=== PATIENT | male | born 1960 | race Caucasian/White ===

== ENCOUNTER → 2020-05-30 12:27 | Outpatient (BNVA) | payer BC, SELFPAY | PROVIDERS: PCP Physician Assistant; Referring Provider Physician Assistant; Visit Provider Physician Assistant | DX: Z76.89 Persons encountering health services in other specified circumstances (principal) ==

== ENCOUNTER 2020-07-06 09:08 | Outpatient (REF) | payer BC, SELFPAY ==
--- NOTE | 2020-07-06 09:11 | XR_ITS ---
EXAMINATION: XR HIP, LEFT CLINICAL INFORMATION: Left hip pain. COMPARISON: 05/24/2020 TECHNIQUE: Pelvis 2 views. Left hip 2 views. FINDINGS: LEFT HIP: Left hip arthroplasty in position. Stable positioning of the arthroplasty components. No evidence of acute fracture. PELVIS: Status post right total hip arthroplasty. Stable positioning. No evidence of fracture or hardware loosening. Gas and stool projected over the pelvic bones limiting evaluation. No acute pelvic fractures. Stable sclerotic focus about the superior aspect of the right pubis. XR/XR hip LT w PEL1V IMPRESSION: Stable left total hip arthroplasty. No acute findings. Stable right total hip arthroplasty. No evidence of hardware failure. Stable sclerotic focus above the superior aspect of the right pubis, of uncertain significance.
== END 2020-07-06 09:09 | disposition home or self-care (01) ==
LOC: HO.HOSX 09:08
PROVIDERS: PCP Physician Assistant; Referring Provider Physician Assistant; Visit Provider Orthopaedic Surgery
DX: M25.552 Pain in left hip (principal); Z96.642 Presence of left artificial hip joint
CPT/HCPCS: 73502

== ENCOUNTER 2020-08-17 09:02 | Outpatient (REF) | payer BC, SELFPAY ==
--- NOTE | 2020-08-17 09:07 | XR_ITS ---
EXAMINATION: XR HIP, LEFT CLINICAL INFORMATION: Left hip pain COMPARISON: Previous x-ray 07/06/2020 TECHNIQUE: Two views of the left hip and 2 views of the pelvis. FINDINGS: There are bilateral hip replacements in satisfactory position. No fracture, dislocation or x-ray evidence of loosening is seen. Bones of the pelvis are unremarkable. Soft tissues are unremarkable. XR/XR hip LT w PEL1V IMPRESSION: Satisfactory appearance of bilateral hip replacements.
== END 2020-08-17 09:03 | disposition home or self-care (01) ==
LOC: HO.HOSX 09:02
PROVIDERS: PCP Physician Assistant; Visit Provider Orthopaedic Surgery
DX: M16.12 Unilateral primary osteoarthritis, left hip (principal); M25.552 Pain in left hip
CPT/HCPCS: 73502

== ENCOUNTER → 2020-12-20 08:52 | Outpatient (BNVA) | payer BC, SELFPAY | PROVIDERS: PCP Physician Assistant; Visit Provider Orthopaedic Surgery ==

== ENCOUNTER 2021-05-11 08:11 | Outpatient (REF) | payer BC, SELFPAY ==
--- NOTE | ~2021-05-11 | XR_ITS ---
EXAMINATION: XR PELVIS XR HIP, RIGHT XR HIP, LEFT CLINICAL INFORMATION: Pain COMPARISON: Hip radiograph from 08/17/2020, right hip radiograph from 04/06/2020 TECHNIQUE: 2 views of the pelvis and 2 views of each hip FINDINGS: No acute visible fracture or dislocation. Status post bilateral hip arthroplasties. Orthopedic hardware is grossly intact. Degenerative changes of the lumbosacral junction. Pelvic phleboliths are noted. Soft tissues are unremarkable. XR/XR pelvis 1-2V IMPRESSION: 1. Status post bilateral hip arthroplasty with intact orthopedic hardware. 2. No acute visible fracture or dislocation.
--- NOTE | ~2021-05-11 | XR_ITS ---
EXAMINATION: XR PELVIS XR HIP, RIGHT XR HIP, LEFT CLINICAL INFORMATION: Pain COMPARISON: Hip radiograph from 08/17/2020, right hip radiograph from 04/06/2020 TECHNIQUE: 2 views of the pelvis and 2 views of each hip FINDINGS: No acute visible fracture or dislocation. Status post bilateral hip arthroplasties. Orthopedic hardware is grossly intact. Degenerative changes of the lumbosacral junction. Pelvic phleboliths are noted. Soft tissues are unremarkable. XR/XR hip RT min 2V IMPRESSION: 1. Status post bilateral hip arthroplasty with intact orthopedic hardware. 2. No acute visible fracture or dislocation.
--- NOTE | ~2021-05-11 | XR_ITS ---
EXAMINATION: XR PELVIS XR HIP, RIGHT XR HIP, LEFT CLINICAL INFORMATION: Pain COMPARISON: Hip radiograph from 08/17/2020, right hip radiograph from 04/06/2020 TECHNIQUE: 2 views of the pelvis and 2 views of each hip FINDINGS: No acute visible fracture or dislocation. Status post bilateral hip arthroplasties. Orthopedic hardware is grossly intact. Degenerative changes of the lumbosacral junction. Pelvic phleboliths are noted. Soft tissues are unremarkable. XR/XR hip LT min 2V IMPRESSION: 1. Status post bilateral hip arthroplasty with intact orthopedic hardware. 2. No acute visible fracture or dislocation.
== END 2021-05-11 08:12 | disposition home or self-care (01) ==
LOC: HO.HOSX 08:11
PROVIDERS: Visit Provider Physician Assistant
DX: Z96.642 Presence of left artificial hip joint (principal)
CPT/HCPCS: 72170; 73502

== ENCOUNTER 2021-06-10 09:40 | Emergency (ER) | payer BC, SELFPAY ==
--- NOTE | ~2021-06-10 | US_ITS ---
EXAMINATION: US VENOUS ULTRASOUND WITH DOPPLER LOWER EXTREMITY, RIGHT CLINICAL INFORMATION: Right lower extremity swelling. COMPARISON: None TECHNIQUE: Ultrasound of the deep veins is performed from the hip to the calf with compression sonography and color and pulse Doppler assessment. Spectral analysis with color-flow imaging is performed. FINDINGS: There is normal venous compression and respiratory variation and augmented flow of the common femoral and the profunda femoral veins. Nonocclusive thrombus is identified starting from the proximal thigh involving the femoral vein extending into the popliteal vein and the catheter. The peroneal veins are not visualized. Evaluation is slightly technically limited due to patient's body habitus. There is no significant popliteal fossa cyst. US/US venous duplex LE RT IMPRESSION: Nonocclusive thrombus extending from the level of the proximal thigh to the calf involving the right femoral and popliteal veins. Slightly technically limited study due to patient's body habitus.
--- NOTE | ~2021-06-10 | XR_ITS ---
EXAMINATION: XR TIBIA AND FIBULA, RIGHT CLINICAL INFORMATION: Cellulitis. Rule out osteomyelitis. COMPARISON: None TECHNIQUE: AP and lateral views of the right tibia and fibula were obtained. FINDINGS: No fracture of the right tibia or fibula. There is mild diffuse soft tissue swelling of the right calf. No radiopaque foreign body identified. No gross cortical irregularity to suggest osteomyelitis. Visualized portion of the knee and ankle are grossly unremarkable. Mild vascular calcifications noted. XR/XR tibia fibula RT 2V IMPRESSION: No radiographic evidence to suggest osteomyelitis within the right tibia or fibula. If high clinical suspicion persists, further evaluation can be obtained with MRI imaging.
[2021-06-10 09:58] VITALS: BP 165/101; PULSE 94; RESP 18; TEMP 36.7; O2SAT 96; BMI 47.0
[2021-06-10 10:00] VITALS: BP 170/99; PULSE 94
--- NOTE | 2021-06-10 11:13 | ED.EXTPRO ---
HPI - Extremity Problem General Chief complaint: Extremity Problem Stated complaint: R LEG SWELLING Time Seen by Provider: 06/10/21 09:50 Source: patient Mode of arrival: ambulatory Limitations: no limitations History of Present Illness HPI Narrative: 61-year-old male came in for evaluation of her right lower extremities swelling. For the past week patient notice increased swelling of her right lower extremities, patient been having issue with chronic edema to both lower extremities after he had bilateral hip replacement, right lower extremities edema was worsening over the past week, patient declined trauma history to the right lower extremities, history of recent travel, no history of recent prolonged immobilization. Patient also noted tenderness, hotness, redness to the right lower extremities. No fever, no chills. Patient declined chest pain, shortness of breath. Related Data Home Medications Medication Instructions Recorded Confirmed levothyroxine 50 mcg tablet 50 mcg PO DAILY 05/28/20 05/28/20 lisinopril 20 1 tab PO DAILY 05/28/20 05/28/20 mg-hydrochlorothiazide 25 mg tablet multivitamin 1 cap PO DAILY 05/28/20 05/28/20 oxycodone 10 mg tablet 10 mg PO Q4H PRN 05/28/20 05/28/20 acetaminophen 325 mg tablet 325 mg PO QID PRN 05/30/20 (Tylenol) Previous Rx's Medication Instructions Recorded celecoxib 200 mg capsule 200 mg PO BID #180 cap 06/23/20 apixaban 5 mg (74 tabs) tablets in 5 mg PO PER PKG DIR #74 ea 06/10/21 a dose pack (Eliquis DVT-PE Treat 30D Start) doxycycline hyclate 100 mg tablet 100 mg PO BID #14 tab 06/10/21 Allergies Allergy/AdvReac Type Severity Reaction Status Date / Time No Known Allergies Allergy Verified 05/11/21 09:03 [No Known Allergies*] Review of Systems Review of Systems: All other systems are reviewed and are negative Constitutional: Reports as per HPI and Reports no additional constitutional complaints Eyes: Reports as per HPI and Reports no additional eye complaints Reports system reviewed and no additional complaints, except as documented Cardiovascular: Reports as per HPI and Reports no additional cardiovascular complaints Respiratory: Reports as per HPI and Reports no additional respiratory complaints Gastrointestinal: Reports as per HPI and Reports no additional gastrointestinal complaints Genitourinary: Reports no additional female genitourinary complaints Musculoskeletal: Reports no additional musculoskeletal complaints Skin/Breast: Reports system reviewed and no additional complaints, except as docu Psychiatric: Reports no additional psychiatric complaints Endocrine: Reports no additional endocrine complaints Hematologic/Lymphatic: Reports no additional hematologic/lymphatic complaints Allergic/Immunologic: Reports no additional allergic/immunologic complaints Reports system reviewed and no additional complaints, except as documented and Reports Abnormal speech present [facility] Past Medical History Medical History Hypertension Hypothyroidism Surgical History History of total right hip replacement (~05/23/20) Family History Family History Mother No problems noted. Father No problems noted. 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 Blood pressure normal. Heart rate normal. Respiration rate normal. Temperature normal. Oxygen saturation normal. Appearance: Alert. Oriented X3. No acute distress. Head: Normal external exam. Normocephalic. Atraumatic. No Peoples signs noted. No raccoon eyes noted Eyes: PERRLA. EOMI. Conjunctiva and sclera normal. Eyelids normal. ENT: TM's Normal. Pharynx normal. Uvula midline. Moist mucous membranes. No trismus noted. No drooling noted. No muffled voice noted. Neck: Normal inspection. Neck supple. FROM. No adenopathy. Thyroid Normal. No meningeal signs. No neck mass noted. CVS: Normal heart rate and rhythm. Heart sound normal. No murmurs noted. Pulses normal throughout. Respiratory: No respiratory distress. Painless inspiration. Breath sounds normal. No wheezes/rales/rhonchi noted. Chest nontender. No accessory muscle usage noted or decreased air movement noted. Abdomen: Soft and nontender. Bowel sounds normal in all 4 quadrants. No distention noted. No organomegaly noted. No visible injury noted. Back: No CVA tenderness. Full range of motion noted. Skin: Skin warm and dry. Normal skin color. Normal skin turgor. No rashes/lesions/lacerations noted. Extremities: +2 right lower extremity edema. 6 x 7 cm oval area of redness, hotness, tenderness on the brambila of her right leg, Extremities exhibit normal range of motion. Extremities nontender. Neuro: Oriented X 3. Cranial nerve exam: II-XII are grossly intact No motor deficit. No sensory deficit. Reflexes normal. Course Course Course Narrative: Assessment and plan. 61-year-old male came in with right lower extremities pain and swelling with cellulitis, patient had an ultrasound which revealed DVT. Patient has no pulmonary symptoms, with stable vital sign which do not reflect a picture of acute pulmonary embolism. Will start the patient on doxycycline for acute cellulitis, and start patient on Eliquis for DVT. MDM - Extremity (Nontraumatic) Lab Data Attestation: I reviewed the patient's lab results. Result diagrams: 06/10/21 11:28 06/10/21 11:28 Labs: Lab Results 06/10/21 06/10/21 06/10/21 Range/Units 11:28 11:28 11:28 WBC 10.3 (4.8-10.8) X10*3/uL RBC 5.00 (4.60-5.80) X10*6/uL Hgb 13.7 L (14.0-18.0) g/dl Hct 41.8 L (42-52) % MCV 83.6 (80-98) fL MCH 27.4 (27.0-33.0) pg MCHC 32.8 (31.0-36.0) g/dl RDW 13.7 (11.0-16.0) % Plt Count 269 (160-400) X10*3/uL MPV 9.3 L (9.4-12.4) fL Immature Gran % (Auto) 1.2 H (0.0-0.4) % Neut % (Auto) 66.7 (45-73) % Lymph % (Auto) 19.1 L (20-40) % [place] % (Auto) 11.3 H (2-11) % Eos % (Auto) 1.4 (0-4) % Baso % (Auto) 0.3 (0-2) % Lymph # (Auto) 2.0 (1.2-4.9) X10*3/uL [place] # (Auto) 1.2 (0.1-1.2) X10*3/uL Eos # (Auto) 0.1 (0.0-0.4) X10*3/uL Baso # (Auto) 0.0 (0.0-0.2) X10*3/uL Abs Immat Gran (auto) 0.12 H (0.00-0.03) X10*3/uL Absolute Neuts (auto) 6.9 (2.0-8.3) X10*3/uL Absolute Nucleated RBC 0.000 (0.0-0.012) X10*3/uL Nucleated RBC % (auto) 0.0 (0.0-0.2) /100WBC PT (9.9-13.0) SEC INR (0.9-1.1) APTT (24.1-38.0) SEC Sodium 138 (135-145) mmol/L Potassium 4.1 (3.3-5.1) mmol/L Chloride 104 (96-108) mmol/L Carbon Dioxide 23 (22-29) mmol/L Anion Gap 15 (12-20) BUN 18 H (9-16) mg/dL Creatinine 0.83 (0.5-1.4) mg/dL Estim Creat Clear Calc 144.7 Estimated GFR > 60 Random Glucose 117 H (60-115) mg/dL Lactic Acid 1.6 (0.5-2.0) mmol/L Calcium 9.4 (8.4-10.2) mg/dL Total Bilirubin 0.8 (0.0-1.0) mg/dL Direct Bilirubin 0.3 (0.0-0.5) mg/dL AST 29 (5-37) U/L ALT 37 (0-40) U/L Alkaline Phosphatase 52 (39-117) U/L Total Protein 7.6 (6.5-8.0) g/dL Albumin 3.9 (3.5-5.0) g/dL Lipase 30 (8-78) U/L Urine Color Urine Appearance Urine pH (5.0-8.0) Ur Specific [place] (1.005-1.025) Urine Protein (NEG-TRACE) MG/DL Urine Glucose (UA) (NEG) MG/DL Urine Ketones (NEG) MG/DL Urine Blood (NEG) Urine Nitrite (NEG) Ur Leukocyte Esterase (NEG) 06/10/21 06/10/21 Range/Units 11:28 12:03 WBC (4.8-10.8) X10*3/uL RBC (4.60-5.80) X10*6/uL Hgb (14.0-18.0) g/dl Hct (42-52) % MCV (80-98) fL MCH (27.0-33.0) pg MCHC (31.0-36.0) g/dl RDW (11.0-16.0) % Plt Count (160-400) X10*3/uL MPV (9.4-12.4) fL Immature Gran % (Auto) (0.0-0.4) % Neut % (Auto) (45-73) % Lymph % (Auto) (20-40) % [place] % (Auto) (2-11) % Eos % (Auto) (0-4) % Baso % (Auto) (0-2) % Lymph # (Auto) (1.2-4.9) X10*3/uL [place] # (Auto) (0.1-1.2) X10*3/uL Eos # (Auto) (0.0-0.4) X10*3/uL Baso # (Auto) (0.0-0.2) X10*3/uL Abs Immat Gran (auto) (0.00-0.03) X10*3/uL Absolute Neuts (auto) (2.0-8.3) X10*3/uL Absolute Nucleated RBC (0.0-0.012) X10*3/uL Nucleated RBC % (auto) (0.0-0.2) /100WBC PT 13.6 H (9.9-13.0) SEC INR 1.2 H (0.9-1.1) APTT 41.6 H (24.1-38.0) SEC Sodium (135-145) mmol/L Potassium (3.3-5.1) mmol/L Chloride (96-108) mmol/L Carbon Dioxide (22-29) mmol/L Anion Gap (12-20) BUN (9-16) mg/dL Creatinine (0.5-1.4) mg/dL Estim Creat Clear Calc Estimated GFR Random Glucose (60-115) mg/dL Lactic Acid (0.5-2.0) mmol/L Calcium (8.4-10.2) mg/dL Total Bilirubin (0.0-1.0) mg/dL Direct Bilirubin (0.0-0.5) mg/dL AST (5-37) U/L ALT (0-40) U/L Alkaline Phosphatase (39-117) U/L Total Protein (6.5-8.0) g/dL Albumin (3.5-5.0) g/dL Lipase (8-78) U/L Urine Color YELLOW Urine Appearance HAZY Urine pH 6.0 (5.0-8.0) Ur Specific [place] 1.025 (1.005-1.025) Urine Protein NEG (NEG-TRACE) MG/DL Urine Glucose (UA) NEG (NEG) MG/DL Urine Ketones NEG (NEG) MG/DL Urine Blood NEG (NEG) Urine Nitrite NEG (NEG) Ur Leukocyte Esterase NEG (NEG) Imaging Data Right lower extremity ultrasound: Radiologist's impression: Nonocclusive thrombus extending from the level of the proximal thigh to the calf involving the right femoral and popliteal veins. ? Slightly technically limited study due to patient's body habitus. Right leg x-ray: Radiologist's impression: No radiographic evidence to suggest osteomyelitis within the right tibia or fibula. If high clinical suspicion persists, further evaluation can be obtained with MRI imaging. ? Discharge Plan Discharge Clinical Impression: Cellulitis of leg, right Deep venous thrombosis Qualifiers: DVT location: lower extremity Affected thrombotic vein of extremity: femoral Chronicity: acute Laterality: right Qualified Code(s): I82.411 - Acute embolism and thrombosis of right femoral vein Patient Disposition: Home, Self-Care Instructions: Cellulitis (ED), Deep Vein Thrombosis (ED), Deep Vein Thrombosis Prevention (ED) Prescriptions: New doxycycline hyclate 100 mg tablet 100 mg PO BID Qty: 14 RF: 0 Eliquis DVT-PE Treat 30D Start 5 mg (74 tabs) tablets,dose pack 5 mg PO PER PKG DIR Qty: 74 RF: 0 No Action celecoxib 200 mg capsule 200 mg PO BID Qty: 180 RF: 0 levothyroxine 50 mcg tablet 50 mcg PO DAILY RF: 0 lisinopril-hydrochlorothiazide 20-25 mg tablet 1 tab PO DAILY RF: 0 oxycodone 10 mg tablet 10 mg PO Q4H PRNRF: 0 multivitamin Capsule 1 cap PO DAILY RF: 0 Referrals: Radha Chavez PA [Primary Care Provider] - 2 days
[2021-06-10 11:44] LABS: MANUAL DIFF FLAG NO
[2021-06-10 11:45] LABS: Basophils Percent Auto 0.3 % (0-2); Eosinophils Absolute Auto 0.1 X10*3/uL (0.0-0.4); Eosinophils Percent Auto 1.4 % (0-4); Hematocrit 41.8 % (42-52); Hemoglobin 13.7 g/dl (14.0-18.0); Imm Gran Abs Auto 0.12 X10*3/uL (0.00-0.03); Imm Gran Pct Auto 1.2 % (0.0-0.4); Lymphocytes Percent Auto 19.1 % (20-40); Mean Corpuscular HGB Conc 32.8 g/dl (31.0-36.0); Mean Corpuscular Hemoglobin 27.4 pg (27.0-33.0); Mean Corpuscular Volume 83.6 fL (80-98); Mean Platelet Volume 9.3 fL (9.4-12.4); Monocytes Absolute Auto 1.2 X10*3/uL (0.1-1.2); Monocytes Percent Auto 11.3 % (2-11); Neutrophils Absolute Auto 6.9 X10*3/uL (2.0-8.3); Neutrophils Percent Auto 66.7 % (45-73); Platelet Count 269 X10*3/uL (160-400); Red Cell Distribution Width 13.7 % (11.0-16.0); White Blood Count 10.3 X10*3/uL (4.8-10.8)
[2021-06-10 11:47] LABS: Appearance Urine HAZY; Color Urine YELLOW; Glucose Urine UA NEG (NEG); Leukocyte Esterase Urine NEG (NEG); Nitrite Urine NEG (NEG); Specific Gravity - Urine 1.025 (1.005-1.025); Urine Blood NEG (NEG); Urine Ketones NEG (NEG); Urine Protein NEG (NEG-TRACE)
[2021-06-10 11:55] LABS: Lactic Acid 1.6 mmol/L (0.5-2.0)
[2021-06-10 12:01] LABS: Alanine Aminotransferase 37 U/L (0-40); Albumin Level 3.9 g/dL (3.5-5.0); Alkaline Phosphatase 52 U/L (39-117); Anion Gap 15 (12-20); Aspartate Amino Transferase 29 U/L (5-37); Bilirubin Direct 0.3 mg/dL (0.0-0.5); Bilirubin Total 0.8 mg/dL (0.0-1.0); Blood Urea Nitrogen 18 mg/dL (9-16); Calcium 9.4 mg/dL (8.4-10.2); Carbon Dioxide 23 mmol/L (22-29); Chloride 104 mmol/L (96-108); Creatinine Clr Calc Pharmacy 144.7; Estimated Glomerular Filt Rate > 60; Glucose Random 117 mg/dL (60-115); Lipase 30 U/L (8-78); Potassium 4.1 mmol/L (3.3-5.1); Sodium 138 mmol/L (135-145); Total Protein 7.6 g/dL (6.5-8.0)
[2021-06-10 12:04] VITALS: BP 146/85; PULSE 87; RESP 18; TEMP 36.8; O2SAT 98
[2021-06-10] MEDS: 0.9 % Sodium Chloride 1,000 ML 999 ML IVCONT (12:15)
[2021-06-10 12:30] LABS: INTERNATIONAL NORM RATIO 1.2 (0.9-1.1); Prothrombin Time 13.6 SEC (9.9-13.0)
[2021-06-10 12:32] LABS: Partial Thromboplastin Time 41.6 SEC (24.1-38.0)
[2021-06-10 14:00] VITALS: BP 147/87
== END 2021-06-10 14:17 | disposition home or self-care (01) ==
PROVIDERS: Emergency Provider Emergency Medicine; PCP Physician Assistant
DX: I82.411 Acute embolism and thrombosis of right femoral vein (principal); L03.115 Cellulitis of right lower limb; I10 Essential (primary) hypertension; Z96.643 Presence of artificial hip joint, bilateral
CPT/HCPCS: 36415; 73590; 80048; 80076; 81003; 83605; 83690; 85025; 85610; 85730; 87040; 93971; 96360; 99283; 99284

== ENCOUNTER 2022-04-02 14:33 | Inpatient (IN) | payer BC, SELFPAY ==
--- NOTE | ~2022-04-02 | CT_ITS ---
EXAMINATION: CT HEAD WITHOUT CONTRAST CLINICAL INFORMATION: Confusion on Eliquis. COMPARISON: None. TECHNIQUE: Contiguous axial imaging was performed from the skull base to vertex without intravenous contrast. This CT examination was performed using dose optimization techniques as appropriate, variously including the following: * Automated exposure control * Adjustment of mA and/or kV according to patient size (this includes techniques or standardized protocols for targeted exams where dose is matched to indication/reason for exam; i.e. extremities or head) Use of iterative reconstruction technique DLP: 733 mGy-cm. FINDINGS: There is an area of hypoattenuation with loss of robertson to white matter differentiation in the high right parietal lobe. There is no evidence of acute intracranial hemorrhage. No abnormal mass effect or midline shift is seen. No extra-axial fluid collections are identified. No hydrocephalus. No significant volume loss. The osseous structures and soft tissues are normal. Right mastoid air cell effusion. The left mastoid air cells and visualized portions of the paranasal sinuses are well aerated. CT/CT head/brain wo con IMPRESSION: No intracranial hemorrhage. Area of hypoattenuation with loss of robertson to white matter differentiation involving the right parietal lobe, suggestive of infarct of uncertain chronicity. This could be acute/subacute. No prior for comparison.
--- NOTE | ~2022-04-02 | US_ITS ---
EXAMINATION: US EXTRACRANIAL CAROTID DUPLEX, BILATERAL CLINICAL INFORMATION: Stroke. COMPARISON: None TECHNIQUE: Real-time ultrasound and Doppler techniques (integrating B-mode 2-D vascular images, Doppler spectral analysis and color-flow Doppler imaging) were utilized to interrogate the extracranial carotid arteries, the vertebral arteries and proximal subclavian arteries bilaterally. The degree of stenosis is determined by criteria similar to NASCET. Exam is limited due to patient condition and body habitus. FINDINGS: Right Side: 1. There is calcified atherosclerotic plaque seen in the bifurcation/proximal ICA region. 2. The common carotid artery PSV proximally is 105 cm/s and distally 75 cm/s. 3. The proximal internal carotid artery velocities are 101 cm/s systolic and 17 cm/s diastolic. 4. The proximal external carotid artery PSV is 72 cm/s. 5. The vertebral artery is not seen. 6. The subclavian artery waveforms are normal.. Left Side: 1. There is calcified atherosclerotic plaque seen in the bifurcation/proximal ICA region. 2. The common carotid artery PSV proximally is 87 cm/s and distally 91 cm/s. 3. The proximal internal carotid artery velocities are 67 cm/s systolic and 14 cm/s diastolic. 4. The proximal external carotid artery PSV is 112 cm/s. 5. The vertebral artery is not seen. 6. The subclavian artery waveforms are normal. US/US carotid duplex BI IMPRESSION: Limited exam. 1. RIGHT: Calcified plaque and mild 0-49% right ICA stenosis. Right vertebral artery not seen. 2. LEFT: Calcified plaque and mild 0-49% left ICA stenosis. Left vertebral artery not seen.
--- NOTE | ~2022-04-02 | US_ITS ---
EXAMINATION: US ABDOMEN COMPLETE CLINICAL INFORMATION: Hyperbilirubinemia. COMPARISON: None TECHNIQUE: Real-time imaging of the abdominal viscera. Technically limited study secondary to body habitus and patient inability to cooperate. FINDINGS: PANCREAS: Not visualized due to bowel gas. ABDOMINAL AORTA: Not visualized due to bowel gas. INFERIOR VENA CAVA: Not visualized due to bowel gas. LIVER: Liver echotexture is increased. The liver is enlarged, right lobe measuring 24 cm in length The liver contour is normal. No focal hepatic lesion. There is no intrahepatic biliary duct dilatation seen. GALLBLADDER: Normal. The gallbladder is physiologically distended without evidence of stones, sludge, polyps, wall thickening or pericholecystic fluid. COMMON BILE DUCT: Normal in caliber measuring 0.7 cm in diameter. RIGHT KIDNEY: Normal. No hydronephrosis. No renal calculi or focal parenchymal lesions. The kidney measures 15.0 cm in maximum dimension. LEFT KIDNEY: Normal. No hydronephrosis. No renal calculi or focal parenchymal lesions. The kidney measures 13.5 cm in maximum dimension. SPLEEN: The spleen is slightly enlarged. The spleen measures 15.7 cm in maximum dimension. FREE FLUID: None. US/US abdomen complete IMPRESSION: Enlarged echogenic liver and enlarged spleen. Limited visualization of the pancreas, aorta and IVC
--- NOTE | ~2022-04-02 | US_ITS ---
EXAMINATION: US VENOUS ULTRASOUND WITH DOPPLER LOWER EXTREMITY, BILATERAL CLINICAL INFORMATION: Edema. History of DVT. Pain. COMPARISON: 06/10/2020 oh TECHNIQUE: Ultrasound of the deep veins is performed from the hip to the calf with compression sonography and color and pulse Doppler assessment. Spectral analysis with color-flow imaging is performed. FINDINGS: RIGHT: Thrombus identified in the femoral vein at the mid to distal aspect extending through the popliteal vein. The common femoral vein is patent. The posterior tibial vein is patent. There is no significant popliteal fossa cyst. LEFT: There is chronic-appearing partially occlusive thrombus in the femoral vein at the mid to distal thigh. The common femoral vein and profunda femoral vein are patent. Popliteal vein and visualized calf veins are patent. There is no significant popliteal fossa cyst. US/US venous duplex LE BI IMPRESSION: On the right, occlusive thrombus within the femoral vein at the mid to distal aspect through the popliteal vein. On the left, partially occlusive thrombus in the femoral vein, chronic appearing. This critical result was discussed with Merline Mock MD by telephone at 04/02/2022 11:24 PM and it was ascertained that the content and urgency of the report was understood at the time of direct communication.
--- NOTE | ~2022-04-02 | NM_ITS ---
EXAMINATION: PULMONARY PERFUSION STUDY CLINICAL INFORMATION: DVT, rule out PE COMPARISON: No previous lung scan or recent radiographs are available for comparison. TECHNIQUE: Following the intravenous injection of 4.0 mCi Tc-99m MAA, the lungs were imaged in the anterior and posterior, left and right lateral and ALBANIAN, MIJARES, LPO, and RPO projections using a gamma scintillation camera. FINDINGS: No segmental perfusion defects are present. There is homogeneous distribution of activity bilaterally. There are no focal anatomic appearing perfusion defects present. The cardiomediastinal silhouette is mildly dilated. NM/NM pul perfusion IMPRESSION: Very low probability of pulmonary embolism. Dilated cardiomediastinal silhouette.
[2022-04-02 14:54] VITALS: BP 136/73; PULSE 96; RESP 16; TEMP 37.4; O2SAT 96; BMI 32.5
--- NOTE | 2022-04-02 21:58 | ECG_ITS ---
Test Reason : WEAKNESS Blood Pressure : / mmHG Vent. Rate : 092 BPM Atrial Rate : 092 BPM P-R Int : 166 ms QRS Dur : 116 ms QT Int : 390 ms P-R-T Axes : 014 047 045 degrees QTc Int : 482 ms Normal sinus rhythm cannot exclude Lateral infarct , age undetermined Abnormal ECG No previous ECGs available Referred By: Merline Mock Electronically Signed By:MARCELA JO
--- NOTE | 2022-04-02 22:04 | ED_ITS ---
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 Prior the pain medica tions last Saturday he has been experience chills, intermittent confusion, missed 3 days of his eliquis which is not like him, and on exam notes LLE more swollen, red/painful and hot to touch. He didn't mention this to [facility] ER when he went for his shoulder. His is concerned because he just seems more weak, confused at times and he is never cold. MD Complaint: generalized weakness and lack of energy Onset (ago): day(s) (6) Duration: intermittent Location: generalized Severity: moderate Quality: dull Relieving factors: none Exacerbating factors: other (having a hard time at work) Context: trauma/injury (hx of shoulder injury 02/26 but had been doing okay until last saturday when his chills and weakness started. ) Associated symptoms: confusion, fever/chills, loss of appetite and rash Related Data Home Medications Medication Instructions Recorded Confirmed levothyroxine 50 mcg tablet 50 mcg PO DAILY 05/28/20 05/28/20 lisinopril 20 1 tab PO DAILY 05/28/20 05/28/20 mg-hydrochlorothiazide 25 mg tablet multivitamin 1 cap PO DAILY 05/28/20 05/28/20 oxycodone 10 mg tablet 10 mg PO Q4H PRN 05/28/20 05/28/20 acetaminophen 325 mg tablet 325 mg PO QID PRN 05/30/20 (Tylenol) Previous Rx's Medication Instructions Recorded celecoxib 200 mg capsule 200 mg PO BID #180 caps 06/23/20 apixaban 5 mg (74 tabs) tablets in 5 mg PO PER PKG DIR #74 ea 06/10/21 a dose pack ([facility] DVT-PE Treat 30D Start) doxycycline hyclate 100 mg tablet 100 mg PO BID #14 tabs 06/10/21 Allergies Allergy/AdvReac Type Severity Reaction Status Date / Time No Known Allergies Allergy Verified 04/02/22 15:00 [No Known Allergies*] Review of Systems Review of Systems: Constitutional : No Fever, pos Chills ENT/Mouth : No sore throat, No Rhinorrhea Eyes: No Eye Pain, No Swelling, No Redness Cardiovascular : No Chest Pain, No SOB Respiratory : No Cough, No Sputum Gastrointestinal : No Nausea, No Vomiting, No Diarrhea, No abdominal Pain Genitourinary : No Dysuria, No Hematuria Musculoskeletal : pos joint pain, No Myalgias, No Joint Swelling Skin : No Skin Lesions, positive skin rash Neuro : pos Weakness, No Numbness, No Headache, pos confusion Psych : No Anxiety, No Depression Heme/Lymph: No Bruising, No Bleeding,No Lymphadenopathy Endocrine : No Polyuria, No Polydipsia All other systems reviewed and are negative [facility] Past Medical History Attestation statement: The following information was validated with the patient. Medical History DVT (deep venous thrombosis) Hypertension Hypothyroidism Surgical History History of total right hip replacement (~05/23/20) Family History Family History Mother No problems noted. Father No problems noted. 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 Oriented X3. No acute distress. Eyes: Pupils equal, round and reactive to light. ENT: Pharynx normal. Atraumatic Neck: Normal inspection. Neck supple. CVS: Normal heart rate and rhythm. Pulses normal. Respiratory: No respiratory distress. Breath sounds normal. Abdomen: Soft and nontender. Obese Skin: Skin warm and dry. Normal skin color. L leg anterior brambila - almost circumferential red hot to touch painful no crepitus felt no fluctuance some clear weeping noted in areas Extremities: bilateral pitting lower extremity edema 2+. L calf ttp Neuro: Oriented X 3. No motor deficit. No sensory deficit. L anterior brambila Course Course Course Narrative: call from Radiology - 1126pm - DVT US + bilateral DVT R occluse FV through knee, L partially occlusive looks more chronic once CT scan complete and no ICH will start on heparin has not been on DOAC in over 48 hours symptoms of confusion and onset 6 days ago - suspect subacute stroke given DVTs and JACY will start on heparin gtt repeat trop flat MDM - Weakness MDM Narrative Medical decision making narrative: 62 yo male with hx of arthritis, bilateral DVT on eliquis, HTN, hypothyroidism, R shoulder pain x 1 month s/p fall suspect rotator cuff but he has only had xrays at this time. He comes in with intermittent confusion, chills, LLE cellulitis - at this time will need labs, lactic acid, cultures, CT head for ICH given eliquis use and confusion reported at home. DVT studies of both legs - he missed his dose of eliquis for 3 days. IV zosyn for cellulitis ordered. Dispo per results and clinical improvement. Lab Data Result diagrams: 04/02/22 22:28 04/02/22 23:31 Labs: Lab Results 04/02/22 04/02/22 04/02/22 Range/Units 22:28 22:28 22:28 WBC 11.9 H (4.8-10.8) X10*3/uL RBC 4.94 (4.60-5.80) X10*6/uL Hgb 13.3 L (14.0-18.0) g/dl Hct 40.6 L (42.0-52.0) % MCV 82.2 (80.0-98.0) fL MCH 26.9 L (27.0-33.0) pg MCHC 32.8 (31.0-36.0) g/dl RDW 15.2 (11.0-16.0) % Plt Count 199 (160-400) X10*3/uL MPV 9.9 (9.4-12.4) fL Immature Gran % (Auto) Cancelled Neut % (Auto) Cancelled Lymph % (Auto) Cancelled [place] % (Auto) Cancelled Eos % (Auto) Cancelled Baso % (Auto) Cancelled Lymph # (Auto) Cancelled [place] # (Auto) Cancelled Eos # (Auto) Cancelled Baso # (Auto) Cancelled Abs Immat Gran (auto) Cancelled Absolute Neuts (auto) Cancelled Absolute Nucleated RBC 0.020 H (0.0-0.012) X10*3/uL Nucleated RBC % (auto) 0.2 (0.0-0.2) /100WBC Neutrophils % (Manual) 62 (45-73) % Band Neutrophils % 2 L (3-5) % Lymphocytes % (Manual) 13 L (20-40) % Monocytes % (Manual) 16 H (2-11) % Eosinophils % (Manual) 1 (0-4) % Metamyelocytes % 5 % Myelocytes % 1 % Abs Neuts (Manual) 7.6 (2.0-8.3) X10*3/uL Lymphocytes # (Manual) 1.5 (1.2-4.9) X10*3/uL Monocytes # (Manual) 1.9 H (0.1-1.2) X10*3/uL Eosinophils # (Manual) 0.1 (0.0-0.4) X10*3/uL Metamyelocytes # 0.6 X10*3/uL Myelocytes # 0.1 X10*/uL Toxic Granulation PRESENT Dohle Bodies PRESENT Platelet Estimate NORMAL (NORMAL) Plt Morphology Comment NORMAL RBC Morphology NORMAL PT 16.0 H (10.0-13.1) SEC INR 1.4 H (0.9-1.1) APTT (26.0-36.4) SEC D-Dimer High Sensitivty 2079 NG/ML Sodium (135-145) mmol/L Potassium (3.3-5.1) mmol/L Chloride (96-108) mmol/L Carbon Dioxide (22-29) mmol/L Anion Gap (12-20) BUN (9-16) mg/dL Creatinine (0.5-1.4) mg/dL Estim Creat Clear Calc Estimated GFR Random Glucose (60-115) mg/dL Lactic Acid (0.5-2.0) mmol/L Calcium (8.4-10.2) mg/dL Magnesium Total Bilirubin (0.0-1.0) mg/dL AST (5-37) U/L ALT (0-40) U/L Alkaline Phosphatase (39-117) U/L Total Creatine Kinase (38-174) U/L Troponin I High Sens 632.5 H* (<3.5-35.0) ng/L B-Natriuretic Peptide (<100) pg/mL Total Protein (6.5-8.0) g/dL Albumin (3.5-5.0) g/dL Urine Color Urine Appearance Urine pH (5.0-8.0) Ur Specific [place] (1.005-1.025) Urine Protein (NEG-TRACE) MG/DL Urine Glucose (UA) (NEG) MG/DL Urine Ketones (NEG) MG/DL Urine Blood (NEG) Urine Nitrite (NEG) Ur Leukocyte Esterase (NEG) Urine RBC (0) /HPF Urine WBC (0-4) /HPF Ur Squamous Epith Cells /LPF Amorphous Sediment /LPF Urine Bacteria /LPF Urine Mucus /LPF COVID-19 ([place]) (Negative) COVID-19 Clin Com 04/02/22 04/02/22 04/02/22 Range/Units 22:28 22:28 22:28 WBC (4.8-10.8) X10*3/uL RBC (4.60-5.80) X10*6/uL Hgb (14.0-18.0) g/dl Hct (42.0-52.0) % MCV (80.0-98.0) fL MCH (27.0-33.0) pg MCHC (31.0-36.0) g/dl RDW (11.0-16.0) % Plt Count (160-400) X10*3/uL MPV (9.4-12.4) fL Immature Gran % (Auto) Neut % (Auto) Lymph % (Auto) [place] % (Auto) Eos % (Auto) Baso % (Auto) Lymph # (Auto) [place] # (Auto) Eos # (Auto) Baso # (Auto) Abs Immat Gran (auto) Absolute Neuts (auto) Absolute Nucleated RBC (0.0-0.012) X10*3/uL Nucleated RBC % (auto) (0.0-0.2) /100WBC Neutrophils % (Manual) (45-73) % Band Neutrophils % (3-5) % Lymphocytes % (Manual) (20-40) % Monocytes % (Manual) (2-11) % Eosinophils % (Manual) (0-4) % Metamyelocytes % % Myelocytes % % Abs Neuts (Manual) (2.0-8.3) X10*3/uL Lymphocytes # (Manual) (1.2-4.9) X10*3/uL Monocytes # (Manual) (0.1-1.2) X10*3/uL Eosinophils # (Manual) (0.0-0.4) X10*3/uL Metamyelocytes # X10*3/uL Myelocytes # X10*/uL Toxic Granulation Dohle Bodies Platelet Estimate (NORMAL) Plt Morphology Comment RBC Morphology PT 16.6 H (10.0-13.1) SEC INR 1.4 H (0.9-1.1) APTT 31.4 (26.0-36.4) SEC D-Dimer High Sensitivty NG/ML Sodium (135-145) mmol/L Potassium (3.3-5.1) mmol/L Chloride (96-108) mmol/L Carbon Dioxide (22-29) mmol/L Anion Gap (12-20) BUN (9-16) mg/dL Creatinine (0.5-1.4) mg/dL Estim Creat Clear Calc Estimated GFR Random Glucose (60-115) mg/dL Lactic Acid (0.5-2.0) mmol/L Calcium (8.4-10.2) mg/dL Magnesium Total Bilirubin (0.0-1.0) mg/dL AST (5-37) U/L ALT (0-40) U/L Alkaline Phosphatase (39-117) U/L Total Creatine Kinase (38-174) U/L Troponin I High Sens (<3.5-35.0) ng/L B-Natriuretic Peptide 78 (<100) pg/mL Total Protein (6.5-8.0) g/dL Albumin (3.5-5.0) g/dL Urine Color Urine Appearance Urine pH (5.0-8.0) Ur Specific [place] (1.005-1.025) Urine Protein (NEG-TRACE) MG/DL Urine Glucose (UA) (NEG) MG/DL Urine Ketones (NEG) MG/DL Urine Blood (NEG) Urine Nitrite (NEG) Ur Leukocyte Esterase (NEG) Urine RBC (0) /HPF Urine WBC (0-4) /HPF Ur Squamous Epith Cells /LPF Amorphous Sediment /LPF Urine Bacteria /LPF Urine Mucus /LPF COVID-19 ([place]) Negative (Negative) COVID-19 Clin Com See Note 04/02/22 04/02/22 04/02/22 Range/Units 22:28 22:28 22:46 WBC (4.8-10.8) X10*3/uL RBC (4.60-5.80) X10*6/uL Hgb (14.0-18.0) g/dl Hct (42.0-52.0) % MCV (80.0-98.0) fL MCH (27.0-33.0) pg MCHC (31.0-36.0) g/dl RDW (11.0-16.0) % Plt Count (160-400) X10*3/uL MPV (9.4-12.4) fL Immature Gran % (Auto) Neut % (Auto) Lymph % (Auto) [place] % (Auto) Eos % (Auto) Baso % (Auto) Lymph # (Auto) [place] # (Auto) Eos # (Auto) Baso # (Auto) Abs Immat Gran (auto) Absolute Neuts (auto) Absolute Nucleated RBC (0.0-0.012) X10*3/uL Nucleated RBC % (auto) (0.0-0.2) /100WBC Neutrophils % (Manual) (45-73) % Band Neutrophils % (3-5) % Lymphocytes % (Manual) (20-40) % Monocytes % (Manual) (2-11) % Eosinophils % (Manual) (0-4) % Metamyelocytes % % Myelocytes % % Abs Neuts (Manual) (2.0-8.3) X10*3/uL Lymphocytes # (Manual) (1.2-4.9) X10*3/uL Monocytes # (Manual) (0.1-1.2) X10*3/uL Eosinophils # (Manual) (0.0-0.4) X10*3/uL Metamyelocytes # X10*3/uL Myelocytes # X10*/uL Toxic Granulation Dohle Bodies Platelet Estimate (NORMAL) Plt Morphology Comment RBC Morphology PT (10.0-13.1) SEC INR (0.9-1.1) APTT (26.0-36.4) SEC D-Dimer High Sensitivty NG/ML Sodium (135-145) mmol/L Potassium (3.3-5.1) mmol/L Chloride (96-108) mmol/L Carbon Dioxide (22-29) mmol/L Anion Gap (12-20) BUN (9-16) mg/dL Creatinine (0.5-1.4) mg/dL Estim Creat Clear Calc Estimated GFR Random Glucose (60-115) mg/dL Lactic Acid 1.7 (0.5-2.0) mmol/L Calcium (8.4-10.2) mg/dL Magnesium Cancelled Total Bilirubin (0.0-1.0) mg/dL AST (5-37) U/L ALT (0-40) U/L Alkaline Phosphatase (39-117) U/L Total Creatine Kinase (38-174) U/L Troponin I High Sens (<3.5-35.0) ng/L B-Natriuretic Peptide (<100) pg/mL Total Protein (6.5-8.0) g/dL Albumin (3.5-5.0) g/dL Urine Color YELLOW Urine Appearance CLEAR Urine pH 6.0 (5.0-8.0) Ur Specific [place] 1.015 (1.005-1.025) Urine Protein TRACE (NEG-TRACE) MG/DL Urine Glucose (UA) NEG (NEG) MG/DL Urine Ketones NEG (NEG) MG/DL Urine Blood TRACE (NEG) Urine Nitrite NEG (NEG) Ur Leukocyte Esterase NEG (NEG) Urine RBC 0 (0) /HPF Urine WBC 0 (0-4) /HPF Ur Squamous Epith Cells NONE /LPF Amorphous Sediment 1+ /LPF Urine Bacteria NONE /LPF Urine Mucus 1+ /LPF COVID-19 ([place]) (Negative) COVID-19 Clin Com 04/02/22 04/03/22 Range/Units 23:31 01:20 WBC (4.8-10.8) X10*3/uL RBC (4.60-5.80) X10*6/uL Hgb (14.0-18.0) g/dl Hct (42.0-52.0) % MCV (80.0-98.0) fL MCH (27.0-33.0) pg MCHC (31.0-36.0) g/dl RDW (11.0-16.0) % Plt Count (160-400) X10*3/uL MPV (9.4-12.4) fL Immature Gran % (Auto) Neut % (Auto) Lymph % (Auto) [place] % (Auto) Eos % (Auto) Baso % (Auto) Lymph # (Auto) [place] # (Auto) Eos # (Auto) Baso # (Auto) Abs Immat Gran (auto) Absolute Neuts (auto) Absolute Nucleated RBC (0.0-0.012) X10*3/uL Nucleated RBC % (auto) (0.0-0.2) /100WBC Neutrophils % (Manual) (45-73) % Band Neutrophils % (3-5) % Lymphocytes % (Manual) (20-40) % Monocytes % (Manual) (2-11) % Eosinophils % (Manual) (0-4) % Metamyelocytes % % Myelocytes % % Abs Neuts (Manual) (2.0-8.3) X10*3/uL Lymphocytes # (Manual) (1.2-4.9) X10*3/uL Monocytes # (Manual) (0.1-1.2) X10*3/uL Eosinophils # (Manual) (0.0-0.4) X10*3/uL Metamyelocytes # X10*3/uL Myelocytes # X10*/uL Toxic Granulation Dohle Bodies Platelet Estimate (NORMAL) Plt Morphology Comment RBC Morphology PT (10.0-13.1) SEC INR (0.9-1.1) APTT (26.0-36.4) SEC D-Dimer High Sensitivty NG/ML Sodium 134 L (135-145) mmol/L Potassium 3.9 (3.3-5.1) mmol/L Chloride 98 (96-108) mmol/L Carbon Dioxide 23 (22-29) mmol/L Anion Gap 17 (12-20) BUN 55 H (9-16) mg/dL Creatinine 1.90 H (0.5-1.4) mg/dL Estim Creat Clear Calc 51.3 Estimated GFR 36 Random Glucose 130 H (60-115) mg/dL Lactic Acid (0.5-2.0) mmol/L Calcium 8.6 D (8.4-10.2) mg/dL Magnesium 1.7 Total Bilirubin 2.4 H (0.0-1.0) mg/dL AST 68 H (5-37) U/L ALT 71 H (0-40) U/L Alkaline Phosphatase 89 D (39-117) U/L Total Creatine Kinase 122 (38-174) U/L Troponin I High Sens 627.2 H* (<3.5-35.0) ng/L B-Natriuretic Peptide (<100) pg/mL Total Protein 6.7 (6.5-8.0) g/dL Albumin 3.3 L (3.5-5.0) g/dL Urine Color Urine Appearance Urine pH (5.0-8.0) Ur Specific [place] (1.005-1.025) Urine Protein (NEG-TRACE) MG/DL Urine Glucose (UA) (NEG) MG/DL Urine Ketones (NEG) MG/DL Urine Blood (NEG) Urine Nitrite (NEG) Ur Leukocyte Esterase (NEG) Urine RBC (0) /HPF Urine WBC (0-4) /HPF Ur Squamous Epith Cells /LPF Amorphous Sediment /LPF Urine Bacteria /LPF Urine Mucus /LPF COVID-19 ([place]) (Negative) COVID-19 Clin Com ECG Data Attestation: I personally reviewed and interpreted this ECG as follows: ECG interpretation date: 04/02/22 ECG interpretation time: 23:27 Interpretation: Rate: 92 Rhythm: NSR [place]: normal Normal P waves. Normal RENE. Normal QRS complex. ST T wave : normal no CLIFF qTC: normal prior studies: no acute ischemia The study has been interpreted contemporaneously by me. . Critical Care Time Critical Care Time Critical Care Time: Yes Total Critical Care Time: 60 Attestation: repeat labs, troponin x 2, heparin gtt, admission, IV antibiotics I attest to this time spent taking care of the patient Discharge Plan Discharge Clinical Impression: Cellulitis, DVT (deep venous thrombosis), Elevated troponin, JACY (acute kidney injury) CVA (cerebral vascular accident) Qualifiers: CVA mechanism: unspecified Qualified Code(s): I63.9 - Cerebral infarction, unspecified Patient Disposition: Admitted As Inpatient
[2022-04-02] MEDS: Acetaminophen 325 MG TABLET 650 MG PO (22:32)
[2022-04-02] MEDS: Piperacillin Sodium/Tazobactam 3.375 GM in 0.9 % Sodium Chloride 50 ML IV (22:32)
[2022-04-02 22:50] LABS: Hematocrit 40.6 % (42.0-52.0); Hemoglobin 13.3 g/dl (14.0-18.0); Mean Corpuscular HGB Conc 32.8 g/dl (31.0-36.0); Mean Corpuscular Hemoglobin 26.9 pg (27.0-33.0); Mean Corpuscular Volume 82.2 fL (80.0-98.0); Mean Platelet Volume 9.9 fL (9.4-12.4); NRBC Pct Auto 0.2 /100WBC (0.0-0.2); Platelet Count 199 X10*3/uL (160-400); Red Blood Count 4.94 X10*6/uL (4.60-5.80); Red Cell Distribution Width 15.2 % (11.0-16.0); White Blood Count 11.9 X10*3/uL (4.8-10.8)
[2022-04-02 22:56] LABS: INTERNATIONAL NORM RATIO 1.4 (0.9-1.1); Prothrombin Time 16.6 SEC (10.0-13.1)
[2022-04-02 22:57] LABS: Lactic Acid 1.7 mmol/L (0.5-2.0)
[2022-04-02 22:58] LABS: D Dimer High Sensitivity 2079 NG/ML
[2022-04-02 23:03] LABS: Appearance Urine CLEAR; Color Urine YELLOW; Glucose Urine UA NEG (NEG); Leukocyte Esterase Urine NEG (NEG); Nitrite Urine NEG (NEG); Specific Gravity - Urine 1.015 (1.005-1.025); UACC Culture Trigger NO; Urine Blood TRACE (NEG); Urine Ketones NEG (NEG); Urine Protein TRACE MG/DL (NEG-TRACE)
[2022-04-02 23:07] LABS: B Type Natriuretic Peptide 78 pg/mL (<100)
[2022-04-02 23:10] LABS: COVID-19 Test Negative (Negative); IDNOW Serial# 55D5AD1C
[2022-04-02 23:12] LABS: Band Neutrophils Percent 2 % (3-5); Eosinophils Absolute Manual 0.1 X10*3/uL (0.0-0.4); Eosinophils Percent Manual 1 % (0-4); Lymphocytes Absolute Manual 1.5 X10*3/uL (1.2-4.9); Lymphocytes Percent Manual 13 % (20-40); Metamyelocytes Absolute 0.6 X10*3/uL; Metamyelocytes Percent 5 %; Monocytes Absolute Manual 1.9 X10*3/uL (0.1-1.2); Monocytes Percent Manual 16 % (2-11); Myelocytes Absolute 0.1 X10*/uL; Myelocytes Percent 1 %; Neutrophils Absolute Manual 7.6 X10*3/uL (2.0-8.3); Neutrophils Percent Manual 62 % (45-73)
[2022-04-02 23:13] LABS: Dohle Bodies PRESENT; Platelet Estimate NORMAL (NORMAL); Platelet Morphology Comment NORMAL; RBC Morphology NORMAL; Toxic Granulation PRESENT
[2022-04-02 23:17] LABS: Troponin-I High Sensitivity 632.5 ng/L (<3.5-35.0)
[2022-04-02 23:30] LABS: Amorphous Sediment Urine 1+ /LPF; Mucus Urine 1+ /LPF; RBC Urine 0 /HPF (0); WBC Urine 0 /HPF (0-4)
[2022-04-02 23:58] LABS: Alanine Aminotransferase 71 U/L (0-40); Albumin Level 3.3 g/dL (3.5-5.0); Alkaline Phosphatase 89 U/L (39-117); Anion Gap 17 (12-20); Aspartate Amino Transferase 68 U/L (5-37); Bilirubin Total 2.4 mg/dL (0.0-1.0); Blood Urea Nitrogen 55 mg/dL (9-16); Calcium 8.6 mg/dL (8.4-10.2); Carbon Dioxide 23 mmol/L (22-29); Chloride 98 mmol/L (96-108); Creatinine Clr Calc Pharmacy 51.3; Estimated Glomerular Filt Rate 36; Glucose Random 130 mg/dL (60-115); Magnesium 1.7 mg/dL (1.6-2.6); Potassium 3.9 mmol/L (3.3-5.1); Sodium 134 mmol/L (135-145); Total Protein 6.7 g/dL (6.5-8.0)
[2022-04-03] VITALS (19 sets, daily range): BP systolic 94–147; BP diastolic 54–74; PULSE 80–223; RESP 16–20; TEMP 36.1–38.4; O2SAT 92–96; BMI 49.4
--- NOTE | 2022-04-03 | ECG_ITS ---
Test Reason : RHYTHM CHANGE Blood Pressure : / mmHG Vent. Rate : 136 BPM Atrial Rate : 234 BPM P-R Int : 000 ms QRS Dur : 122 ms QT Int : 318 ms P-R-T Axes : 079 052 -25 degrees QTc Int : 478 ms Atrial flutter with variable A-V block Non-specific intra-ventricular conduction delay Nonspecific ST abnormality Abnormal ECG When compared with ECG of 02-APR-2022 23:11, Atrial flutter has replaced Sinus rhythm Nonspecific T wave abnormality, worse in Inferior leads Referred By: Florencio Redd Electronically Signed By:MARCELA JO
[2022-04-03] MEDS: Lactated Ringers 1,000 ML 999 ML IV ×2 (00:22→22:50)
[2022-04-03] MEDS: Heparin Sodium,Porcine 5,000 UNIT/ML VIAL 4000 UNIT IVPUSH (01:29)
[2022-04-03 01:52] LABS: Partial Thromboplastin Time 31.4 SEC (26.0-36.4)
[2022-04-03 01:57] LABS: Troponin-I High Sensitivity 627.2 ng/L (<3.5-35.0)
[2022-04-03] MEDS: Heparin Sodium,Porcine/1/2NS 25,000 UNIT/250 ML IV.SOLN 15.24 UNIT IVCONT (02:47)
[2022-04-03 05:01] LABS: Hematocrit 36.7 % (42.0-52.0); Hemoglobin 12.1 g/dl (14.0-18.0); Mean Corpuscular Hemoglobin 26.8 pg (27.0-33.0); Mean Corpuscular Volume 81.2 fL (80.0-98.0); Mean Platelet Volume 9.6 fL (9.4-12.4); NRBC Pct Auto 0.2 /100WBC (0.0-0.2); Platelet Count 178 X10*3/uL (160-400); Red Blood Count 4.52 X10*6/uL (4.60-5.80); Red Cell Distribution Width 15.2 % (11.0-16.0); White Blood Count 12.1 X10*3/uL (4.8-10.8)
[2022-04-03 05:15] LABS: Anion Gap 18 (12-20); Blood Urea Nitrogen 50 mg/dL (9-16); Calcium 8.3 mg/dL (8.4-10.2); Carbon Dioxide 21 mmol/L (22-29); Chloride 101 mmol/L (96-108); Creatinine Clr Calc Pharmacy 60.2; Estimated Glomerular Filt Rate 43; Glucose Random 121 mg/dL (60-115); Sodium 136 mmol/L (135-145)
[2022-04-03 05:24] LABS: Band Neutrophils Percent 7 % (3-5); Lymphocytes Percent Manual 8 % (20-40); Metamyelocytes Absolute 0.1 X10*3/uL; Metamyelocytes Percent 1 %; Monocytes Absolute Manual 0.8 X10*3/uL (0.1-1.2); Monocytes Percent Manual 7 % (2-11); Neutrophils Absolute Manual 10.2 X10*3/uL (2.0-8.3); Neutrophils Percent Manual 77 % (45-73)
[2022-04-03 05:25] LABS: Dohle Bodies PRESENT; Platelet Estimate NORMAL (NORMAL); Platelet Morphology Comment NORMAL; RBC Morphology NORMAL; Toxic Granulation PRESENT
[2022-04-03] MEDS: Lactated Ringers 1,000 ML 100 ML IVCONT ×2 (06:08→15:19)
--- NOTE | 2022-04-03 06:33 | PM.IMHP ---
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 Patient reports that since then he has had constant worsening pain of his Right shoulder. his is also concerned that since last week he has become more forgetful, his family of noticed some change in his speech as he has difficulty finding words. He has also had unusual behavior like forgetting to take his medications although pain is shunt denies any of this, he is completely alert oriented to self place and time, he is able to give sore history, he tells me that he forgot his medications at work and that was the reason why he forget to take them, he also reports that he Noticed redness of his left lower extremity over the weekend. He denies having any numbness, tingling, or weakness in his arms or lower extremities. He reports no slurred speech, no change in vision or headache. He denies any chest pain at this time Or in previous days. he denies any fever or chills, no chest pain, no palpitations, no abdominal pain nausea or vomiting, no diarrhea constipation. On arrival to the ED patient was found to be hemodynamically stable no significant abnormal vitals Labs are significant for WBC count of 11.9, hemoglobin of 13.3, hematocrit 40.6, PT of 16, INR of 1.4, D-dimer 2079, sodium of 134, BUN of 55, creatinine of 1.90 with a baseline around 18 and 0.83 respectively, bili of 2.4, AST of 68, ALT of 71, troponin of 632 with a repeat of 627, BNP of 78, UA negative, EKG shows normal sinus rate with no significant ST T-wave elevation or depression, with ?possible CT Q-waves in V5 and V6 venous duplex of lower extremities also showed right occlusive thrombus within the femoral vein at the mid to distal aspect through the popliteal vein, on the left partially occlusive thrombus in the femoral vein chronic appearing. head CT also shows area of hypoattenuation with loss of robertson to white matter differentiation involving the right parietal lobe suggesting of an infarct of uncertain chronicity this could be acute/subacute Patient is started on heparin drip and will be admitted for further management Review of Systems Review of Systems: Yes all other systems are reviewed and are negative [facility] Medical History DVT (deep venous thrombosis) Hypertension Hypothyroidism Family History Mother No problems noted. Father No problems noted. 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 Meds Allergies Allergy/AdvReac Type Severity Reaction Status Date / Time No Known Allergies Allergy Verified 04/02/22 15:00 [No Known Allergies*] Active Medications: Current Medications Acetaminophen (Acetaminophen 325 Mg Tablet) 650 mg PO Q6H PRN PRN Reason: Pain, Mild (Pain Scale 1-3) Aspirin (Aspirin Enteric Coated 81 Mg Tablet.Dr) 81 mg PO DAILY [facility] Atorvastatin Calcium (Atorvastatin Calcium 80 Mg Tablet) 80 mg PO DAILY [facility] Docusate Sodium (Docusate Sodium 100 Mg Capsule) 100 mg PO DAILY PRN PRN Reason: Constipation Heparin Sodium (Porcine) (Heparin Sodium,Porcine 5,000 Unit/Ml Vial) 4,400 unit 40 unit/kg (4400 unit) IVPUSH PROTOCOL BOLUS PRN; Protocol PRN Reason: 40 unit/kg - Heparin Protocol Heparin Sodium (Porcine) (Heparin Sodium,Porcine 5,000 Unit/Ml Vial) 8,700 unit 80 unit/kg (8700 unit) IVPUSH PROTOCOL BOLUS PRN; Protocol PRN Reason: 80 unit/kg - Heparin Protocol Heparin Sodium/Sodium Chloride () 25,000 unit in 250 mls @ 0 mls/hr IVCONT .Q0M DAVID; Protocol Last Admin: 04/03/22 02:47 Dose: 14 units/kg/hr, 15.24 mls/hr Lactated Ringer's (Lr) 1,000 mls @ 100 mls/hr IVCONT .Q10H DAVID Last Admin: 04/03/22 06:08 Dose: 100 mls/hr Cefazolin Sodium/Dextrose (Ancef) 2 gm in 50 mls @ 100 mls/hr IV Q8H [facility] Ondansetron HCl (Ondansetron Hcl 4 Mg/2 Ml Vial) 4 mg IVPUSH Q8H PRN PRN Reason: Nausea and Vomiting Home Medications Medication Instructions Recorded Confirmed Last Taken Type apixaban 5 mg tablet (Eliquis) 1 tab PO BID 04/03/22 04/03/22 Unknown History levothyroxine 50 mcg tablet 1 tab PO DAILY 04/03/22 04/03/22 Unknown History lisinopril 20 1 tab PO DAILY 04/03/22 04/03/22 Unknown History mg-hydrochlorothiazide 25 mg tablet oxycodone-acetaminophen 5 mg-325 1 tab PO QID PRN Pain 04/03/22 04/03/22 Unknown History mg tablet Physical Exam Vital Signs and Narrative: Vital Signs: Last Vital Signs Temp 99.9 F 04/03/22 05:31 Pulse 96 04/03/22 05:31 Resp 18 04/03/22 05:31 BP 111/54 L 04/03/22 05:31 Pulse Ox 93 04/03/22 05:31 O2 Del Method 04/03/22 05:31 BMI result Body Mass Index 32.5 Const: General: cooperative and no acute distress Orientation/consciousness: patient oriented x3 Eyes: General: appearance normal, both eyes and all related structures Resp: Effort & Inspection: normal respiratory effort Auscultation: clear to auscultation bilaterally Cardio: Rate: regular rate Rhythm: regular rhythm GI: Palpation (GI): Soft to palpation Auscultation: normal bowel sounds Skin: General skin exam: no rashes or lesions noted Neuro: Other: patient has no neurological deficits, General: patient oriented x3 Cognition (Neuro): normal cognition Extrem: General: Yes normal to inspection and Yes no pedal edema Results Labs CBC and Chem 7: 04/03/22 04:35 04/03/22 04:35 Labs: Laboratory Results - last 24 hr 04/02/22 04/02/22 04/02/22 22:28 22:28 22:28 MCV 82.2 MCH 26.9 L MCHC 32.8 RDW 15.2 Plt Count 199 MPV 9.9 Immature Gran % (Auto) Cancelled Neut % (Auto) Cancelled Lymph % (Auto) Cancelled Collier % (Auto) Cancelled Eos % (Auto) Cancelled Baso % (Auto) Cancelled Lymph # (Auto) Cancelled Collier # (Auto) Cancelled Eos # (Auto) Cancelled Baso # (Auto) Cancelled Abs Immat Gran (auto) Cancelled Absolute Neuts (auto) Cancelled Absolute Nucleated RBC 0.020 H Nucleated RBC % (auto) 0.2 Neutrophils % (Manual) 62 Band Neutrophils % 2 L Lymphocytes % (Manual) 13 L Monocytes % (Manual) 16 H Eosinophils % (Manual) 1 Metamyelocytes % 5 Myelocytes % 1 Abs Neuts (Manual) 7.6 Lymphocytes # (Manual) 1.5 Monocytes # (Manual) 1.9 H Eosinophils # (Manual) 0.1 Metamyelocytes # 0.6 Myelocytes # 0.1 Toxic Granulation PRESENT Dohle Bodies PRESENT Platelet Estimate NORMAL Plt Morphology Comment NORMAL RBC Morphology NORMAL PT 16.0 H INR 1.4 H APTT D-Dimer High Sensitivty 2079 Anion Gap Estim Creat Clear Calc Estimated GFR Random Glucose Lactic Acid Calcium Magnesium Total Bilirubin AST ALT Alkaline Phosphatase Total Creatine Kinase B-Natriuretic Peptide Total Protein Albumin Urine Color Urine Appearance Urine pH Ur Specific [place] Urine Protein Urine Glucose (UA) Urine Ketones Urine Blood Urine Nitrite Ur Leukocyte Esterase Urine RBC Urine WBC Ur Squamous Epith Cells Amorphous Sediment Urine Bacteria Urine Mucus COVID-19 ([place]) Negative COVID-19 Clin Com See Note 04/02/22 04/02/22 04/02/22 22:28 22:28 22:28 MCV MCH MCHC RDW Plt Count MPV Immature Gran % (Auto) Neut % (Auto) Lymph % (Auto) Collier % (Auto) Eos % (Auto) Baso % (Auto) Lymph # (Auto) Collier # (Auto) Eos # (Auto) Baso # (Auto) Abs Immat Gran (auto) Absolute Neuts (auto) Absolute Nucleated RBC Nucleated RBC % (auto) Neutrophils % (Manual) Band Neutrophils % Lymphocytes % (Manual) Monocytes % (Manual) Eosinophils % (Manual) Metamyelocytes % Myelocytes % Abs Neuts (Manual) Lymphocytes # (Manual) Monocytes # (Manual) Eosinophils # (Manual) Metamyelocytes # Myelocytes # Toxic Granulation Dohle Bodies Platelet Estimate Plt Morphology Comment RBC Morphology PT 16.6 H INR 1.4 H APTT 31.4 D-Dimer High Sensitivty Anion Gap Estim Creat Clear Calc Estimated GFR Random Glucose Lactic Acid 1.7 Calcium Magnesium Total Bilirubin AST ALT Alkaline Phosphatase Total Creatine Kinase B-Natriuretic Peptide 78 Total Protein Albumin Urine Color Urine Appearance Urine pH Ur Specific [place] Urine Protein Urine Glucose (UA) Urine Ketones Urine Blood Urine Nitrite Ur Leukocyte Esterase Urine RBC Urine WBC Ur Squamous Epith Cells Amorphous Sediment Urine Bacteria Urine Mucus COVID-19 ([place]) COVID-19 Clin Com 04/02/22 04/02/22 04/02/22 22:28 22:46 23:31 MCV MCH MCHC RDW Plt Count MPV Immature Gran % (Auto) Neut % (Auto) Lymph % (Auto) Collier % (Auto) Eos % (Auto) Baso % (Auto) Lymph # (Auto) Collier # (Auto) Eos # (Auto) Baso # (Auto) Abs Immat Gran (auto) Absolute Neuts (auto) Absolute Nucleated RBC Nucleated RBC % (auto) Neutrophils % (Manual) Band Neutrophils % Lymphocytes % (Manual) Monocytes % (Manual) Eosinophils % (Manual) Metamyelocytes % Myelocytes % Abs Neuts (Manual) Lymphocytes # (Manual) Monocytes # (Manual) Eosinophils # (Manual) Metamyelocytes # Myelocytes # Toxic Granulation Dohle Bodies Platelet Estimate Plt Morphology Comment RBC Morphology PT INR APTT D-Dimer High Sensitivty Anion Gap 17 Estim Creat Clear Calc 51.3 Estimated GFR 36 Random Glucose 130 H Lactic Acid Calcium 8.6 D Magnesium Cancelled 1.7 Total Bilirubin 2.4 H AST 68 H ALT 71 H Alkaline Phosphatase 89 D Total Creatine Kinase 122 B-Natriuretic Peptide Total Protein 6.7 Albumin 3.3 L Urine Color YELLOW Urine Appearance CLEAR Urine pH 6.0 Ur Specific [place] 1.015 Urine Protein TRACE Urine Glucose (UA) NEG Urine Ketones NEG Urine Blood TRACE Urine Nitrite NEG Ur Leukocyte Esterase NEG Urine RBC 0 Urine WBC 0 Ur Squamous Epith Cells NONE Amorphous Sediment 1+ Urine Bacteria NONE Urine Mucus 1+ COVID-19 ([place]) COVID-19 Clin Com 04/03/22 04/03/22 04:35 04:35 MCV 81.2 MCH 26.8 L MCHC 33.0 RDW 15.2 Plt Count 178 MPV 9.6 Immature Gran % (Auto) Cancelled Neut % (Auto) Cancelled Lymph % (Auto) Cancelled Collier % (Auto) Cancelled Eos % (Auto) Cancelled Baso % (Auto) Cancelled Lymph # (Auto) Cancelled Collier # (Auto) Cancelled Eos # (Auto) Cancelled Baso # (Auto) Cancelled Abs Immat Gran (auto) Cancelled Absolute Neuts (auto) Cancelled Absolute Nucleated RBC 0.020 H Nucleated RBC % (auto) 0.2 Neutrophils % (Manual) 77 H Band Neutrophils % 7 H Lymphocytes % (Manual) 8 L Monocytes % (Manual) 7 Eosinophils % (Manual) Metamyelocytes % 1 Myelocytes % Abs Neuts (Manual) 10.2 H Lymphocytes # (Manual) 1.0 L Monocytes # (Manual) 0.8 Eosinophils # (Manual) Metamyelocytes # 0.1 Myelocytes # Toxic Granulation PRESENT Dohle Bodies PRESENT Platelet Estimate NORMAL Plt Morphology Comment NORMAL RBC Morphology NORMAL PT INR APTT D-Dimer High Sensitivty Anion Gap 18 Estim Creat Clear Calc 60.2 Estimated GFR 43 Random Glucose 121 H Lactic Acid Calcium 8.3 L Magnesium Total Bilirubin AST ALT Alkaline Phosphatase Total Creatine Kinase B-Natriuretic Peptide Total Protein Albumin Urine Color Urine Appearance Urine pH Ur Specific [place] Urine Protein Urine Glucose (UA) Urine Ketones Urine Blood Urine Nitrite Ur Leukocyte Esterase Urine RBC Urine WBC Ur Squamous Epith Cells Amorphous Sediment Urine Bacteria Urine Mucus COVID-19 ([place]) COVID-19 Clin Com Imaging Radiologist's Impressions: Impressions Venous Duplex 04/02/22 23:03 IMPRESSION: On the right, occlusive thrombus within the femoral vein at the mid to distal aspect through the popliteal vein. On the left, partially occlusive thrombus in the femoral vein, chronic appearing. This critical result was discussed with Merline Mock MD by telephone at 04/02/2022 11:24 PM and it was ascertained that the content and urgency of the report was understood at the time of direct communication. Head CT 04/03/22 00:10 IMPRESSION: No intracranial hemorrhage. Area of hypoattenuation with loss of robertson to white matter differentiation involving the right parietal lobe, suggestive of infarct of uncertain chronicity. This could be acute/subacute. No prior for comparison. Assessment and Plan (1) Cellulitis: Status: Acute (2) CVA (cerebral vascular accident): Qualifiers: CVA mechanism: unspecified Qualified Code(s): I63.9 - Cerebral infarction, unspecified Status: Acute (3) DVT (deep venous thrombosis): Status: Acute (4) Elevated troponin: Status: Acute (5) JACY (acute kidney injury): Status: Acute Plan 62-year-old male with past medical history of DVT bilaterally in 2020 presents to the hospital with right shoulder pain found to have multiple acute abnormalities as below # acute left lower extremity cellulitis - has warmth, erythema, edema, as well as tendon - some leukocytosis, afebrile - will treat with IV antibiotic - follow cultures # CVA - appears to have had 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 - no neurological deficits at this time - will obtain echo, bilateral arterial duplex of the carotid arteries - lipid battery - will start him on aspirin and high-dose statin - PT OT - neurology consulted # DVT - appears to have a new DVT of the right extremity - on chronic Eliquis but missed couple of doses this week - no respiratory symptoms at this time - started on heparin drip in the ED, will continue - monitor any respiratory changes - will obtain V/Q scan to rule out PE # elevated troponin - no chest pain, no EKG changes suggestive of ACS - cardiology consulted, echocardiogram ordere - does not have elevated BNP - monitor on telemetry # JACY - likely multifactorial secondary to above-mentioned reasons - IV fluids started - follow BMP # hypertension - stable - will hold his antihypertensive in the setting of JACY # hypothyroidism - continue levothyroxine DVT prophylaxis: Heparin subQ given the multiple complicated acute etiologies for admission, requirement for IV antibiotics, heparin subQ, has elevated troponin and as well as JACY requiring IV fluids,patient will require minimum 2 night hospital stay for further management and evaluation Quality Stroke Does the patient have a stroke diagnosis?: No VTE Prior VTE?: Yes VTE Risk Level:: Medical - moderate - high VTE Device Contraindication: Treatment Not Indicated VTE Drug Contraindication: N/A - Med Ordered
--- NOTE | 2022-04-03 07:00 | CA_ITS ---
Transthoracic Echocardiogram Patient (Last, First, Middle): David Pollock, Gender: Male Date of : 1960 Age: 62 Procedure Date: 04/03/2022 Procedure Type: Transthoracic Echocardiogram Location: [facility] [place] Height: 182.88 cm Weight: 140.61 kg BSA: 2.57 m2 Heart Rate: 101 bpm BP: 111 / 54 mmHg Deputy Sheriff Custody: SB Referring MD: Camden Root MD Symptoms: stroke, need Bubble Study Quality: TDS/Unable to do bubble study due to BSA ECG Rhythm: Tachycardia Conclusions: - LVEF difficult to assess in spite of contrast use. Probably > 50%. - Valves not well visualized. Findings Procedure Information Contrast agent, definity, is being given per protocol without apparent complications. Left Ventricle Normal left ventricular cavity size. Regional wall motion abnormalities can not be excluded due to suboptimal endocardial definition. Diastolic function is normal for age. There is severe septal asymmetric hypertrophy. LVEF difficult to assess in spite of contrast use. Probably > 50%. Right Ventricle The right ventricle was not well visualized. There is normal right ventricular systolic function. Atria The left atrium is normal in size. The right atrium was not well visualized. Aortic Valve The aortic valve was not well visualized. There is no aortic valve stenosis. There is no aortic valve regurgitation. Mitral Valve The mitral valve was not well visualized. Doubt any significant stenosis or regurgitation. Pulmonic Valve The pulmonic valve was not well visualized. Tricuspid Valve The tricuspid valve was not well visualized. There is no tricuspid valve regurgitation. Tricuspid regurgitation envelope is inadequate for calculation of right ventricular systolic pressure. Great Vessels The asc aorta is normal in size. Venous The inferior vena cava is mildly dilated and collapses less than 50% with inspiration. Pericardium/Pleural There is no evidence of pericardial effusion. Prior Study Comparison No prior study available for comparison. Recommendations, Care & Conclusions Consider a PETRA if clinically appropriate. Measurements 2D Linear Measurements IVSd: 1.66 0.6-0.9/0.6-1.0 cm LVIDd: 5.00 3.9-5.3/4.2-5.9 cm LVIDd Index: 2.17 2.4-3.2/2.2-3.1 cm/m2 LVIDs: 3.54 2.0-3.6 cm LVPWd: 0.92 0.7-1.1 cm LA Diam: 4.30 2.7-3.8/3.0-4.0 cm LAIDs Index: 1.87 1.5-2.3 cm/m2 LV Mass: 322.40 67-162/88-224 g LV Mass Index: 140.18 43-95/49-115 g/m2 LVOT Diam: 2.10 3.0+(-)1.3 cm 2D Systolic Function EF 4C: 71.60 >55% Mitral Valve MV Pk E: 1.03 MV PK A: 0.79 MV Decel Time: 137.00 E/A: 1.30 E'Lateral: 14.10 E'Medial: 8.27 E/E' Med: 12.50 E/E' Lat: 7.30 PHT: 40.00 MVA PHT: 5.50 Decel Sandoval: 7.53 Aortic Valve AoV Pk Jimmie: 1.56 AoV Mn Jimmie: 1.24 AoV VTI: 0.26 AoV Pk Grad: 10.00 Aov Mn Grad: 7.00 JULIANNA Cont.VTI: 3.38 LVOT LVOT Pk Jimmie: 1.41 LVOT Mn Jimmie: 1.09 LVOT VTI: 0.26 LVOT Pk Grad: 8.00 LVOT Mn Grad: 5.00 LVOT Diam: 2.10 LVOT Area: 3.46 Diastolic Function MV Pk E: 1.03 MV Pk A: 0.79 E/A: 1.30 E'Medial: 8.27 E/E' Med: 12.50 E' Laterial: 14.10 E/E' Lat: 7.30 Right Ventricle TAPSE (mm): 29.30 TVS' Jimmie: 20.50 Tricuspid Valve RA Press: 15.00 Great Vessels Aorta Sinus of Valsalva: 3.70 2.0-3.5 cm Ao Asc: 3.80 2.1-3.4 cm Updated in Other Vendor System with Status of Final Caleb Macias MD electronically signed on 04/03/2022 12:12:30 PM with status of Final
[2022-04-03] MEDS: ceFAZolin Sodium/Dextrose,Iso 2 GM/50 ML PIGGYBACK IV ×2 (07:34→15:15)
[2022-04-03] MEDS: Atorvastatin Calcium 80 MG TABLET PO (07:34)
[2022-04-03] MEDS: Levothyroxine Sodium 50 MCG TABLET PO (07:34)
[2022-04-03] MEDS: Aspirin Enteric Coated 81 MG TABLET.DR PO (07:34)
--- NOTE | 2022-04-03 08:27 | PHA.MEDREC ---
Pharmacy Consult ? Medication Reconciliation Pharmacy has reviewed the medication reconciliation completed by Kiera. Patient also filled PRN methocarbamol which I added to list. Lindsay Gallardo, RadhaD
[2022-04-03 08:30] LABS: PTT Heparin Drip 34.1 SEC (53-77.9)
[2022-04-03] MEDS: Heparin Sodium,Porcine 5,000 UNIT/ML VIAL 8700 UNIT IVPUSH (08:49)
--- NOTE | 2022-04-03 09:12 | P.CONCA_ITS ---
History of Present Illness History of Present Illness Date of Service: 04/03/22 Chief complaint: dvt, cellulitis, stroke Narrative: This is a cardiology consultation regarding elevated troponins. Patient has a history of prior DVTs, hypertension, hypothyroidism, arthritis. It seems that he initially came because of right shoulder pain that happen because of fall on the 26 of February. Apparently, since last few days he has also been more forgetful. Then some redness in the left lower extremity over the weekend. In this context, troponins were checked and they were elevated and hence we have been asked to see him. Patient himself denies any complaints like chest pain or shortness of breath or in fact anything cardiac related at all. He also denies any previous history of coronary artery disease or myocardial infarction or cardiomyopathy. He states that he is otherwise fully function without any major limitations. Review of Systems Review of Systems: Yes all other systems are reviewed and are negative Constitutional: Constitutional: Reports as per HPI Eyes: Eyes: Reports as per HPI ENT: Reports as per HPI Cardiovascular: Cardiovascular: Reports as per HPI, Denies acrocyanosis, Denies cool extremities, Denies chest pain, Denies leg edema, Denies lightheadedness, Denies palpitations and Denies dyspnea Respiratory: Respiratory: Reports as per HPI, Reports no additional respiratory complaints and Denies dyspnea Gastrointestinal: Gastrointestinal: Reports as per HPI and Reports no addit ional gastrointestinal complaints Genitourinary: Genitourinary: Reports no additional male genitourinary complaints and Reports as per HPI Musculoskeletal: Musculoskeletal: Reports no additional musculoskeletal complaints and Reports as per HPI Integumentary/Breasts: Skin/Breast: Reports system reviewed and no additional complaints, except as docu Neurologic: Reports system reviewed and no additional complaints, except as documented and Reports as per HPI Psychiatric: Psychiatric: Reports no additional psychiatric complaints and Reports as per HPI Endocrine: Endocrine: Reports no additional endocrine complaints, Reports as per HPI and Denies palpitations Hematologic/Lymphatic: Hematologic/Lymphatic: Reports no additional hematologic/lymphatic complaints and Reports as per HPI Allergic/Immunologic: Allergic/Immunologic: Reports no additional allergic/immunologic complaints and Reports as per HPI [facility] Past Medical History Medical History DVT (deep venous thrombosis) Hypertension Hypothyroidism Family History Family History (Updated 04/03/22 @ 09:14 by Caleb Macias MD) Mother No problems noted. Father Coronary artery disease Surgical History Surgical History History of total right hip replacement (~05/23/20) Social History Social History Household Members: Spouse Housing: Apartment Do you presently have visiting nurse or other home services: No Alcohol intake: current Alcohol intake frequency: holidays/special occasions only Patient Tobacco Use Status: Never used Tobacco Use of substances other than those prescribed or required for medical reasons: No Currently Displaying Signs/Symptoms of Drug Intoxication Withdrawal: No Any prior treatment program specific to substance use: No Have you been hit, kicked, punched, or otherwise hurt by someone within the past year? 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 Meds Allergies Allergy/AdvReac Type Severity Reaction Status Date / Time No Known Allergies Allergy Verified 04/02/22 15:00 [No Known Allergies*] Active Medications: Current Medications Acetaminophen (Acetaminophen 325 Mg Tablet) 650 mg PO Q6H PRN PRN Reason: Pain, Mild (Pain Scale 1-3) Aspirin (Aspirin Enteric Coated 81 Mg Tablet.) 81 mg PO DAILY [facility] Last Admin: 04/03/22 07:34 Dose: 81 mg Atorvastatin Calcium (Atorvastatin Calcium 80 Mg Tablet) 80 mg PO DAILY [facility] Last Admin: 04/03/22 07:34 Dose: 80 mg Docusate Sodium (Docusate Sodium 100 Mg Capsule) 100 mg PO DAILY PRN PRN Reason: Constipation Heparin Sodium (Porcine) (Heparin Sodium,Porcine 5,000 Unit/Ml Vial) 4,400 unit 40 unit/kg (4400 unit) IVPUSH PROTOCOL BOLUS PRN; Protocol PRN Reason: 40 unit/kg - Heparin Protocol Heparin Sodium (Porcine) (Heparin Sodium,Porcine 5,000 Unit/Ml Vial) 8,700 unit 80 unit/kg (8700 unit) IVPUSH PROTOCOL BOLUS PRN; Protocol PRN Reason: 80 unit/kg - Heparin Protocol Last Admin: 04/03/22 08:49 Dose: 8,700 unit Heparin Sodium/Sodium Chloride () 25,000 unit in 250 mls @ 0 mls/hr IVCONT .Q0M DAVID; Protocol Last Titration: 04/03/22 08:50 Dose: 18 units/kg/hr, 19.6 mls/hr Lactated Ringer's (Lr) 1,000 mls @ 100 mls/hr IVCONT .Q10H DAVID Last Admin: 04/03/22 06:08 Dose: 100 mls/hr Cefazolin Sodium/Dextrose (Ancef) 2 gm in 50 mls @ 100 mls/hr IV Q8H [facility] Last Infusion: 04/03/22 08:27 Dose: Infused Levothyroxine Sodium (Levothyroxine Sodium 50 Mcg Tablet) 50 mcg PO DAILY@0600 [facility] Last Admin: 04/03/22 07:34 Dose: 50 mcg Ondansetron HCl (Ondansetron Hcl 4 Mg/2 Ml Vial) 4 mg IVPUSH Q8H PRN PRN Reason: Nausea and Vomiting Oxycodone HCl (Oxycodone Hcl Immed Release 5 Mg Tablet) 5 mg PO QID PRN PRN Reason: Pain, Moderate (Pain Scale 4-6 Home Medications Medication Instructions Recorded Confirmed Last Taken Type apixaban 5 mg tablet (Eliquis) 1 tab PO BID 04/03/22 04/03/22 Unknown History levothyroxine 50 mcg tablet 1 tab PO DAILY 04/03/22 04/03/22 Unknown History lisinopril 20 1 tab PO DAILY 04/03/22 04/03/22 Unknown History mg-hydrochlorothiazide 25 mg tablet methocarbamol 750 mg tablet 1 tab PO Q6H PRN muscle spasm 04/03/22 04/03/22 Unknown History oxycodone-acetaminophen 5 mg-325 1 tab PO QID PRN Pain 04/03/22 04/03/22 Unknown History mg tablet Physical Exam Vital Signs: Vital Signs: Last Vital Signs Temp 99.5 F 04/03/22 07:41 Pulse 101 H 04/03/22 08:55 Resp 20 04/03/22 07:41 BP 119/57 L 04/03/22 08:55 Pulse Ox 92 04/03/22 08:55 O2 Del Method 04/03/22 07:41 BMI result Body Mass Index 32.5 Const: General: comfortable and no acute distress Orientation/consciousness: patient oriented x3 HEENT: Other: Unremarkable Head: Yes normal to inspection Neck: Neck: Yes normal visual inspection Chest: Chest palpation & inspection: normal inspection of the chest Resp: Auscultation: clear to auscultation bilaterally Cardio: Palpation: normal PMI Heart sounds: S1 normal heart sound present, S2 normal heart sound present, no gallops, no murmurs and no rubs GI: Palpation (GI): Soft to palpation Back/Spine/Pelvis: Other: unremarkable Skin: General skin exam: no rashes or lesions noted Neuro: General: patient oriented x3 Extrem: Other: 2-3+ edema; left leg redness Psych: Mental Status: mental status grossly normal Objective Labs and Meds Result diagrams: 04/03/22 04:35 04/03/22 04:35 Lab results: Laboratory Results - last 24 hr 04/02/22 04/02/22 04/02/22 22:28 22:28 22:28 WBC 11.9 H RBC 4.94 Hgb 13.3 L Hct 40.6 L MCV 82.2 MCH 26.9 L MCHC 32.8 RDW 15.2 Plt Count 199 MPV 9.9 Immature Gran % (Auto) Cancelled Neut % (Auto) Cancelled Lymph % (Auto) Cancelled [place] % (Auto) Cancelled Eos % (Auto) Cancelled Baso % (Auto) Cancelled Lymph # (Auto) Cancelled [place] # (Auto) Cancelled Eos # (Auto) Cancelled Baso # (Auto) Cancelled Abs Immat Gran (auto) Cancelled Absolute Neuts (auto) Cancelled Absolute Nucleated RBC 0.020 H Nucleated RBC % (auto) 0.2 Neutrophils % (Manual) 62 Band Neutrophils % 2 L Lymphocytes % (Manual) 13 L Monocytes % (Manual) 16 H Eosinophils % (Manual) 1 Metamyelocytes % 5 Myelocytes % 1 Abs Neuts (Manual) 7.6 Lymphocytes # (Manual) 1.5 Monocytes # (Manual) 1.9 H Eosinophils # (Manual) 0.1 Metamyelocytes # 0.6 Myelocytes # 0.1 Toxic Granulation PRESENT Dohle Bodies PRESENT Platelet Estimate NORMAL Plt Morphology Comment NORMAL RBC Morphology NORMAL PT 16.0 H INR 1.4 H APTT aPTT Heparin Protocol D-Dimer High Sensitivty 2079 Sodium Potassium Chloride Carbon Dioxide Anion Gap BUN Creatinine Estim Creat Clear Calc Estimated GFR Random Glucose Lactic Acid Calcium Magnesium Total Bilirubin AST ALT Alkaline Phosphatase Total Creatine Kinase Troponin I High Sens 632.5 H* B-Natriuretic Peptide Total Protein Albumin Urine Color Urine Appearance Urine pH Ur Specific [place] Urine Protein Urine Glucose (UA) Urine Ketones Urine Blood Urine Nitrite Ur Leukocyte Esterase Urine RBC Urine WBC Ur Squamous Epith Cells Amorphous Sediment Urine Bacteria Urine Mucus COVID-19 ([place]) COVID-19 Clin Com 04/02/22 04/02/22 04/02/22 22:28 22:28 22:28 WBC RBC Hgb Hct MCV MCH MCHC RDW Plt Count MPV Immature Gran % (Auto) Neut % (Auto) Lymph % (Auto) [place] % (Auto) Eos % (Auto) Baso % (Auto) Lymph # (Auto) [place] # (Auto) Eos # (Auto) Baso # (Auto) Abs Immat Gran (auto) Absolute Neuts (auto) Absolute Nucleated RBC Nucleated RBC % (auto) Neutrophils % (Manual) Band Neutrophils % Lymphocytes % (Manual) Monocytes % (Manual) Eosinophils % (Manual) Metamyelocytes % Myelocytes % Abs Neuts (Manual) Lymphocytes # (Manual) Monocytes # (Manual) Eosinophils # (Manual) Metamyelocytes # Myelocytes # Toxic Granulation Dohle Bodies Platelet Estimate Plt Morphology Comment RBC Morphology PT 16.6 H INR 1.4 H APTT 31.4 aPTT Heparin Protocol D-Dimer High Sensitivty Sodium Potassium Chloride Carbon Dioxide Anion Gap BUN Creatinine Estim Creat Clear Calc Estimated GFR Random Glucose Lactic Acid Calcium Magnesium Total Bilirubin AST ALT Alkaline Phosphatase Total Creatine Kinase Troponin I High Sens B-Natriuretic Peptide 78 Total Protein Albumin Urine Color Urine Appearance Urine pH Ur Specific [place] Urine Protein Urine Glucose (UA) Urine Ketones Urine Blood Urine Nitrite Ur Leukocyte Esterase Urine RBC Urine WBC Ur Squamous Epith Cells Amorphous Sediment Urine Bacteria Urine Mucus COVID-19 ([place]) Negative COVID-19 [facility] Com See Note 04/02/22 04/02/22 04/02/22 22:28 22:28 22:46 WBC RBC Hgb Hct MCV MCH MCHC RDW Plt Count MPV Immature Gran % (Auto) Neut % (Auto) Lymph % (Auto) [place] % (Auto) Eos % (Auto) Baso % (Auto) Lymph # (Auto) [place] # (Auto) Eos # (Auto) Baso # (Auto) Abs Immat Gran (auto) Absolute Neuts (auto) Absolute Nucleated RBC Nucleated RBC % (auto) Neutrophils % (Manual) Band Neutrophils % Lymphocytes % (Manual) Monocytes % (Manual) Eosinophils % (Manual) Metamyelocytes % Myelocytes % Abs Neuts (Manual) Lymphocytes # (Manual) Monocytes # (Manual) Eosinophils # (Manual) Metamyelocytes # Myelocytes # Toxic Granulation Dohle Bodies Platelet Estimate Plt Morphology Comment RBC Morphology PT INR APTT aPTT Heparin Protocol D-Dimer High Sensitivty Sodium Potassium Chloride Carbon Dioxide Anion Gap BUN Creatinine Estim Creat Clear Calc Estimated GFR Random Glucose Lactic Acid 1.7 Calcium Magnesium Cancelled Total Bilirubin AST ALT Alkaline Phosphatase Total Creatine Kinase Troponin I High Sens B-Natriuretic Peptide Total Protein Albumin Urine Color YELLOW Urine Appearance CLEAR Urine pH 6.0 Ur Specific [place] 1.015 Urine Protein TRACE Urine Glucose (UA) NEG Urine Ketones NEG Urine Blood TRACE Urine Nitrite NEG Ur Leukocyte Esterase NEG Urine RBC 0 Urine WBC 0 Ur Squamous Epith Cells NONE Amorphous Sediment 1+ Urine Bacteria NONE Urine Mucus 1+ COVID-19 ([place]) COVID-19 Clin Com 04/02/22 04/03/22 04/03/22 23:31 01:20 04:35 WBC 12.1 H RBC 4.52 L Hgb 12.1 L Hct 36.7 L MCV 81.2 MCH 26.8 L MCHC 33.0 RDW 15.2 Plt Count 178 MPV 9.6 Immature Gran % (Auto) Cancelled Neut % (Auto) Cancelled Lymph % (Auto) Cancelled [place] % (Auto) Cancelled Eos % (Auto) Cancelled Baso % (Auto) Cancelled Lymph # (Auto) Cancelled [place] # (Auto) Cancelled Eos # (Auto) Cancelled Baso # (Auto) Cancelled Abs Immat Gran (auto) Cancelled Absolute Neuts (auto) Cancelled Absolute Nucleated RBC 0.020 H Nucleated RBC % (auto) 0.2 Neutrophils % (Manual) 77 H Band Neutrophils % 7 H Lymphocytes % (Manual) 8 L Monocytes % (Manual) 7 Eosinophils % (Manual) Metamyelocytes % 1 Myelocytes % Abs Neuts (Manual) 10.2 H Lymphocytes # (Manual) 1.0 L Monocytes # (Manual) 0.8 Eosinophils # (Manual) Metamyelocytes # 0.1 Myelocytes # Toxic Granulation PRESENT Dohle Bodies PRESENT Platelet Estimate NORMAL Plt Morphology Comment NORMAL RBC Morphology NORMAL PT INR APTT aPTT Heparin Protocol D-Dimer High Sensitivty Sodium 134 L Potassium 3.9 Chloride 98 Carbon Dioxide 23 Anion Gap 17 BUN 55 H Creatinine 1.90 H Estim Creat Clear Calc 51.3 Estimated GFR 36 Random Glucose 130 H Lactic Acid Calcium 8.6 D Magnesium 1.7 Total Bilirubin 2.4 H AST 68 H ALT 71 H Alkaline Phosphatase 89 D Total Creatine Kinase 122 Troponin I High Sens 627.2 H* B-Natriuretic Peptide Total Protein 6.7 Albumin 3.3 L Urine Color Urine Appearance Urine pH Ur Specific [place] Urine Protein Urine Glucose (UA) Urine Ketones Urine Blood Urine Nitrite Ur Leukocyte Esterase Urine RBC Urine WBC Ur Squamous Epith Cells Amorphous Sediment Urine Bacteria Urine Mucus COVID-19 ([place]) COVID-19 Clin Com 04/03/22 04/03/22 04:35 08:12 WBC RBC Hgb Hct MCV MCH MCHC RDW Plt Count MPV Immature Gran % (Auto) Neut % (Auto) Lymph % (Auto) [place] % (Auto) Eos % (Auto) Baso % (Auto) Lymph # (Auto) [place] # (Auto) Eos # (Auto) Baso # (Auto) Abs Immat Gran (auto) Absolute Neuts (auto) Absolute Nucleated RBC Nucleated RBC % (auto) Neutrophils % (Manual) Band Neutrophils % Lymphocytes % (Manual) Monocytes % (Manual) Eosinophils % (Manual) Metamyelocytes % Myelocytes % Abs Neuts (Manual) Lymphocytes # (Manual) Monocytes # (Manual) Eosinophils # (Manual) Metamyelocytes # Myelocytes # Toxic Granulation Dohle Bodies Platelet Estimate Plt Morphology Comment RBC Morphology PT INR APTT aPTT Heparin Protocol 34.1 L D-Dimer High Sensitivty Sodium 136 Potassium 4.0 Chloride 101 Carbon Dioxide 21 L Anion Gap 18 BUN 50 H Creatinine 1.62 H Estim Creat Clear Calc 60.2 Estimated GFR 43 Random Glucose 121 H Lactic Acid Calcium 8.3 L Magnesium Total Bilirubin AST ALT Alkaline Phosphatase Total Creatine Kinase Troponin I High Sens B-Natriuretic Peptide Total Protein Albumin Urine Color Urine Appearance Urine pH Ur Specific [place] Urine Protein Urine Glucose (UA) Urine Ketones Urine Blood Urine Nitrite Ur Leukocyte Esterase Urine RBC Urine WBC Ur Squamous Epith Cells Amorphous Sediment Urine Bacteria Urine Mucus COVID-19 ([place]) COVID-19 Clin Com ECG Interpretation: EKG with sinus rhythm at 92/Min; cannot exclude old lateral infarct but otherwise unremarkable. Imaging Radiologist's impression: Impressions Venous Duplex 04/02/22 23:03 IMPRESSION: On the right, occlusive thrombus within the femoral vein at the mid to distal aspect through the popliteal vein. On the left, partially occlusive thrombus in the femoral vein, chronic appearing. This critical result was discussed with Merline Mock MD by telephone at 04/02/2022 11:24 PM and it was ascertained that the content and urgency of the report was understood at the time of direct communication. Head CT 04/03/22 00:10 IMPRESSION: No intracranial hemorrhage. Area of hypoattenuation with loss of robertson to white matter differentiation involving the right parietal lobe, suggestive of infarct of uncertain chronicity. This could be acute/subacute. No prior for comparison. Assessment and Plan (1) NSTEMI (non-ST elevated myocardial infarction): Status: Acute Plan Available data reviewed. High sensitivity troponins are 632 followed by 627. Cardiac BNP is 78. Albumin is 3.3. LFTs slightly abnormal. Elevated BUN creatinine. Head CT reported to have right parietal lobe infarct of uncertain chronicity- acute versus subacute. Lower extremity venous [id number] occlusive thrombus within the femoral vein. Left-sided partially occlusive thrombus in the femoral vein, chronic appearing. Overall, demand related troponin leak; stroke of undetermined origin; DVTs. Agree with IV heparin use at this time. Consider Hematology consult regarding the DVTs and further management. With regard to NSTEMI standpoint, we will get an echocardiogram for cardiac function assessment as well as wall motion assessment. Will eventually need some form of ischemic evaluation. This will have to be done once the acute issues are stabilized. With regard to the stroke itself, consider neurology evaluation. Will follow up with you. Discussed with Dr. Redd. Procedures Date of Service Date of Service: 04/03/22
--- NOTE | 2022-04-03 10:04 | HO.PM.IMPN ---
Subjective Subjective Date of Service: 04/03/22 Interval History: cc: ams, left leg swelling and erythema interval history: more alert, but still tired, leg pain Cardiovascular Cardiovascular: Reports no additional cardiovascular complaints Respiratory Respiratory: Reports no additional respiratory complaints Physical Exam Vital Signs: Vital Signs: Last Vital Signs Temp 99.5 F 04/03/22 07:41 Pulse 101 H 04/03/22 08:55 Resp 20 04/03/22 07:41 BP 119/57 L 04/03/22 08:55 Pulse Ox 92 04/03/22 08:55 O2 Del Method 04/03/22 07:41 BMI result Body Mass Index 32.5 General: lethargic O X 3, no acute distress Resp: CTA bilateral, no accessory muscles used CVS: S1,S2,RRR, 2+ bialteral edema GI: soft, non tender, non distended Neuro: motor grossly intact, alert Psych: appropriate affect, appropriate insight skin: LLE erythema, warmth Objective Data Active Medications Acetaminophen (Acetaminophen 325 Mg Tablet) 650 mg PO Q6H PRN PRN Reason: Pain, Mild (Pain Scale 1-3) Aspirin (Aspirin Enteric Coated 81 Mg Tablet.) 81 mg PO DAILY [facility] Last Admin: 04/03/22 07:34 Dose: 81 mg Documented By: KAMAR Atorvastatin Calcium (Atorvastatin Calcium 80 Mg Tablet) 80 mg PO DAILY [facility] Last Admin: 04/03/22 07:34 Dose: 80 mg Documented By: KAMAR Docusate Sodium (Docusate Sodium 100 Mg Capsule) 100 mg PO DAILY PRN PRN Reason: Constipation Heparin Sodium (Porcine) (Heparin Sodium,Porcine 5,000 Unit/Ml Vial) 4,400 unit 40 unit/kg (4400 unit) IVPUSH PROTOCOL BOLUS PRN; Protocol PRN Reason: 40 unit/kg - Heparin Protocol Heparin Sodium (Porcine) (Heparin Sodium,Porcine 5,000 Unit/Ml Vial) 8,700 unit 80 unit/kg (8700 unit) IVPUSH PROTOCOL BOLUS PRN; Protocol PRN Reason: 80 unit/kg - Heparin Protocol Last Admin: 04/03/22 08:49 Dose: 8,700 unit Documented By: KAMAR Heparin Sodium/Sodium Chloride () 25,000 unit in 250 mls @ 0 mls/hr IVCONT .Q0M [facility]; Protocol Last Titration: 04/03/22 08:50 Dose: 18 units/kg/hr, 19.6 mls/hr Documented By: KAMAR Co-signed By: ESPERANZA Lactated Ringer's (Lr) 1,000 mls @ 100 mls/hr IVCONT .Q10H [facility] Last Admin: 04/03/22 06:08 Dose: 100 mls/hr Documented By: CALVIN Cefazolin Sodium/Dextrose (Ancef) 2 gm in 50 mls @ 100 mls/hr IV Q8H [facility] Last Infusion: 04/03/22 08:27 Dose: 0 mls/hr Documented By: ESPERANZA Vancomycin HCl 1,000 mg/ (Sodium Chloride) 270 mls @ 270 mls/hr IV Q24H [facility] Levothyroxine Sodium (Levothyroxine Sodium 50 Mcg Tablet) 50 mcg PO DAILY@0600 [facility] Last Admin: 04/03/22 07:34 Dose: 50 mcg Documented By: KAMAR Ondansetron HCl (Ondansetron Hcl 4 Mg/2 Ml Vial) 4 mg IVPUSH Q8H PRN PRN Reason: Nausea and Vomiting Oxycodone HCl (Oxycodone Hcl Immed Release 5 Mg Tablet) 5 mg PO QID PRN PRN Reason: Pain, Moderate (Pain Scale 4-6 Pharmacy Consult (Consult Rx Vancomycin Dosing) 1 each MISCELLANE DAILY PRN PRN Reason: Consult order Labs CBC & Chem 7: 04/03/22 04:35 04/03/22 04:35 Labs: Laboratory Results - last 24 hr 04/02/22 04/02/22 04/02/22 22:28 22:28 22:28 MCV 82.2 MCH 26.9 L MCHC 32.8 RDW 15.2 Plt Count 199 MPV 9.9 Immature Gran % (Auto) Cancelled Neut % (Auto) Cancelled Lymph % (Auto) Cancelled [facility] % (Auto) Cancelled Eos % (Auto) Cancelled Baso % (Auto) Cancelled Lymph # (Auto) Cancelled [facility] # (Auto) Cancelled Eos # (Auto) Cancelled Baso # (Auto) Cancelled Abs Immat Gran (auto) Cancelled Absolute Neuts (auto) Cancelled Absolute Nucleated RBC 0.020 H Nucleated RBC % (auto) 0.2 Neutrophils % (Manual) 62 Band Neutrophils % 2 L Lymphocytes % (Manual) 13 L Monocytes % (Manual) 16 H Eosinophils % (Manual) 1 Metamyelocytes % 5 Myelocytes % 1 Abs Neuts (Manual) 7.6 Lymphocytes # (Manual) 1.5 Monocytes # (Manual) 1.9 H Eosinophils # (Manual) 0.1 Metamyelocytes # 0.6 Myelocytes # 0.1 Toxic Granulation PRESENT Dohle Bodies PRESENT Platelet Estimate NORMAL Plt Morphology Comment NORMAL RBC Morphology NORMAL PT 16.0 H INR 1.4 H APTT aPTT Heparin Protocol D-Dimer High Sensitivty 2079 Anion Gap Estim Creat Clear Calc Estimated GFR Random Glucose Lactic Acid Calcium Magnesium Total Bilirubin AST ALT Alkaline Phosphatase Total Creatine Kinase B-Natriuretic Peptide Total Protein Albumin Urine Color Urine Appearance Urine pH Ur Specific [place] Urine Protein Urine Glucose (UA) Urine Ketones Urine Blood Urine Nitrite Ur Leukocyte Esterase Urine RBC Urine WBC Ur Squamous Epith Cells Amorphous Sediment Urine Bacteria Urine Mucus COVID-19 ([place]) Negative COVID-19 Clin Com See Note 04/02/22 04/02/22 04/02/22 22:28 22:28 22:28 MCV MCH MCHC RDW Plt Count MPV Immature Gran % (Auto) Neut % (Auto) Lymph % (Auto) [facility] % (Auto) Eos % (Auto) Baso % (Auto) Lymph # (Auto) [facility] # (Auto) Eos # (Auto) Baso # (Auto) Abs Immat Gran (auto) Absolute Neuts (auto) Absolute Nucleated RBC Nucleated RBC % (auto) Neutrophils % (Manual) Band Neutrophils % Lymphocytes % (Manual) Monocytes % (Manual) Eosinophils % (Manual) Metamyelocytes % Myelocytes % Abs Neuts (Manual) Lymphocytes # (Manual) Monocytes # (Manual) Eosinophils # (Manual) Metamyelocytes # Myelocytes # Toxic Granulation Dohle Bodies Platelet Estimate Plt Morphology Comment RBC Morphology PT 16.6 H INR 1.4 H APTT 31.4 aPTT Heparin Protocol D-Dimer High Sensitivty Anion Gap Estim Creat Clear Calc Estimated GFR Random Glucose Lactic Acid 1.7 Calcium Magnesium Total Bilirubin AST ALT Alkaline Phosphatase Total Creatine Kinase B-Natriuretic Peptide 78 Total Protein Albumin Urine Color Urine Appearance Urine pH Ur Specific [place] Urine Protein Urine Glucose (UA) Urine Ketones Urine Blood Urine Nitrite Ur Leukocyte Esterase Urine RBC Urine WBC Ur Squamous Epith Cells Amorphous Sediment Urine Bacteria Urine Mucus COVID-19 ([place]) COVID-19 Clin Com 04/02/22 04/02/22 04/02/22 22:28 22:46 23:31 MCV MCH MCHC RDW Plt Count MPV Immature Gran % (Auto) Neut % (Auto) Lymph % (Auto) [facility] % (Auto) Eos % (Auto) Baso % (Auto) Lymph # (Auto) [facility] # (Auto) Eos # (Auto) Baso # (Auto) Abs Immat Gran (auto) Absolute Neuts (auto) Absolute Nucleated RBC Nucleated RBC % (auto) Neutrophils % (Manual) Band Neutrophils % Lymphocytes % (Manual) Monocytes % (Manual) Eosinophils % (Manual) Metamyelocytes % Myelocytes % Abs Neuts (Manual) Lymphocytes # (Manual) Monocytes # (Manual) Eosinophils # (Manual) Metamyelocytes # Myelocytes # Toxic Granulation Dohle Bodies Platelet Estimate Plt Morphology Comment RBC Morphology PT INR APTT aPTT Heparin Protocol D-Dimer High Sensitivty Anion Gap 17 Estim Creat Clear Calc 51.3 Estimated GFR 36 Random Glucose 130 H Lactic Acid Calcium 8.6 D Magnesium Cancelled 1.7 Total Bilirubin 2.4 H AST 68 H ALT 71 H Alkaline Phosphatase 89 D Total Creatine Kinase 122 B-Natriuretic Peptide Total Protein 6.7 Albumin 3.3 L Urine Color YELLOW Urine Appearance CLEAR Urine pH 6.0 Ur Specific [place] 1.015 Urine Protein TRACE Urine Glucose (UA) NEG Urine Ketones NEG Urine Blood TRACE Urine Nitrite NEG Ur Leukocyte Esterase NEG Urine RBC 0 Urine WBC 0 Ur Squamous Epith Cells NONE Amorphous Sediment 1+ Urine Bacteria NONE Urine Mucus 1+ COVID-19 ([place]) COVID-19 Clin Com 04/03/22 04/03/22 04/03/22 04:35 04:35 08:12 MCV 81.2 MCH 26.8 L MCHC 33.0 RDW 15.2 Plt Count 178 MPV 9.6 Immature Gran % (Auto) Cancelled Neut % (Auto) Cancelled Lymph % (Auto) Cancelled [facility] % (Auto) Cancelled Eos % (Auto) Cancelled Baso % (Auto) Cancelled Lymph # (Auto) Cancelled [facility] # (Auto) Cancelled Eos # (Auto) Cancelled Baso # (Auto) Cancelled Abs Immat Gran (auto) Cancelled Absolute Neuts (auto) Cancelled Absolute Nucleated RBC 0.020 H Nucleated RBC % (auto) 0.2 Neutrophils % (Manual) 77 H Band Neutrophils % 7 H Lymphocytes % (Manual) 8 L Monocytes % (Manual) 7 Eosinophils % (Manual) Metamyelocytes % 1 Myelocytes % Abs Neuts (Manual) 10.2 H Lymphocytes # (Manual) 1.0 L Monocytes # (Manual) 0.8 Eosinophils # (Manual) Metamyelocytes # 0.1 Myelocytes # Toxic Granulation PRESENT Dohle Bodies PRESENT Platelet Estimate NORMAL Plt Morphology Comment NORMAL RBC Morphology NORMAL PT INR APTT aPTT Heparin Protocol 34.1 L D-Dimer High Sensitivty Anion Gap 18 Estim Creat Clear Calc 60.2 Estimated GFR 43 Random Glucose 121 H Lactic Acid Calcium 8.3 L Magnesium Total Bilirubin AST ALT Alkaline Phosphatase Total Creatine Kinase B-Natriuretic Peptide Total Protein Albumin Urine Color Urine Appearance Urine pH Ur Specific [place] Urine Protein Urine Glucose (UA) Urine Ketones Urine Blood Urine Nitrite Ur Leukocyte Esterase Urine RBC Urine WBC Ur Squamous Epith Cells Amorphous Sediment Urine Bacteria Urine Mucus COVID-19 ([place]) COVID-19 Clin Com Microbiology Microbiology Results: Microbiology 04/02/22 22:28 Blood Culture - Preliminary Blood - Venous Prelim: GPC Gram Stain only 04/02/22 22:28 Blood Culture - Preliminary Blood - Venous Prelim: GPC Gram Stain only Assessment and Plan (1) Cellulitis: Status: Acute Plan 62M with PMH bilateral DVT in 2020, morbid obesity, HTN, hypothryoid, presented with confusion, lle erythema after stopping eliquis metabolic encephalopathy with questionable subacute CVA on CT head neuro eval given bactremia will check mri with and without contrast carotid doppler PT/OT JACY improved with hydration, holding charli-i 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 continue heparin infusion for now (incase interventions needed during hospitalizations) GPC bacteremia, LLE cellulitis continue ancef added vanc until sensitivities follow up repeat check echo - concern for endocarditis being underlying cause for presentation ID eval elevated lfts monitor, check abd us elevated troponin doubt ACS, likely cardiac strain, check echo cardiology to see morbid obesity weight loss recommended, outpatient EMIGDIO screening HTN holding hctz and charli-i for jacy, monitor for now hypothyroid synthroid full code reason for continued hospitalization:iv abx for bacteremia, ongoing investigation for cth finding, lfts, elevated troponins, ivf for jacy Quality Stroke Does the patient have a stroke diagnosis?: No VTE Prior VTE?: Yes VTE Risk Level:: Medical - moderate - high VTE Device Contraindication: Treatment Not Indicated VTE Drug Contraindication: N/A - Med Ordered
--- NOTE | 2022-04-03 10:10 | PHA.PROG ---
Addendum entered by Lesly Bae [facility] 04/03/22 12:05: Dr. Redd called pharmacy to make us aware that patients weight was inputted incorrectly. Patients weight went 108kg to 165.108 kg. Therefore changing the predicted AUC/ dosing regimen. Increasing dose to 1500mg Q24, level to be drawn at same time. Predicted AUC 524 mg/L/hr. Original Note: Admission Date/Time: April 03, 2022 03:11 Indication: Bacteremia Weight in k.9 kg Adjusted body weight in K.12 Sims body weight in K.6 Obesity Dosing Indication % IBW: 40% Serum Creatinine - Last 168 Hours 04/02/22 04/03/22 23:31 04:35 Creatinine 1.90 H 1.62 H Estimated CrCl and GFR - Last 168 Hours 04/02/22 04/03/22 23:31 04:35 Estim Creat Clear Calc 51.3 60.2 Estimated GFR 36 43 Vancomycin Loading Dose: 2000mg Current Vancomycin Dosing Regimen: 1250mg Q24 Vancomycin Monitoring using AUC goal of 400 - 600 range with trough as surrogate marker: 540 mg/L/hr Date and Time for next Vancomycin Level to be drawn: 04/05 Pharmacist Comments on Vancomycin Plan: Using obese model. Patient has bacteremia, AUC of 500-600 mg/L/hr is preferred. 2000mg loading dose was given, this is 18mg/kg. Loading doses are typically dosed at 20mg/kg however patient is heavier. Patients renal function down to 1.62 down from 1.9 mg/dL. Predicted AUC of 540 mg/L/hr is appropriate at this time. Q24 dosing chosen due to patients age/ renal function. Level to be drawn 04/05. Vancomycin timing was manipulated so that pharmacy can monitor levels. Vancomycin dosing will take advantage of [employer] as a clinical decision support tool that uses Bayesian modeling to calculate individual patient's pharmacokinetic parameters and forecast the patient's drug concentration time course with the target goal AUC 24 range of 400 - 600 mg/L/hr.
--- NOTE | 2022-04-03 12:15 | PM.NEUROCN ---
History of Present Illness Data of Consult Service Date: 04/03/22 Primary Care Provider: Unknown Physician HPI Reason for consult: Stroke This is a 62-year-old man with history of bilateral DVT on Eliquis, HTN, hypothyroidism, arthritis, and renal impairment presented with severe right shoulder pain since February 26 after he fell? on his shoulder from a standing position, with constant worsening pain of his ?right shoulder. In addition, since last week he has become more forgetful, and his family of noticed some change in his speech which he denies. He has forgotten to take his medications. He has noticed redness and swelling of his left lower extremity over the weekend. ? He denies having any numbness, tingling, or weakness in his arms or lower extremities, or any visual loss.? He reports no slurred speech, no change in vision or headache, or chest pain. No previous stroke Hx. his CAT scan of the brain shows a subacute fairly large right posterior parietal ischemic infarct. Hiis carotid Doppler which has not been read officially shows approximately 50% right internal carotid stenosis and nonsignificant stenosis on the left. He is already anticoagulated with Eliquis. Review of Systems Review of Systems: Constitutional : No Fever, pos Chills ENT/Mouth : No sore throat, No Rhinorrhea Eyes: No Eye Pain, No Swelling, No Redness Cardiovascular : No Chest Pain, No SOB Respiratory : No Cough, No Sputum Gastrointestinal : No Nausea, No Vomiting, No Diarrhea, No abdominal Pain Genitourinary : No Dysuria, No Hematuria Musculoskeletal : pos joint pain, No Myalgias, No Joint Swelling Skin : No Skin Lesions, positive skin rash Neuro : pos Weakness, No Numbness, No Headache, pos confusion Psych : No Anxiety, No Depression Heme/Lymph: No Bruising, No Bleeding,No Lymphadenopathy Endocrine : No Polyuria, No Polydipsia All other systems reviewed and are negative Yes all other systems are reviewed and are negative Constitutional: Constitutional: Reports as per HPI Eyes: Eyes: Reports as per HPI ENT: Reports as per HPI Cardiovascular: Cardiovascular: Reports as per HPI, Reports no additional cardiovascular complaints, Denies acrocyanosis, Denies cool extremities, Denies chest pain, Denies leg edema, Denies lightheadedness, Denies palpitations and Denies dyspnea Respiratory: Respiratory: Reports as per HPI, Reports no additional respiratory complaints and Denies dyspnea Gastrointestinal: Gastrointestinal: Reports as per HPI and Reports no additional gastrointestinal complaints Genitourinary: Genitourinary: Reports no additional male genitourinary complaints and Reports as per HPI Musculoskeletal: Musculoskeletal: Reports no additional musculoskeletal complaints and Reports as per HPI Integumentary/Breasts: Skin/Breast: Reports system reviewed and no additional complaints, except as docu Neurologic: Reports system reviewed and no additional complaints, except as documented and Reports as per HPI Psychiatric: Psychiatric: Reports no additional psychiatric complaints and Reports as per HPI Endocrine: Endocrine: Reports no additional endocrine complaints, Reports as per HPI and Denies palpitations Hematologic/Lymphatic: Hematologic/Lymphatic: Reports no additional hematologic/lymphatic complaints and Reports as per HPI Allergic/Immunologic: Allergic/Immunologic: Reports no additional allergic/immunologic complaints and Reports as per HPI PMFSH Past Medical History Medical History DVT (deep venous thrombosis) Hypertension Hypothyroidism Family History Family History (Updated 04/03/22 @ 09:14 by Caleb Macias MD) Mother No problems noted. Father Coronary artery disease Surgical History Surgical History History of total right hip replacement (~05/23/20) Social History Social History Household Members: Spouse Housing: Apartment Do you presently have visiting nurse or other home services: No Alcohol intake: current Alcohol intake frequency: holidays/special occasions only Patient Tobacco Use Status: Never used Tobacco Use of substances other than those prescribed or required for medical reasons: No Currently Displaying Signs/Symptoms of Drug Intoxication Withdrawal: No Any prior treatment program specific to substance use: No Have you been hit, kicked, punched, or otherwise hurt by someone within the past year? 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 Meds Allergies Allergy/AdvReac Type Severity Reaction Status Date / Time No Known Allergies Allergy Verified 04/02/22 15:00 [No Known Allergies*] Active Medications: Current Medications Acetaminophen (Acetaminophen 325 Mg Tablet) 650 mg PO Q6H PRN PRN Reason: Pain, Mild (Pain Scale 1-3) Aspirin (Aspirin Enteric Coated 81 Mg Tablet.Dr) 81 mg PO DAILY [facility] Last Admin: 04/03/22 07:34 Dose: 81 mg Atorvastatin Calcium (Atorvastatin Calcium 80 Mg Tablet) 80 mg PO DAILY [facility] Last Admin: 04/03/22 07:34 Dose: 80 mg Docusate Sodium (Docusate Sodium 100 Mg Capsule) 100 mg PO DAILY PRN PRN Reason: Constipation Heparin Sodium (Porcine) (Heparin Sodium,Porcine 5,000 Unit/Ml Vial) 6,600 unit 40 unit/kg (6600 unit) IVPUSH PROTOCOL BOLUS PRN; Protocol PRN Reason: 40 unit/kg - Heparin Protocol Heparin Sodium (Porcine) (Heparin Sodium,Porcine 5,000 Unit/Ml Vial) 10,000 unit IVPUSH PROTOCOL BOLUS PRN; Protocol PRN Reason: 80 unit/kg - Heparin Protocol Lactated Ringer's (Lr) 1,000 mls @ 100 mls/hr IVCONT .Q10H [facility] Last Admin: 04/03/22 06:08 Dose: 100 mls/hr Cefazolin Sodium/Dextrose (Ancef) 2 gm in 50 mls @ 100 mls/hr IV Q8H [facility] Last Infusion: 04/03/22 08:27 Dose: Infused Vancomycin HCl 1,500 mg/ (Sodium Chloride) 500 mls @ 333.333 mls/hr IV Q24H [facility] Heparin Sodium/Sodium Chloride () 25,000 unit in 250 mls @ 0 mls/hr IVCONT .Q0M [facility]; Protocol Levothyroxine Sodium (Levothyroxine Sodium 50 Mcg Tablet) 50 mcg PO DAILY@0600 [facility] Last Admin: 04/03/22 07:34 Dose: 50 mcg Ondansetron HCl (Ondansetron Hcl 4 Mg/2 Ml Vial) 4 mg IVPUSH Q8H PRN PRN Reason: Nausea and Vomiting Oxycodone HCl (Oxycodone Hcl Immed Release 5 Mg Tablet) 5 mg PO QID PRN PRN Reason: Pain, Moderate (Pain Scale 4-6 Pharmacy Consult (Consult Rx Vancomycin Dosing) 1 each MISCELLANE DAILY PRN PRN Reason: Consult order Home Medications Medication Instructions Recorded Confirmed Last Taken Type apixaban 5 mg tablet (Eliquis) 1 tab PO BID 04/03/22 04/03/22 Unknown History levothyroxine 50 mcg tablet 1 tab PO DAILY 04/03/22 04/03/22 Unknown History lisinopril 20 1 tab PO DAILY 04/03/22 04/03/22 Unknown History mg-hydrochlorothiazide 25 mg tablet methocarbamol 750 mg tablet 1 tab PO Q6H PRN muscle spasm 04/03/22 04/03/22 Unknown History oxycodone-acetaminophen 5 mg-325 1 tab PO QID PRN Pain 04/03/22 04/03/22 Unknown History mg tablet Physical Exam Vital Signs: Vital Signs: Last Vital Signs Temp 99.2 F 04/03/22 11:51 Pulse 98 04/03/22 11:51 Resp 18 04/03/22 11:51 BP 132/74 04/03/22 11:51 Pulse Ox 93 04/03/22 11:51 O2 Del Method 04/03/22 11:51 BMI result Body Mass Index 49.4 Const: General: cooperative, comfortable and no acute distress Orientation/consciousness: patient oriented x3 HEENT: Other: Unremarkable Head: Yes normal to inspection Eyes: General: appearance normal, both eyes and all related structures Neck: Neck: Yes normal visual inspection Chest: Chest palpation & inspection: normal inspection of the chest Resp: Effort & Inspection: normal respiratory effort Auscultation: clear to auscultation bilaterally Cardio: Palpation: normal PMI Rate: regular rate Rhythm: regular rhythm Heart sounds: S1 normal heart sound present, S2 normal heart sound present, no gallops, no murmurs and no rubs GI: Palpation (GI): Soft to palpation Auscultation: normal bowel sounds Back/Spine/Pelvis: Other: unremarkable Skin: General skin exam: no rashes or lesions noted Neuro: Other: he is a subtle droop of the left angle of the mouth and a pronation drift of the left upper extremity. Right upper extremity could not be adequately tested proximlly because of shoulder pain however distal strength is normal. Lower extremity strength is normal. He has hyporeflexia. Plantar response is flexor. There is no visual field deficit and no dysarthria General: patient oriented x3 Cognition (Neuro): normal cognition Extrem: Other: 2-3+ edema; left leg redness General: Yes normal to inspection and Yes no pedal edema Psych: Mental Status: mental status grossly normal Results Labs CBC & Chem 7: 04/03/22 04:35 04/03/22 04:35 Labs: Short CBC 04/02/22 04/03/22 Range/Units 22:28 04:35 WBC 11.9 H 12.1 H (4.8-10.8) X10*3/uL Hgb 13.3 L 12.1 L (14.0-18.0) g/dl Hct 40.6 L 36.7 L (42.0-52.0) % Plt Count 199 178 (160-400) X10*3/uL BMP 04/02/22 04/03/22 23:31 04:35 Sodium 134 L 136 Potassium 3.9 4.0 Chloride 98 101 Carbon Dioxide 23 21 L BUN 55 H 50 H Creatinine 1.90 H 1.62 H Calcium 8.6 D 8.3 L Cardiac Enzymes 04/02/22 Range/Units 23:31 Total Creatine Kinase 122 (38-174) U/L Liver Function 04/02/22 Range/Units 23:31 Total Bilirubin 2.4 H (0.0-1.0) mg/dL AST 68 H (5-37) U/L ALT 71 H (0-40) U/L Alkaline Phosphatase 89 D (39-117) U/L Albumin 3.3 L (3.5-5.0) g/dL Urine 04/02/22 Range/Units 22:46 Urine Color YELLOW Urine Appearance CLEAR Urine pH 6.0 (5.0-8.0) Ur Specific [place] 1.015 (1.005-1.025) Urine Protein TRACE (NEG-TRACE) MG/DL Urine Glucose (UA) NEG (NEG) MG/DL Microbiology Microbiology Results: Microbiology 04/02/22 22:28 Blood - Venous Blood Culture - Preliminary Prelim: GPC Gram Stain only 04/02/22 22:28 Blood - Venous Blood Culture - Preliminary Prelim: GPC Gram Stain only Assessment and Plan (1) Cellulitis: Status: Acute (2) CVA (cerebral vascular accident): Qualifiers: CVA mechanism: unspecified Qualified Code(s): I63.9 - Cerebral infarction, unspecified Status: Acute subacute right parietal infarct presenting probablyy several days after the event. He is already anticoagulated and with aliquots. Carotid Doppler has been done and does not show hemodynamically significant stenosis. Recommendation: Continue aliquots. Add aspirin 81 mg a day. No further neurological workup is necessary at this time. Because he has no significant deficit she does not need any PT or OT. (3) NSTEMI (non-ST elevated myocardial infarction): Status: Acute Plan 62M with PMH bilateral DVT in 2020, morbid obesity, HTN, hypothryoid, presented with confusion, lle erythema after stopping eliquis metabolic encephalopathy with questionable subacute CVA on CT head neuro eval given bactremia will check mri with and without contrast carotid doppler PT/OT JACY improved with hydration, holding charli-i 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 continue heparin infusion for now (incase interventions needed during hospitalizations) GPC bacteremia, LLE cellulitis continue ancef added vanc until sensitivities follow up repeat check echo - concern for endocarditis being underlying cause for presentation ID eval elevated lfts monitor, check abd us elevated troponin doubt ACS, likely cardiac strain, check echo cardiology to see morbid obesity weight loss recommended, outpatient EMIGDIO screening HTN holding hctz and charli-i for jacy, monitor for now hypothyroid synthroid full code reason for continued hospitalization:iv abx for bacteremia, ongoing investigation for cth finding, lfts, elevated troponins, ivf for jacy Procedures Date of Service Date of Service: 04/03/22
--- NOTE | 2022-04-03 12:19 | PC.NURSE ---
this RN noted pt weight was incorrect, communicated with pharmacy and MD to make adjustment. Per Pharmacy, incident report will be filed, change heparin bag with the new order an continue to run Heparin at current dosing and adjust for new PTTHD due at 1451.
[2022-04-03] MEDS: Heparin Sodium,Porcine/1/2NS 25,000 UNIT/250 ML IV.SOLN 29.7 UNIT IVCONT (12:34)
--- NOTE | 2022-04-03 12:43 | MHC.CM.PN ---
met with pt who lives with his pt reports not having services,prior to admission pt is indepedent ,he is vax x 3 ,his will transport nhome..
--- NOTE | 2022-04-03 12:47 | PC.NURSE ---
HD running at 17.99units/kg, pharmacy ok.
--- NOTE | 2022-04-03 13:13 | P.CNID_ITS ---
History of Present Illness Data of Consult Service Date: 04/03/22 Requesting physician: Florencio Redd Primary Care Provider: Unknown Physician HPI Reason for consult: bacteremia He presents to hospital with weakness and trouble word finding and encephalopathic tendencies. He also had left leg erythema. He had cut lateral leg and had erythema after fall from directors chair two weeks ago and using antibiotic cream on occasion lateral leg. Blood cultures staph ,pending culture and sensitivities. He has left TKR and ankle surgery after injury to ankle in 2003 with tib/fib fracture after his boot liner maker slid into him at practice. He had TTE poor quality nondefinitive. He has right parietal CVA and is seeing Neurology here. He had some right shoulder pain reported but patient not aware of that at this time. Review of Systems Review of Systems: Yes all other systems are reviewed and are negative [facility] Past Medical History Medical History (Updated 04/03/22 @ 13:19 by Kristen Martinez MD) Bacteremia DVT (deep venous thrombosis) Hypertension Hypothyroidism Family History Family History Mother No problems noted. Father Coronary artery disease Family history: reviewed and not pertinent Surgical History Surgical History History of total right hip replacement (~05/23/20) Social History Social History Household Members: Spouse Housing: Apartment Do you presently have visiting nurse or other home services: No Alcohol intake: current Alcohol intake frequency: holidays/special occasions only Patient Tobacco Use Status: Never used Tobacco Use of substances other than those prescribed or required for medical reasons: No Currently Displaying Signs/Symptoms of Drug Intoxication Withdrawal: No Any prior treatment program specific to substance use: No Have you been hit, kicked, punched, or otherwise hurt by someone within the past year? 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 Meds Allergies Allergy/AdvReac Type Severity Reaction Status Date / Time No Known Allergies Allergy Verified 04/02/22 15:00 [No Known Allergies*] Active Medications: Current Medications Acetaminophen (Acetaminophen 325 Mg Tablet) 650 mg PO Q6H PRN PRN Reason: Pain, Mild (Pain Scale 1-3) Aspirin (Aspirin Enteric Coated 81 Mg Tablet.) 81 mg PO DAILY [facility] Last Admin: 04/03/22 07:34 Dose: 81 mg Atorvastatin Calcium (Atorvastatin Calcium 80 Mg Tablet) 80 mg PO DAILY [facility] Last Admin: 04/03/22 07:34 Dose: 80 mg Docusate Sodium (Docusate Sodium 100 Mg Capsule) 100 mg PO DAILY PRN PRN Reason: Constipation Heparin Sodium (Porcine) (Heparin Sodium,Porcine 5,000 Unit/Ml Vial) 6,600 unit 40 unit/kg (6600 unit) IVPUSH PROTOCOL BOLUS PRN; Protocol PRN Reason: 40 unit/kg - Heparin Protocol Heparin Sodium (Porcine) (Heparin Sodium,Porcine 5,000 Unit/Ml Vial) 10,000 unit IVPUSH PROTOCOL BOLUS PRN; Protocol PRN Reason: 80 unit/kg - Heparin Protocol Lactated Ringer's (Lr) 1,000 mls @ 100 mls/hr IVCONT .Q10H [facility] Last Admin: 04/03/22 06:08 Dose: 100 mls/hr Cefazolin Sodium/Dextrose (Ancef) 2 gm in 50 mls @ 100 mls/hr IV Q8H [facility] Last Infusion: 04/03/22 08:27 Dose: Infused Vancomycin HCl 1,500 mg/ (Sodium Chloride) 500 mls @ 333.333 mls/hr IV Q24H [facility] Heparin Sodium/Sodium Chloride () 25,000 unit in 250 mls @ 0 mls/hr IVCONT .Q0M [facility]; Protocol Last Admin: 04/03/22 12:34 Dose: 17.99 units/kg/hr, 29.7 mls/hr Levothyroxine Sodium (Levothyroxine Sodium 50 Mcg Tablet) 50 mcg PO DAILY@0600 [facility] Last Admin: 04/03/22 07:34 Dose: 50 mcg Ondansetron HCl (Ondansetron Hcl 4 Mg/2 Ml Vial) 4 mg IVPUSH Q8H PRN PRN Reason: Nausea and Vomiting Oxycodone HCl (Oxycodone Hcl Immed Release 5 Mg Tablet) 5 mg PO QID PRN PRN Reason: Pain, Moderate (Pain Scale 4-6 Pharmacy Consult (Consult Rx Vancomycin Dosing) 1 each MISCELLANE DAILY PRN PRN Reason: Consult order Home Medications Medication Instructions Recorded Confirmed Last Taken Type apixaban 5 mg tablet (Eliquis) 1 tab PO BID 04/03/22 04/03/22 Unknown History levothyroxine 50 mcg tablet 1 tab PO DAILY 04/03/22 04/03/22 Unknown History lisinopril 20 1 tab PO DAILY 04/03/22 04/03/22 Unknown History mg-hydrochlorothiazide 25 mg tablet methocarbamol 750 mg tablet 1 tab PO Q6H PRN muscle spasm 04/03/22 04/03/22 Unknown History oxycodone-acetaminophen 5 mg-325 1 tab PO QID PRN Pain 04/03/22 04/03/22 Unknown History mg tablet Physical Exam Vital Signs: Vital Signs: Last Vital Signs Temp 99.2 F 04/03/22 11:51 Pulse 98 04/03/22 11:51 Resp 18 04/03/22 11:51 BP 132/74 04/03/22 11:51 Pulse Ox 93 04/03/22 11:51 O2 Del Method 04/03/22 11:51 BMI result Body Mass Index 49.4 Const: General: cooperative HEENT: Head: Yes normal to inspection Face and sinus: Yes normal facial exam Mouth: Normal oral and palatal mucosa present Teeth and gingiva: dentition normal Eyes: General: appearance normal, both eyes and all related structures Pupils: Equal, round and reactive pupils present Resp: Effort & Inspection: normal respiratory effort Cardio: Rate: regular rate Rhythm: regular rhythm GI: Palpation (GI): Soft to palpation and nontender : General: Yes no CVA tenderness Back/Spine/Pelvis: Back: no CVA tenderness Skin: General skin exam: no rashes or lesions noted Neuro: General: moves all extremities Cranial nerves: Yes Equal, round and reactive pupils present Extrem: Other: hot red LLE below knee, three .5 cm abrasions laterally no tinea pedis no pain moving ankle or knee Psych: Appearance: grossly normal Results Labs CBC & Chem 7: 04/03/22 04:35 04/03/22 04:35 Labs: Short CBC 04/02/22 04/03/22 Range/Units 22:28 04:35 WBC 11.9 H 12.1 H (4.8-10.8) X10*3/uL Hgb 13.3 L 12.1 L (14.0-18.0) g/dl Hct 40.6 L 36.7 L (42.0-52.0) % Plt Count 199 178 (160-400) X10*3/uL BMP 04/02/22 04/03/22 23:31 04:35 Sodium 134 L 136 Potassium 3.9 4.0 Chloride 98 101 Carbon Dioxide 23 21 L BUN 55 H 50 H Creatinine 1.90 H 1.62 H Calcium 8.6 D 8.3 L Cardiac Enzymes 04/02/22 Range/Units 23:31 Total Creatine Kinase 122 (38-174) U/L Liver Function 04/02/22 Range/Units 23:31 Total Bilirubin 2.4 H (0.0-1.0) mg/dL AST 68 H (5-37) U/L ALT 71 H (0-40) U/L Alkaline Phosphatase 89 D (39-117) U/L Albumin 3.3 L (3.5-5.0) g/dL Urine 04/02/22 Range/Units 22:46 Urine Color YELLOW Urine Appearance CLEAR Urine pH 6.0 (5.0-8.0) Ur Specific [place] 1.015 (1.005-1.025) Urine Protein TRACE (NEG-TRACE) MG/DL Urine Glucose (UA) NEG (NEG) MG/DL Microbiology Microbiology Results: Microbiology 04/02/22 22:28 Blood - Venous Blood Culture - Preliminary Prelim: GPC Gram Stain only 04/02/22 22:28 Blood - Venous Blood Culture - Preliminary Prelim: GPC Gram Stain only Assessment and Plan (1) Bacteremia: Status: Acute Blood culture not identified yet. There is possible MSSA or MRSA He has high BMI so may benefit from 3 g Kefzol IV every 8 h (will d/w Pharmacy). Also continue Vancomycin until identification of organism. Cardiology and Neurology are following and wonder if there is endocarditis causing any CVA or septic emboli to brain. Consider PETRA if feasible (patient has been anticoagulated) Likely 4-6 weeks IV therapy (2) CVA (cerebral vascular accident): Qualifiers: CVA mechanism: unspecified Qualified Code(s): I63.9 - Cerebral infarction, unspecified Status: Acute (3) Cellulitis: Status: Acute (4) DVT (deep venous thrombosis): Status: Acute
[2022-04-03] MEDS: Acetaminophen 325 MG TABLET 650 MG PO (15:23)
[2022-04-03 15:31] LABS: PTT Heparin Drip 43.7 SEC (53-77.9)
[2022-04-03] MEDS: Heparin Sodium,Porcine 5,000 UNIT/ML VIAL 6600 UNIT IVPUSH ×2 (15:42→22:47)
[2022-04-03] MEDS: Heparin Sodium,Porcine/1/2NS 25,000 UNIT/250 ML IV.SOLN 33.01 UNIT IVCONT (21:05)
[2022-04-03] MEDS: Metoprolol Tartrate 5 MG/5 ML VIAL IVPUSH (21:40)
--- NOTE | 2022-04-03 21:55 | PM.EVENT ---
Event Note Date of Service: 04/03/22 Event Note: Patient went into SVT after having a BM with heart rate reaching to 30s to 240s. Patient asymptomatic. Laying in bed, no chest pain, no headache, no change in vision, no dizziness, no shortness of breath, no fluttering. Given 5 mg of IV metoprolol with heart rate dropping to the 140s 150s, EKG showed a flutter with rapid ventricular response. Patient started on Cardizem drip. Complete labs including CBC, BMP, magnesium, troponin, lactic acid, and TSH ordered.
[2022-04-03] MEDS: dilTIAZem HCL 50 MG/10 ML VIAL 10 MG IVPUSH (22:00)
[2022-04-03] MEDS: vancomycin HCL 1,500 MG in 0.9 % Sodium Chloride 500 ML 333.33 MG IV (22:01)
[2022-04-03] MEDS: dilTIAZem HCL 125 MG in 0.9 % Sodium Chloride 100 ML 10 MG IVCONT (22:13)
[2022-04-03 22:23] LABS: Hematocrit 36.9 % (42.0-52.0); Hemoglobin 12.2 g/dl (14.0-18.0); Mean Corpuscular HGB Conc 33.1 g/dl (31.0-36.0); Mean Corpuscular Volume 81.6 fL (80.0-98.0); Mean Platelet Volume 9.7 fL (9.4-12.4); NRBC Pct Auto 0.1 /100WBC (0.0-0.2); Platelet Count 184 X10*3/uL (160-400); Red Blood Count 4.52 X10*6/uL (4.60-5.80); Red Cell Distribution Width 15.3 % (11.0-16.0); White Blood Count 16.3 X10*3/uL (4.8-10.8)
[2022-04-03 22:26] LABS: PTT Heparin Drip 50.3 SEC (53-77.9)
[2022-04-03 22:38] LABS: Troponin-I High Sensitivity 360.9 ng/L (<3.5-35.0)
[2022-04-03 22:39] LABS: Lactic Acid 2.1 mmol/L (0.5-2.0)
[2022-04-03 22:43] LABS: Band Neutrophils Percent 8 % (3-5); Eosinophils Absolute Manual 0.3 X10*3/uL (0.0-0.4); Eosinophils Percent Manual 2 % (0-4); Lymphocytes Absolute Manual 1.1 X10*3/uL (1.2-4.9); Lymphocytes Percent Manual 7 % (20-40); Metamyelocytes Absolute 0.8 X10*3/uL; Metamyelocytes Percent 5 %; Monocytes Absolute Manual 0.8 X10*3/uL (0.1-1.2); Monocytes Percent Manual 5 % (2-11); Myelocytes Absolute 0.2 X10*/uL; Myelocytes Percent 1 %; Neutrophils Percent Manual 72 % (45-73)
[2022-04-03 22:44] LABS: Platelet Estimate NORMAL (NORMAL); Platelet Morphology Comment NORMAL; Toxic Vacuolation PRESENT
[2022-04-03 22:45] LABS: Dohle Bodies PRESENT; RBC Morphology NORMAL
[2022-04-03 23:39] LABS: B Type Natriuretic Peptide 192 pg/mL (<100)
[2022-04-03 23:43] LABS: Anion Gap 19 (12-20); Blood Urea Nitrogen 40 mg/dL (9-16); Calcium 7.6 mg/dL (8.4-10.2); Carbon Dioxide 19 mmol/L (22-29); Chloride 99 mmol/L (96-108); Creatinine Clr Calc Pharmacy 74.8; Estimated Glomerular Filt Rate 43; Glucose Random 148 mg/dL (60-115); Magnesium 1.4 mg/dL (1.6-2.6); Potassium 3.6 mmol/L (3.3-5.1); Sodium 133 mmol/L (135-145)
[2022-04-03 23:47] LABS: Thyroid Stimulating Hormone 7.32 uIU/mL (0.32-4.0)
[2022-04-03] MEDS: oxyCODONE HCl Immed Release 5 MG TABLET PO (23:49)
[2022-04-04] VITALS (7 sets, daily range): BP systolic 112–144; BP diastolic 58–78; PULSE 73–140; RESP 17–20; TEMP 36–36.9; O2SAT 90–97
[2022-04-04] MEDS: Lactated Ringers 1,000 ML 100 ML IVCONT ×3 (00:05→23:31)
[2022-04-04 00:06] LABS: Reflex Lactate? Lactic Acid Added
[2022-04-04] MEDS: Metoprolol Tartrate 5 MG/5 ML VIAL 2.5 MG IVPUSH (00:07)
[2022-04-04] MEDS: Magnesium Sulfate/H2O 2 GM/50 ML PIGGYBACK IV (00:15)
[2022-04-04] MEDS: Potassium Chloride Packet 20 MEQ PACKET 40 MEQ PO (00:36)
[2022-04-04] MEDS: ceFAZolin Sodium/Dextrose,Iso 2 GM/50 ML PIGGYBACK IV ×2 (00:36→08:06)
[2022-04-04 02:04] LABS: ~Lactic Acid-LAB USE ONLY 1.8 mmol/L (0.5-2.0)
[2022-04-04] MEDS: Heparin Sodium,Porcine/1/2NS 25,000 UNIT/250 ML IV.SOLN 36.31 UNIT IVCONT (04:44)
--- NOTE | 2022-04-04 04:55 | PC.NURSE ---
At 2099 pt was assisted by staff from recliner to commode and had a BM and voided, then assited to bed after, suddenly noted with increase HR in tele from 170s-200, pt denies any symptoms, comfortable sitting at the edge of the bed, after well rested for few mins ,HR was sustaining at 200s, instructed pt to blow hard as he bear down few times but no effect, rest of vitals are WNL paged at 2132, STAT EKG done. came to the bedside, Nursing Flarer was paged. Metoprolol 5 mg Iv push given at 2139, HR came down to the 130s and noted HR is now on Afib/Aflutter , EKG confirmed rhythm, STAT labs drawn. At HR still sustaining at 130s-140s, Cardizem 10 mg IV pushed given by RENÉE Lewis supervisor type disk quality control then she started Cardizem drip at 10mg/hr at 2212. At 2236 LAb called for a critical troponin =360.9 and critical Lactic acid =2.1, informed, LR bolus 1L given. At 2346 Lab called for a critical Magnesium level=1.4, HR still at 140s-150s, rest of Vitals still stable, made aware, Mag sulfate 2gm IV drip given, Potassium packets given. At 0010 HR still at 130s-140s, Cardizem drip titrated up to 15mg/hr, another Metoprolol 2.5 mg IVP given. At 0052 HR broke to SR at 80s-90s, Dr. Root was notified, and said to slowly titrate down Cardizem by 2.5 mg to reach 5mg/hr and maintain on this rate. Cardizem drip was successfully titrated down to 5 mg/hr at 4am, HR maintained at SR 80s.
[2022-04-04 05:16] LABS: Hematocrit 34.4 % (42.0-52.0); Hemoglobin 11.3 g/dl (14.0-18.0); Mean Corpuscular HGB Conc 32.8 g/dl (31.0-36.0); Mean Corpuscular Hemoglobin 26.7 pg (27.0-33.0); Mean Corpuscular Volume 81.3 fL (80.0-98.0); Mean Platelet Volume 9.6 fL (9.4-12.4); NRBC Pct Auto 0.1 /100WBC (0.0-0.2); Platelet Count 172 X10*3/uL (160-400); Red Blood Count 4.23 X10*6/uL (4.60-5.80); Red Cell Distribution Width 15.3 % (11.0-16.0); White Blood Count 18.2 X10*3/uL (4.8-10.8)
[2022-04-04 05:22] LABS: INTERNATIONAL NORM RATIO 1.5 (0.9-1.1); Prothrombin Time 17.2 SEC (10.0-13.1)
[2022-04-04 05:25] LABS: PTT Heparin Drip 76.6 SEC (53-77.9)
[2022-04-04] MEDS: Levothyroxine Sodium 50 MCG TABLET PO (05:31)
[2022-04-04 06:04] LABS: Alanine Aminotransferase 48 U/L (0-40); Albumin Level 2.8 g/dL (3.5-5.0); Alkaline Phosphatase 83 U/L (39-117); Anion Gap 17 (12-20); Aspartate Amino Transferase 55 U/L (5-37); Bilirubin Direct 0.9 mg/dL (0.0-0.5); Bilirubin Total 1.6 mg/dL (0.0-1.0); Blood Urea Nitrogen 37 mg/dL (9-16); Calcium 7.7 mg/dL (8.4-10.2); Carbon Dioxide 19 mmol/L (22-29); Chloride 100 mmol/L (96-108); Cholesterol 110 mg/dL; Creatinine Clr Calc Pharmacy 81.8; Estimated Glomerular Filt Rate 48; Glucose Fasting 134 mg/dL (60-99); HDL Cholesterol 11 mg/dL; LDL Cholesterol Calculated 68 mg/dl; Magnesium 1.8 mg/dL (1.6-2.6); Potassium 3.9 mmol/L (3.3-5.1); Sodium 132 mmol/L (135-145); Total Protein 5.9 g/dL (6.5-8.0); Triglycerides 155 mg/dL
--- NOTE | 2022-04-04 06:52 | HE.PHANOTE ---
Vancomycin Dosing Addendum Patients renal function down to 1.49 from 1.62. Patient due for a level tomorrow 04/05 @1999 right before the third dose. As of now, keep current regimen of 1500mg Q24h. Predicted AUC 480 mg/L/hr.
[2022-04-04] MEDS: oxyCODONE HCl Immed Release 5 MG TABLET PO ×2 (08:06→16:50)
[2022-04-04] MEDS: Aspirin Enteric Coated 81 MG TABLET.DR PO (08:06)
[2022-04-04] MEDS: Atorvastatin Calcium 80 MG TABLET PO (08:06)
--- NOTE | 2022-04-04 08:42 | ECG_ITS ---
Test Reason : afib Blood Pressure : / mmHG Vent. Rate : 085 BPM Atrial Rate : 085 BPM P-R Int : 182 ms QRS Dur : 124 ms QT Int : 408 ms P-R-T Axes : 012 052 035 degrees QTc Int : 485 ms Normal sinus rhythm cannot exclude Lateral infarct , age undetermined Abnormal ECG When compared with ECG of 03-APR-2022 21:45, Sinus rhythm has replaced Atrial flutter Vent. rate has decreased BY 51 BPM Referred By: Marcela Jo Electronically Signed By:MARCELA JO
--- NOTE | 2022-04-04 09:21 | P.PNCA_ITS ---
Subjective Subjective Date of Service: 04/04/22 Interval history: He states that he is feeling well. Denies any complaints at this time from cardiac standpoint. Review of Systems Review of Systems Yes all other systems are reviewed and are negative Constitutional: Reports as per HPI Eyes: Reports as per HPI Reports as per HPI Cardiovascular: Reports as per HPI, Denies acrocyanosis, Denies cool extremities, Denies chest pain, Denies leg edema, Denies lightheadedness, Denies palpitations and Denies dyspnea Respiratory: Reports as per HPI, Reports no additional respiratory complaints and Denies dyspnea Gastrointestinal: Reports as per HPI and Reports no additional gastrointestinal complaints Genitourinary: Reports no additional male genitourinary complaints and Reports as per HPI Musculoskeletal: Reports no additional musculoskeletal complaints and Reports as per HPI Skin/Breast: Reports system reviewed and no additional complaints, except as docu Reports system reviewed and no additional complaints, except as documented and Reports as per HPI Psychiatric: Reports no additional psychiatric complaints and Reports as per HPI Endocrine: Reports no additional endocrine complaints, Reports as per HPI and Denies palpitations Hematologic/Lymphatic: Reports no additional hematologic/lymphatic complaints and Reports as per HPI Allergic/Immunologic: Reports no additional allergic/immunologic complaints and Reports as per HPI Physical Exam Vital Signs: Last Vital Signs Temp 96.8 F 04/04/22 07:48 Pulse 84 04/04/22 08:49 Resp 19 04/04/22 07:48 BP 144/75 H 04/04/22 08:49 Pulse Ox 97 04/04/22 08:49 O2 Del Method 04/04/22 07:48 O2 Flow Rate 2 04/03/22 22:15 BMI result Body Mass Index 49.4 Const General: comfortable and no acute distress Orientation/consciousness: patient oriented x3 HEENT Other: Unremarkable Head: Yes normal to inspection Neck Neck: Yes normal visual inspection Chest Chest palpation & inspection: normal inspection of the chest Resp Auscultation: clear to auscultation bilaterally Cardio Palpation: normal PMI Heart sounds: S1 normal heart sound present, S2 normal heart sound present, no gallops, no murmurs and no rubs GI Palpation (GI): Soft to palpation Back/Spine/Pelvis Other: unremarkable Skin General skin exam: no rashes or lesions noted Neuro General: patient oriented x3 Extrem General: Yes normal to inspection Psych Mental Status: mental status grossly normal Objective Labs and Meds Result diagrams: 04/04/22 05:10 04/04/22 05:10 Lab results: Laboratory Results - last 24 hr 04/03/22 04/03/22 04/03/22 15:14 22:03 22:03 WBC 16.3 H RBC 4.52 L Hgb 12.2 L Hct 36.9 L MCV 81.6 MCH 27.0 MCHC 33.1 RDW 15.3 Plt Count 184 MPV 9.7 Immature Gran % (Auto) Cancelled Neut % (Auto) Cancelled Lymph % (Auto) Cancelled [place] % (Auto) Cancelled Eos % (Auto) Cancelled Baso % (Auto) Cancelled Lymph # (Auto) Cancelled [place] # (Auto) Cancelled Eos # (Auto) Cancelled Baso # (Auto) Cancelled Abs Immat Gran (auto) Cancelled Absolute Neuts (auto) Cancelled Absolute Nucleated RBC 0.020 H Nucleated RBC % (auto) 0.1 Neutrophils % (Manual) 72 Band Neutrophils % 8 H Lymphocytes % (Manual) 7 L Monocytes % (Manual) 5 Eosinophils % (Manual) 2 Metamyelocytes % 5 Myelocytes % 1 Abs Neuts (Manual) 13.0 H Lymphocytes # (Manual) 1.1 L Monocytes # (Manual) 0.8 Eosinophils # (Manual) 0.3 Metamyelocytes # 0.8 Myelocytes # 0.2 Toxic Vacuolation PRESENT Dohle Bodies PRESENT Platelet Estimate NORMAL Plt Morphology Comment NORMAL RBC Morphology NORMAL PT INR aPTT Heparin Protocol 43.7 L D 50.3 L Sodium Potassium Chloride Carbon Dioxide Anion Gap BUN Creatinine Estim Creat Clear Calc Estimated GFR Random Glucose Fasting Glucose Lactic Acid Lactic Acid F/U @ 2Hr Calcium Magnesium Total Bilirubin Direct Bilirubin AST ALT Alkaline Phosphatase Troponin I High Sens B-Natriuretic Peptide Total Protein Albumin Triglycerides Cholesterol LDL Cholesterol, Calc HDL Cholesterol TSH 04/03/22 04/03/22 04/03/22 22:03 22:03 22:03 WBC RBC Hgb Hct MCV MCH MCHC RDW Plt Count MPV Immature Gran % (Auto) Neut % (Auto) Lymph % (Auto) [place] % (Auto) Eos % (Auto) Baso % (Auto) Lymph # (Auto) [place] # (Auto) Eos # (Auto) Baso # (Auto) Abs Immat Gran (auto) Absolute Neuts (auto) Absolute Nucleated RBC Nucleated RBC % (auto) Neutrophils % (Manual) Band Neutrophils % Lymphocytes % (Manual) Monocytes % (Manual) Eosinophils % (Manual) Metamyelocytes % Myelocytes % Abs Neuts (Manual) Lymphocytes # (Manual) Monocytes # (Manual) Eosinophils # (Manual) Metamyelocytes # Myelocytes # Toxic Vacuolation Dohle Bodies Platelet Estimate Plt Morphology Comment RBC Morphology PT INR aPTT Heparin Protocol Sodium 133 L Potassium 3.6 Chloride 99 Carbon Dioxide 19 L Anion Gap 19 BUN 40 H Creatinine 1.63 H Estim Creat Clear Calc 74.8 Estimated GFR 43 Random Glucose 148 H Fasting Glucose Lactic Acid 2.1 H* Lactic Acid F/U @ 2Hr Calcium 7.6 L D Magnesium 1.4 L* Total Bilirubin Direct Bilirubin AST ALT Alkaline Phosphatase Troponin I High Sens 360.9 H* B-Natriuretic Peptide 192 H Total Protein Albumin Triglycerides Cholesterol LDL Cholesterol, Calc HDL Cholesterol TSH 7.32 H 04/04/22 04/04/22 04/04/22 00:49 05:10 05:10 WBC 18.2 H RBC 4.23 L Hgb 11.3 L Hct 34.4 L MCV 81.3 MCH 26.7 L MCHC 32.8 RDW 15.3 Plt Count 172 MPV 9.6 Immature Gran % (Auto) Neut % (Auto) Lymph % (Auto) [place] % (Auto) Eos % (Auto) Baso % (Auto) Lymph # (Auto) [place] # (Auto) Eos # (Auto) Baso # (Auto) Abs Immat Gran (auto) Absolute Neuts (auto) Absolute Nucleated RBC 0.020 H Nucleated RBC % (auto) 0.1 Neutrophils % (Manual) Band Neutrophils % Lymphocytes % (Manual) Monocytes % (Manual) Eosinophils % (Manual) Metamyelocytes % Myelocytes % Abs Neuts (Manual) Lymphocytes # (Manual) Monocytes # (Manual) Eosinophils # (Manual) Metamyelocytes # Myelocytes # Toxic Vacuolation Dohle Bodies Platelet Estimate Plt Morphology Comment RBC Morphology PT 17.2 H INR 1.5 H aPTT Heparin Protocol Sodium Potassium Chloride Carbon Dioxide Anion Gap BUN Creatinine Estim Creat Clear Calc Estimated GFR Random Glucose Fasting Glucose Lactic Acid Lactic Acid F/U @ 2Hr 1.8 Calcium Magnesium Total Bilirubin Direct Bilirubin AST ALT Alkaline Phosphatase Troponin I High Sens B-Natriuretic Peptide Total Protein Albumin Triglycerides Cholesterol LDL Cholesterol, Calc HDL Cholesterol TSH 04/04/22 04/04/22 05:10 05:10 WBC RBC Hgb Hct MCV MCH MCHC RDW Plt Count MPV Immature Gran % (Auto) Neut % (Auto) Lymph % (Auto) [place] % (Auto) Eos % (Auto) Baso % (Auto) Lymph # (Auto) [place] # (Auto) Eos # (Auto) Baso # (Auto) Abs Immat Gran (auto) Absolute Neuts (auto) Absolute Nucleated RBC Nucleated RBC % (auto) Neutrophils % (Manual) Band Neutrophils % Lymphocytes % (Manual) Monocytes % (Manual) Eosinophils % (Manual) Metamyelocytes % Myelocytes % Abs Neuts (Manual) Lymphocytes # (Manual) Monocytes # (Manual) Eosinophils # (Manual) Metamyelocytes # Myelocytes # Toxic Vacuolation Dohle Bodies Platelet Estimate Plt Morphology Comment RBC Morphology PT INR aPTT Heparin Protocol 76.6 D Sodium 132 L Potassium 3.9 Chloride 100 Carbon Dioxide 19 L Anion Gap 17 BUN 37 H Creatinine 1.49 H Estim Creat Clear Calc 81.8 Estimated GFR 48 Random Glucose Fasting Glucose 134 H Lactic Acid Lactic Acid F/U @ 2Hr Calcium 7.7 L Magnesium 1.8 Total Bilirubin 1.6 H Direct Bilirubin 0.9 H AST 55 H ALT 48 H Alkaline Phosphatase 83 Troponin I High Sens B-Natriuretic Peptide Total Protein 5.9 L Albumin 2.8 L Triglycerides 155 Cholesterol 110 LDL Cholesterol, Calc 68 HDL Cholesterol 11 TSH Imaging Radiologist's impression: Impressions Pulmonary Perfusion Imaging 04/03/22 09:30 IMPRESSION: Very low probability of pulmonary embolism. Dilated cardiomediastinal silhouette. Abdomen Ultrasound 04/03/22 11:05 IMPRESSION: Enlarged echogenic liver and enlarged spleen. Limited visualization of the pancreas, aorta and IVC Carotid Doppler Study 04/03/22 11:27 IMPRESSION: Limited exam. 1. RIGHT: Calcified plaque and mild 0-49% right ICA stenosis. Right vertebral artery not seen. 2. LEFT: Calcified plaque and mild 0-49% left ICA stenosis. Left vertebral artery not seen. Progress Note: A&P Assessment and plan (1) NSTEMI (non-ST elevated myocardial infarction): Status: Acute Assessment and Plan: High sensitivity troponins are 632 followed by 627. Clinically, he does not have any symptoms. IV heparin 48 hours. Aspirin. Statins. Eventually, ischemia workup. (2) Atrial fibrillation with rapid ventricular response: Status: Acute Assessment and Plan: Overnight, he went into atrial fibrillation with rapid rate; currently back in normal sinus rhythm. Can start beta-blockers. (3) Bacteremia: Status: Acute Assessment and Plan: ID notes reviewed. Discussed with hospitalist. We will plan on getting a transesophageal echocardiogram to assess for any vegetations. Transthoracic study is very limited. (4) CVA (cerebral vascular accident): Status: Acute Assessment and Plan: Head CT reported to have right parietal infarct of uncertain chronicity. Carotid ultrasound shows low-grade stenosis. When doing PETRA, we can also try to get a bubble study. Plan Discussed with . Time Spent With Patient Time: Total time spent is greater than 50% in coordination of care (as documented) at patient's floor/unit and/or counseling patient: 35min. Progress Note: Quality Stroke Does the patient have a stroke diagnosis?: No Procedures Date of Service Date of Service: 04/04/22
--- NOTE | 2022-04-04 10:11 | P.PNIM_ITS ---
Subjective Subjective Date of Service: 04/04/22 Interval History: cc: ams, left leg erythema, swelling interval history:went into afib last night, was asymptomatic, overall feeling better Respiratory Respiratory: Reports no additional respiratory complaints Gastrointestinal Gastrointestinal: Reports no additional gastrointestinal complaints Physical Exam Vital Signs: Vital Signs: Last Vital Signs Temp 96.8 F 04/04/22 07:48 Pulse 84 04/04/22 08:49 Resp 19 04/04/22 07:48 BP 144/75 H 04/04/22 08:49 Pulse Ox 97 04/04/22 08:49 O2 Del Method 04/04/22 07:48 O2 Flow Rate 2 04/03/22 22:15 BMI result Body Mass Index 49.4 General: AO X 3, no acute distress Resp: CTA bilateral, no accessory muscles used CVS: S1,S2,RRR GI: soft, non tender, non distended Neuro: motor grossly intact, alert Psych: appropriate affect, appropriate insight LLE erythema, edema Objective Data Active Medications Acetaminophen (Acetaminophen 325 Mg Tablet) 650 mg PO Q6H PRN PRN Reason: Pain, Mild (Pain Scale 1-3) Last Admin: 04/03/22 15:23 Dose: 650 mg Documented By: ESPERANZA Apixaban (Apixaban 5 Mg Tablet) 5 mg PO BID [facility] Aspirin (Aspirin Enteric Coated 81 Mg Tablet.) 81 mg PO DAILY [facility] Last Admin: 04/04/22 08:06 Dose: 81 mg Documented By: MELITON Atorvastatin Calcium (Atorvastatin Calcium 80 Mg Tablet) 80 mg PO DAILY [facility] Last Admin: 04/04/22 08:06 Dose: 80 mg Documented By: MELITON Docusate Sodium (Docusate Sodium 100 Mg Capsule) 100 mg PO DAILY PRN PRN Reason: Constipation Lactated Ringer's (Lr) 1,000 mls @ 100 mls/hr IVCONT .Q10H [facility] Last Admin: 04/04/22 00:05 Dose: 100 mls/hr Documented By: PILLO Cefazolin Sodium/Dextrose (Ancef) 2 gm in 50 mls @ 100 mls/hr IV Q8H [facility] Last Infusion: 04/04/22 09:14 Dose: 0 mls/hr Documented By: MELITON Vancomycin HCl 1,500 mg/ (Sodium Chloride) 500 mls @ 333.333 mls/hr IV Q24H [facility] Last Infusion: 04/04/22 00:39 Dose: 0 mls/hr Documented By: PILLO Levothyroxine Sodium (Levothyroxine Sodium 50 Mcg Tablet) 50 mcg PO DAILY@0600 [facility] Last Admin: 04/04/22 05:31 Dose: 50 mcg Documented By: PILLO Metoprolol Tartrate (Metoprolol Tartrate 50 Mg Tablet) 50 mg PO BID [facility]; Protocol Ondansetron HCl (Ondansetron Hcl 4 Mg/2 Ml Vial) 4 mg IVPUSH Q8H PRN PRN Reason: Nausea and Vomiting Oxycodone HCl (Oxycodone Hcl Immed Release 5 Mg Tablet) 5 mg PO QID PRN PRN Reason: Pain, Moderate (Pain Scale 4-6 Last Admin: 04/04/22 08:06 Dose: 5 mg Documented By: MELITON Pharmacy Consult (Consult Rx Vancomycin Dosing) 1 each MISCELLANE DAILY PRN PRN Reason: Consult order Labs CBC & Chem 7: 04/04/22 05:10 04/04/22 05:10 Labs: Laboratory Results - last 24 hr 04/03/22 04/03/22 04/03/22 15:14 22:03 22:03 MCV 81.6 MCH 27.0 MCHC 33.1 RDW 15.3 Plt Count 184 MPV 9.7 Immature Gran % (Auto) Cancelled Neut % (Auto) Cancelled Lymph % (Auto) Cancelled [place] % (Auto) Cancelled Eos % (Auto) Cancelled Baso % (Auto) Cancelled Lymph # (Auto) Cancelled [place] # (Auto) Cancelled Eos # (Auto) Cancelled Baso # (Auto) Cancelled Abs Immat Gran (auto) Cancelled Absolute Neuts (auto) Cancelled Absolute Nucleated RBC 0.020 H Nucleated RBC % (auto) 0.1 Neutrophils % (Manual) 72 Band Neutrophils % 8 H Lymphocytes % (Manual) 7 L Monocytes % (Manual) 5 Eosinophils % (Manual) 2 Metamyelocytes % 5 Myelocytes % 1 Abs Neuts (Manual) 13.0 H Lymphocytes # (Manual) 1.1 L Monocytes # (Manual) 0.8 Eosinophils # (Manual) 0.3 Metamyelocytes # 0.8 Myelocytes # 0.2 Toxic Vacuolation PRESENT Micah Bodies PRESENT Platelet Estimate NORMAL Plt Morphology Comment NORMAL RBC Morphology NORMAL PT INR aPTT Heparin Protocol 43.7 L D 50.3 L Anion Gap Estim Creat Clear Calc Estimated GFR Random Glucose Fasting Glucose Lactic Acid Lactic Acid F/U @ 2Hr Calcium Magnesium Total Bilirubin Direct Bilirubin AST ALT Alkaline Phosphatase B-Natriuretic Peptide Total Protein Albumin Triglycerides Cholesterol LDL Cholesterol, Calc HDL Cholesterol TSH 04/03/22 04/03/22 04/03/22 22:03 22:03 22:03 MCV MCH MCHC RDW Plt Count MPV Immature Gran % (Auto) Neut % (Auto) Lymph % (Auto) [place] % (Auto) Eos % (Auto) Baso % (Auto) Lymph # (Auto) [place] # (Auto) Eos # (Auto) Baso # (Auto) Abs Immat Gran (auto) Absolute Neuts (auto) Absolute Nucleated RBC Nucleated RBC % (auto) Neutrophils % (Manual) Band Neutrophils % Lymphocytes % (Manual) Monocytes % (Manual) Eosinophils % (Manual) Metamyelocytes % Myelocytes % Abs Neuts (Manual) Lymphocytes # (Manual) Monocytes # (Manual) Eosinophils # (Manual) Metamyelocytes # Myelocytes # Toxic Vacuolation Dohle Bodies Platelet Estimate Plt Morphology Comment RBC Morphology PT INR aPTT Heparin Protocol Anion Gap 19 Estim Creat Clear Calc 74.8 Estimated GFR 43 Random Glucose 148 H Fasting Glucose Lactic Acid 2.1 H* Lactic Acid F/U @ 2Hr Calcium 7.6 L D Magnesium 1.4 L* Total Bilirubin Direct Bilirubin AST ALT Alkaline Phosphatase B-Natriuretic Peptide 192 H Total Protein Albumin Triglycerides Cholesterol LDL Cholesterol, Calc HDL Cholesterol TSH 7.32 H 04/04/22 04/04/22 04/04/22 00:49 05:10 05:10 MCV 81.3 MCH 26.7 L MCHC 32.8 RDW 15.3 Plt Count 172 MPV 9.6 Immature Gran % (Auto) Neut % (Auto) Lymph % (Auto) [place] % (Auto) Eos % (Auto) Baso % (Auto) Lymph # (Auto) [place] # (Auto) Eos # (Auto) Baso # (Auto) Abs Immat Gran (auto) Absolute Neuts (auto) Absolute Nucleated RBC 0.020 H Nucleated RBC % (auto) 0.1 Neutrophils % (Manual) Band Neutrophils % Lymphocytes % (Manual) Monocytes % (Manual) Eosinophils % (Manual) Metamyelocytes % Myelocytes % Abs Neuts (Manual) Lymphocytes # (Manual) Monocytes # (Manual) Eosinophils # (Manual) Metamyelocytes # Myelocytes # Toxic Vacuolation Dohle Bodies Platelet Estimate Plt Morphology Comment RBC Morphology PT 17.2 H INR 1.5 H aPTT Heparin Protocol Anion Gap Estim Creat Clear Calc Estimated GFR Random Glucose Fasting Glucose Lactic Acid Lactic Acid F/U @ 2Hr 1.8 Calcium Magnesium Total Bilirubin Direct Bilirubin AST ALT Alkaline Phosphatase B-Natriuretic Peptide Total Protein Albumin Triglycerides Cholesterol LDL Cholesterol, Calc HDL Cholesterol TSH 04/04/22 04/04/22 05:10 05:10 MCV MCH MCHC RDW Plt Count MPV Immature Gran % (Auto) Neut % (Auto) Lymph % (Auto) [place] % (Auto) Eos % (Auto) Baso % (Auto) Lymph # (Auto) [place] # (Auto) Eos # (Auto) Baso # (Auto) Abs Immat Gran (auto) Absolute Neuts (auto) Absolute Nucleated RBC Nucleated RBC % (auto) Neutrophils % (Manual) Band Neutrophils % Lymphocytes % (Manual) Monocytes % (Manual) Eosinophils % (Manual) Metamyelocytes % Myelocytes % Abs Neuts (Manual) Lymphocytes # (Manual) Monocytes # (Manual) Eosinophils # (Manual) Metamyelocytes # Myelocytes # Toxic Vacuolation Dohle Bodies Platelet Estimate Plt Morphology Comment RBC Morphology PT INR aPTT Heparin Protocol 76.6 D Anion Gap 17 Estim Creat Clear Calc 81.8 Estimated GFR 48 Random Glucose Fasting Glucose 134 H Lactic Acid Lactic Acid F/U @ 2Hr Calcium 7.7 L Magnesium 1.8 Total Bilirubin 1.6 H Direct Bilirubin 0.9 H AST 55 H ALT 48 H Alkaline Phosphatase 83 B-Natriuretic Peptide Total Protein 5.9 L Albumin 2.8 L Triglycerides 155 Cholesterol 110 LDL Cholesterol, Calc 68 HDL Cholesterol 11 TSH Microbiology Microbiology Results: Microbiology 04/02/22 22:28 Blood Culture - Preliminary Blood - Venous Prelim: GPC Gram Stain only 04/02/22 22:28 Blood Culture - Preliminary Blood - Venous Prelim: GPC Gram Stain only Assessment and Plan (1) Cellulitis: Status: Acute Plan 62M with PMH bilateral DVT in 2020, morbid obesity, HTN, hypothryoid, presented with confusion, lle erythema after stopping eliquis metabolic encephalopathy with subacute CVA on CT head neuro appreciated, unable to get mri due to size continue asa, statin, eliquis carotid doppler - negative PT/OT JACY improved with hydration, holding charli-i 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 restart eliquis sepsis (not severe) due to GPC bacteremia, LLE cellulitis continue ancef added vanc until sensitivities follow up repeat TTE poor quality due to size, plan for PETRA tomorrow, npo after midnight ID following elevated bili not due to sepsis fatty liver - likely VALDEZ new onset afib with rvr now back in sinus start metoprolol tartate 50mg bid, continue eliquis elevated troponin doubt ACS, likely cardiac strain morbid obesity weight loss recommended, outpatient EMIGDIO screening HTN holding hctz and charli-i for jacy started on metoprolol for afib hypothyroid synthroid full code reason for continued hospitalization:iv abx for bacteremia, ivf for jacy Quality Stroke Does the patient have a stroke diagnosis?: No VTE Prior VTE?: Yes VTE Risk Level:: Medical - moderate - high VTE Device Contraindication: Treatment Not Indicated VTE Drug Contraindication: N/A - Med Ordered
[2022-04-04] MEDS: Metoprolol Tartrate 50 MG TABLET PO ×2 (10:14→20:23)
[2022-04-04] MEDS: Apixaban 5 MG TABLET PO ×2 (10:14→20:23)
--- NOTE | 2022-04-04 12:08 | P.CDIC_ITS ---
CDI Concurrent Query Documentation Clarification: PHYSICIAN'S DOCUMENTATION REQUEST Date of Query: 04/04/22 1209 Patient Name: David Pollock Admit Date: 04/03/22 Dear Doctor, A review of the medical record indicates additional documentation may be needed. Please review below and update the documentation accordingly. Clinical Indicators: Risk Factors/Clinical Indicators/Treatments T 99.9, HR 96, R 18, BP 111/54 WBC 12.1 Blood culture pending Per MD progress note 04/04/22: sepsis (not severe) due to GPC bacteremia, LLE cellulitis continue ancef added vanc until sensitivities Please clarify based on the above if: * Sepsis was present on admission * Sepsis was not present on admission * Unable to determine Use of terms such as suspected, likely, concern for, or probable (associated with a specific diagnosis that is being evaluated, monitored, or treated as if it exists) are acceptable and can be coded in the inpatient setting, when documented at the time of discharge. Thank you, Nikki Cleveland RN Extension: [phone] Please use your independent medical judgment in providing your response. THIS QUERY IS PART OF THE PERMANENT MEDICAL RECORD Provider Response: Other Other Diagnosis: sepsis present on admission
--- NOTE | 2022-04-04 15:37 | MHC.CM.PN ---
per rounds pt may need a picc line and iv antibiotics and home physical therapy when ready for dc home
[2022-04-04] MEDS: cefTRIAXone sodium 2 GM in 0.9 % Sodium Chloride 50 ML IV (15:40)
[2022-04-05] VITALS (10 sets, daily range): BP systolic 93–139; BP diastolic 53–74; PULSE 71–89; RESP 17–22; TEMP 36.5–37.7; O2SAT 93–98
[2022-04-05] MEDS: cefTRIAXone sodium 2 GM in 0.9 % Sodium Chloride 50 ML IV ×2 (01:40→14:37)
[2022-04-05 06:25] LABS: Hematocrit 33.6 % (42.0-52.0); Hemoglobin 11.2 g/dl (14.0-18.0); Mean Corpuscular HGB Conc 33.3 g/dl (31.0-36.0); Mean Corpuscular Hemoglobin 27.3 pg (27.0-33.0); Mean Corpuscular Volume 81.8 fL (80.0-98.0); Mean Platelet Volume 9.5 fL (9.4-12.4); Platelet Count 182 X10*3/uL (160-400); Red Blood Count 4.11 X10*6/uL (4.60-5.80); Red Cell Distribution Width 15.3 % (11.0-16.0); White Blood Count 14.7 X10*3/uL (4.8-10.8)
[2022-04-05 07:02] LABS: Anion Gap 17 (12-20); Blood Urea Nitrogen 31 mg/dL (9-16); Calcium 7.8 mg/dL (8.4-10.2); Carbon Dioxide 21 mmol/L (22-29); Chloride 103 mmol/L (96-108); Creatinine Clr Calc Pharmacy 109.8; Estimated Glomerular Filt Rate > 60; Glucose Fasting 113 mg/dL (60-99); Potassium 3.7 mmol/L (3.3-5.1); Sodium 137 mmol/L (135-145)
[2022-04-05] MEDS: Apixaban 5 MG TABLET PO ×2 (09:40→20:29)
[2022-04-05] MEDS: Aspirin Enteric Coated 81 MG TABLET.DR PO (09:40)
[2022-04-05] MEDS: Metoprolol Tartrate 50 MG TABLET PO ×2 (09:40→20:29)
[2022-04-05] MEDS: Atorvastatin Calcium 80 MG TABLET PO (09:40)
--- NOTE | 2022-04-05 10:17 | MHC.SHP ---
Pre-Procedural Eval Section A Date of Service: 04/05/22 Section B Chief Complaint: dvt, cellulitis, stroke Allergies: Allergies Allergy/AdvReac Type Severity Reaction Status Date / Time No Known Allergies Allergy Verified 04/02/22 15:00 [No Known Allergies*] Plan I have reviewed the history and physical and performed a pertinent physical examination on my patient. No changes have occurred unless specified.
--- NOTE | 2022-04-05 10:30 | CA_ITS ---
Transesophageal Echocardiogram Patient (Last, First, Middle): David Pollock, Gender: Male Date of : 1960 Age: 62 Procedure Date: 04/05/2022 Procedure Type: Transesophageal Echocardiogram Location: [facility] [place] Height: 182.88 cm Weight: 165.11 kg BSA: 2.75 m2 Heart Rate: 69 bpm BP: 117 / 72 mmHg Ham Boner: TUTU Referring MD: Caleb Macias MD Manager Regional Sales: Caleb Macias MD Symptoms: Endocarditis Conclusion: ??? No obvious valvular pathology seen on this study. ??? There is no evidence of interatrial shunt by agitated saline. Findings Procedure Information Consent was obtained prior to the procedure. The adult 3D probe was passed with no difficulty. Left Ventricle Normal left ventricular cavity size. The left ventricular systolic function is normal. The visually estimated ejection fraction is between 65-70%. There is no evidence of regional wall motion abnormalities. Atria There is no evidence of a thrombus in the left atrial appendage. There is no evidence of interatrial shunt by agitated saline. Bubble study negative during rest and Valsalva. Color Doppler was also negative for interatrial shunt. Aortic Valve There is a normal trileaflet aortic valve. There is mild calcification of the aortic valve. There is no aortic valve stenosis. There is no aortic valve regurgitation. Mitral Valve The mitral valve appears normal. There is trace mitral valve regurgitation. There is no mitral valve stenosis. There is systolic anterior motion of the chordae of the mitral valve. Prominent mitral chords. Pulmonic Valve The pulmonic valve was not well visualized. Tricuspid Valve There is trace tricuspid valve regurgitation. Great Vessels Minimal plaque in the descending thoracic aorta. Venous The inferior vena cava was not well visualized. Pericardium/Pleural There is no evidence of pericardial effusion. Prior Study Comparison No significant change compared to prior study dated: 04/03/2022. Recommendations, Care & Conclusions No obvious valvular pathology seen on this study. Updated by Caleb Macias on 04:12 PM with Status of Final Caleb Macias MD electronically signed on 04/05/2022 4:12:18 PM with status of Final
--- NOTE | 2022-04-05 12:18 | P.PNCA_ITS ---
Subjective Subjective Date of Service: 04/05/22 Interval history: Patient states he feels fine. No cardiac symptoms at this time. Review of Systems Review of Systems Yes all other systems are reviewed and are negative Constitutional: Reports as per HPI Eyes: Reports as per HPI Reports as per HPI Cardiovascular: Reports as per HPI, Denies acrocyanosis, Denies cool extremities, Denies chest pain, Denies leg edema, Denies lightheadedness, Denies palpitations and Denies dyspnea Respiratory: Reports as per HPI, Reports no additional respiratory complaints and Denies dyspnea Gastrointestinal: Reports as per HPI and Reports no additional gastrointestinal complaints Genitourinary: Reports no additional male genitourinary complaints and Reports as per HPI Musculoskeletal: Reports no additional musculoskeletal complaints and Reports as per HPI Skin/Breast: Reports system reviewed and no additional complaints, except as docu Reports system reviewed and no additional complaints, except as documented and Reports as per HPI Psychiatric: Reports no additional psychiatric complaints and Reports as per HPI Endocrine: Reports no additional endocrine complaints, Reports as per HPI and Denies palpitations Hematologic/Lymphatic: Reports no additional hematologic/lymphatic complaints and Reports as per HPI Allergic/Immunologic: Reports no additional allergic/immunologic complaints and Reports as per HPI Physical Exam Vital Signs: Last Vital Signs Temp 98.6 F 04/05/22 11:55 Pulse 71 04/05/22 11:55 Resp 17 04/05/22 11:55 BP 97/65 04/05/22 11:55 Pulse Ox 95 04/05/22 11:55 O2 Del Method 04/05/22 11:55 O2 Flow Rate 6 04/05/22 11:40 BMI result Body Mass Index 49.4 Const General: comfortable and no acute distress Orientation/consciousness: patient oriented x3 HEENT Other: Unremarkable Head: Yes normal to inspection Neck Neck: Yes normal visual inspection Chest Chest palpation & inspection: normal inspection of the chest Resp Auscultation: clear to auscultation bilaterally Cardio Palpation: normal PMI Heart sounds: S1 normal heart sound present, S2 normal heart sound present, no gallops, no murmurs and no rubs GI Palpation (GI): Soft to palpation Back/Spine/Pelvis Other: unremarkable Skin General skin exam: no rashes or lesions noted Neuro General: patient oriented x3 Extrem Other: 2-3+ edema; left leg redness General: Yes normal to inspection Psych Mental Status: mental status grossly normal Objective Labs and Meds Result diagrams: 04/05/22 06:11 04/05/22 06:11 Lab results: Laboratory Results - last 24 hr 04/05/22 04/05/22 06:11 06:11 WBC 14.7 H RBC 4.11 L Hgb 11.2 L Hct 33.6 L MCV 81.8 MCH 27.3 MCHC 33.3 RDW 15.3 Plt Count 182 MPV 9.5 Absolute Nucleated RBC 0.000 Nucleated RBC % (auto) 0.0 Sodium 137 Potassium 3.7 Chloride 103 Carbon Dioxide 21 L Anion Gap 17 BUN 31 H Creatinine 1.11 Estim Creat Clear Calc 109.8 Estimated GFR > 60 Fasting Glucose 113 H Calcium 7.8 L Progress Note: A&P Assessment and plan (1) NSTEMI (non-ST elevated myocardial infarction): Status: Acute Assessment and Plan: High sensitivity troponins are 632 followed by 627. He does not have any symptoms like angina. Will need ischemia workup as an outpatient. On aspirin, statins and Eliquis. Beta-blockers. (2) Atrial fibrillation with rapid ventricular response: Status: Acute Assessment and Plan: He did have a brief episode of atrial fibrillation but back in sinus. Continue beta-blockers. (3) Bacteremia: Status: Acute Assessment and Plan: PETRA does not show any evidence of endocarditis. (4) CVA (cerebral vascular accident): Status: Acute Assessment and Plan: Head CT reported to have right parietal infarct of uncertain chronicity. Carotid ultrasound shows low-grade stenosis. No evidence of PFO on PETRA. No yang ar cardiac source of embolus identified. Could be related to atrial fibrillation. Plan Discussed with Dr. Haynes Time Spent With Patient Time: Total time spent is greater than 50% in coordination of care (as documented) at patient's floor/unit and/or counseling patient: 35min. Progress Note: Quality Stroke Does the patient have a stroke diagnosis?: No Procedures Date of Service Date of Service: 04/05/22
[2022-04-05] MEDS: Lidocaine 4 % Patch ADH..PATCH 2 PATCH TRANSDERMA (12:50)
--- NOTE | 2022-04-05 13:05 | HO.ANESPROP2 ---
HPI - Anesthesia Eval Consult details Narrative: 62 M for PETRA Denies EMIGDIO hx PMFSH Active Problems Active Problems: All Active Problems (Updated 04/04/22 @ 09:24 by Caleb Macias MD) Atrial fibrillation with rapid ventricular response (Acute) Bacteremia (Acute) CVA (cerebral vascular accident) (Acute) NSTEMI (non-ST elevated myocardial infarction) (Acute) Cellulitis (Acute) DVT (deep venous thrombosis) (Acute) Elevated troponin (Acute) JACY (acute kidney injury) (Acute) Status post total hip replacement, right (Acute) Status post total hip replacement, left (Acute) Past Medical History Medical History (Updated 04/04/22 @ 09:24 by Caleb Macias MD) Bacteremia DVT (deep venous thrombosis) Hypertension Hypothyroidism Family History Family History Mother No problems noted. Father Coronary artery disease Family history of problems with anesthesia: No Surgical History Surgical History History of total right hip replacement (~05/23/20) History of Problems with Anesthesia: No Social History Social History Household Members: Spouse Housing: Apartment Do you presently have visiting nurse or other home services: No Alcohol intake: current Alcohol intake frequency: holidays/special occasions only Patient Tobacco Use Status: Never used Tobacco Use of substances other than those prescribed or required for medical reasons: No Currently Displaying Signs/Symptoms of Drug Intoxication Withdrawal: No Any prior treatment program specific to substance use: No Have you been hit, kicked, punched, or otherwise hurt by someone within the past year? 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 Meds Allergies Allergy/AdvReac Type Severity Reaction Status Date / Time No Known Allergies Allergy Verified 04/02/22 15:00 [No Known Allergies*] Active Medications: Current Medications Acetaminophen (Acetaminophen 325 Mg Tablet) 650 mg PO Q6H PRN PRN Reason: Pain, Mild (Pain Scale 1-3) Last Admin: 04/03/22 15:23 Dose: 650 mg Apixaban (Apixaban 5 Mg Tablet) 5 mg PO BID [facility] Last Admin: 04/05/22 09:40 Dose: 5 mg Aspirin (Aspirin Enteric Coated 81 Mg Tablet.Dr) 81 mg PO DAILY [facility] Last Admin: 04/05/22 09:40 Dose: 81 mg Atorvastatin Calcium (Atorvastatin Calcium 80 Mg Tablet) 80 mg PO DAILY [facility] Last Admin: 04/05/22 09:40 Dose: 80 mg Docusate Sodium (Docusate Sodium 100 Mg Capsule) 100 mg PO DAILY PRN PRN Reason: Constipation Ceftriaxone Sodium 2 gm/ (Sodium Chloride) 50 mls @ 100 mls/hr IV Q12H [facility] Last Infusion: 04/05/22 02:44 Dose: Infused Levothyroxine Sodium (Levothyroxine Sodium 50 Mcg Tablet) 50 mcg PO DAILY@0600 [facility] Last Admin: 04/05/22 06:11 Dose: Not Given Lidocaine (Lidocaine 4 % Patch Adh..Patch) 2 patch TRANSDERMA DAILY [facility]; Protocol Last Admin: 04/05/22 12:50 Dose: 2 patch Metoprolol Tartrate (Metoprolol Tartrate 50 Mg Tablet) 50 mg PO BID [facility]; Protocol Last Admin: 04/05/22 09:40 Dose: 50 mg Ondansetron HCl (Ondansetron Hcl 4 Mg/2 Ml Vial) 4 mg IVPUSH Q8H PRN PRN Reason: Nausea and Vomiting Oxycodone HCl (Oxycodone Hcl Immed Release 5 Mg Tablet) 5 mg PO QID PRN PRN Reason: Pain, Moderate (Pain Scale 4-6 Last Admin: 04/04/22 16:50 Dose: 5 mg Pharmacy Consult (Consult Rx Vancomycin Dosing) 1 each MISCELLANE DAILY PRN PRN Reason: Consult order Home Medications Medication Instructions Recorded Confirmed Last Taken Type apixaban 5 mg tablet (Eliquis) 1 tab PO BID 04/03/22 04/03/22 Unknown History levothyroxine 50 mcg tablet 1 tab PO DAILY 04/03/22 04/03/22 Unknown History lisinopril 20 1 tab PO DAILY 04/03/22 04/03/22 Unknown History mg-hydrochlorothiazide 25 mg tablet methocarbamol 750 mg tablet 1 tab PO Q6H PRN muscle spasm 04/03/22 04/03/22 Unknown History oxycodone-acetaminophen 5 mg-325 1 tab PO QID PRN Pain 04/03/22 04/03/22 Unknown History mg tablet Exam Exam Date and Time: April 05, 2022 1305 Height,Weight and Vital Signs: Height 6 ft Weight 364 lb 0.013 oz Last Vital Signs Temp 98.6 F 04/05/22 11:55 Pulse 71 04/05/22 11:55 Resp 17 04/05/22 11:55 BP 97/65 04/05/22 11:55 Pulse Ox 95 04/05/22 11:55 O2 Del Method 04/05/22 11:55 O2 Flow Rate 6 04/05/22 11:40 Pertinent Lab Results Pertinent Lab Results: Laboratory Tests 04/02/22 04/02/22 04/02/22 22:28 22:28 22:28 WBC 11.9 H RBC 4.94 Hgb 13.3 L Hct 40.6 L MCV 82.2 MCH 26.9 L MCHC 32.8 RDW 15.2 Plt Count 199 MPV 9.9 Immature Gran % (Auto) Cancelled Neut % (Auto) Cancelled Lymph % (Auto) Cancelled Angelina % (Auto) Cancelled Eos % (Auto) Cancelled Baso % (Auto) Cancelled Lymph # (Auto) Cancelled Angelina # (Auto) Cancelled Eos # (Auto) Cancelled Baso # (Auto) Cancelled Abs Immat Gran (auto) Cancelled Absolute Neuts (auto) Cancelled Absolute Nucleated RBC 0.020 H Nucleated RBC % (auto) 0.2 Neutrophils % (Manual) 62 Band Neutrophils % 2 L Lymphocytes % (Manual) 13 L Monocytes % (Manual) 16 H Eosinophils % (Manual) 1 Metamyelocytes % 5 Myelocytes % 1 Abs Neuts (Manual) 7.6 Lymphocytes # (Manual) 1.5 Monocytes # (Manual) 1.9 H Eosinophils # (Manual) 0.1 Metamyelocytes # 0.6 Myelocytes # 0.1 Toxic Granulation PRESENT Toxic Vacuolation Dohle Bodies PRESENT Platelet Estimate NORMAL Plt Morphology Comment NORMAL RBC Morphology NORMAL PT 16.0 H INR 1.4 H APTT aPTT Heparin Protocol D-Dimer High Sensitivty 2079 Sodium Potassium Chloride Carbon Dioxide Anion Gap BUN Creatinine Estim Creat Clear Calc Estimated GFR Random Glucose Fasting Glucose Lactic Acid Lactic Acid F/U @ 2Hr Calcium Magnesium Total Bilirubin Direct Bilirubin AST ALT Alkaline Phosphatase Total Creatine Kinase Troponin I High Sens 632.5 H* B-Natriuretic Peptide Total Protein Albumin Triglycerides Cholesterol LDL Cholesterol, Calc HDL Cholesterol TSH Urine Color Urine Appearance Urine pH Ur Specific [place] Urine Protein Urine Glucose (UA) Urine Ketones Urine Blood Urine Nitrite Ur Leukocyte Esterase Urine RBC Urine WBC Ur Squamous Epith Cells Amorphous Sediment Urine Bacteria Urine Mucus COVID-19 ([place]) COVID-19 Clin Com 04/02/22 04/02/22 04/02/22 22:28 22:28 22:28 WBC RBC Hgb Hct MCV MCH MCHC RDW Plt Count MPV Immature Gran % (Auto) Neut % (Auto) Lymph % (Auto) Angelina % (Auto) Eos % (Auto) Baso % (Auto) Lymph # (Auto) Angelina # (Auto) Eos # (Auto) Baso # (Auto) Abs Immat Gran (auto) Absolute Neuts (auto) Absolute Nucleated RBC Nucleated RBC % (auto) Neutrophils % (Manual) Band Neutrophils % Lymphocytes % (Manual) Monocytes % (Manual) Eosinophils % (Manual) Metamyelocytes % Myelocytes % Abs Neuts (Manual) Lymphocytes # (Manual) Monocytes # (Manual) Eosinophils # (Manual) Metamyelocytes # Myelocytes # Toxic Granulation Toxic Vacuolation Dohle Bodies Platelet Estimate Plt Morphology Comment RBC Morphology PT 16.6 H INR 1.4 H APTT 31.4 aPTT Heparin Protocol D-Dimer High Sensitivty Sodium Potassium Chloride Carbon Dioxide Anion Gap BUN Creatinine Estim Creat Clear Calc Estimated GFR Random Glucose Fasting Glucose Lactic Acid Lactic Acid F/U @ 2Hr Calcium Magnesium Total Bilirubin Direct Bilirubin AST ALT Alkaline Phosphatase Total Creatine Kinase Troponin I High Sens B-Natriuretic Peptide 78 Total Protein Albumin Triglycerides Cholesterol LDL Cholesterol, Calc HDL Cholesterol TSH Urine Color Urine Appearance Urine pH Ur Specific [place] Urine Protein Urine Glucose (UA) Urine Ketones Urine Blood Urine Nitrite Ur Leukocyte Esterase Urine RBC Urine WBC Ur Squamous Epith Cells Amorphous Sediment Urine Bacteria Urine Mucus COVID-19 ([place]) Negative COVID-19 Clin Com See Note 04/02/22 04/02/22 04/02/22 22:28 22:28 22:46 WBC RBC Hgb Hct MCV MCH MCHC RDW Plt Count MPV Immature Gran % (Auto) Neut % (Auto) Lymph % (Auto) Angelina % (Auto) Eos % (Auto) Baso % (Auto) Lymph # (Auto) Angelina # (Auto) Eos # (Auto) Baso # (Auto) Abs Immat Gran (auto) Absolute Neuts (auto) Absolute Nucleated RBC Nucleated RBC % (auto) Neutrophils % (Manual) Band Neutrophils % Lymphocytes % (Manual) Monocytes % (Manual) Eosinophils % (Manual) Metamyelocytes % Myelocytes % Abs Neuts (Manual) Lymphocytes # (Manual) Monocytes # (Manual) Eosinophils # (Manual) Metamyelocytes # Myelocytes # Toxic Granulation Toxic Vacuolation Dohle Bodies Platelet Estimate Plt Morphology Comment RBC Morphology PT INR APTT aPTT Heparin Protocol D-Dimer High Sensitivty Sodium Potassium Chloride Carbon Dioxide Anion Gap BUN Creatinine Estim Creat Clear Calc Estimated GFR Random Glucose Fasting Glucose Lactic Acid 1.7 Lactic Acid F/U @ 2Hr Calcium Magnesium Cancelled Total Bilirubin Direct Bilirubin AST ALT Alkaline Phosphatase Total Creatine Kinase Troponin I High Sens B-Natriuretic Peptide Total Protein Albumin Triglycerides Cholesterol LDL Cholesterol, Calc HDL Cholesterol TSH Urine Color YELLOW Urine Appearance CLEAR Urine pH 6.0 Ur Specific [place] 1.015 Urine Protein TRACE Urine Glucose (UA) NEG Urine Ketones NEG Urine Blood TRACE Urine Nitrite NEG Ur Leukocyte Esterase NEG Urine RBC 0 Urine WBC 0 Ur Squamous Epith Cells NONE Amorphous Sediment 1+ Urine Bacteria NONE Urine Mucus 1+ COVID-19 ([place]) COVID-19 Clin Com 04/02/22 04/03/22 04/03/22 23:31 01:20 04:35 WBC 12.1 H RBC 4.52 L Hgb 12.1 L Hct 36.7 L MCV 81.2 MCH 26.8 L MCHC 33.0 RDW 15.2 Plt Count 178 MPV 9.6 Immature Gran % (Auto) Cancelled Neut % (Auto) Cancelled Lymph % (Auto) Cancelled Angelina % (Auto) Cancelled Eos % (Auto) Cancelled Baso % (Auto) Cancelled Lymph # (Auto) Cancelled Angelina # (Auto) Cancelled Eos # (Auto) Cancelled Baso # (Auto) Cancelled Abs Immat Gran (auto) Cancelled Absolute Neuts (auto) Cancelled Absolute Nucleated RBC 0.020 H Nucleated RBC % (auto) 0.2 Neutrophils % (Manual) 77 H Band Neutrophils % 7 H Lymphocytes % (Manual) 8 L Monocytes % (Manual) 7 Eosinophils % (Manual) Metamyelocytes % 1 Myelocytes % Abs Neuts (Manual) 10.2 H Lymphocytes # (Manual) 1.0 L Monocytes # (Manual) 0.8 Eosinophils # (Manual) Metamyelocytes # 0.1 Myelocytes # Toxic Granulation PRESENT Toxic Vacuolation Dohle Bodies PRESENT Platelet Estimate NORMAL Plt Morphology Comment NORMAL RBC Morphology NORMAL PT INR APTT aPTT Heparin Protocol D-Dimer High Sensitivty Sodium 134 L Potassium 3.9 Chloride 98 Carbon Dioxide 23 Anion Gap 17 BUN 55 H Creatinine 1.90 H Estim Creat Clear Calc 51.3 Estimated GFR 36 Random Glucose 130 H Fasting Glucose Lactic Acid Lactic Acid F/U @ 2Hr Calcium 8.6 D Magnesium 1.7 Total Bilirubin 2.4 H Direct Bilirubin AST 68 H ALT 71 H Alkaline Phosphatase 89 D Total Creatine Kinase 122 Troponin I High Sens 627.2 H* B-Natriuretic Peptide Total Protein 6.7 Albumin 3.3 L Triglycerides Cholesterol LDL Cholesterol, Calc HDL Cholesterol TSH Urine Color Urine Appearance Urine pH Ur Specific [place] Urine Protein Urine Glucose (UA) Urine Ketones Urine Blood Urine Nitrite Ur Leukocyte Esterase Urine RBC Urine WBC Ur Squamous Epith Cells Amorphous Sediment Urine Bacteria Urine Mucus COVID-19 ([place]) COVID-19 Clin Com 04/03/22 04/03/22 04/03/22 04:35 08:12 15:14 WBC RBC Hgb Hct MCV MCH MCHC RDW Plt Count MPV Immature Gran % (Auto) Neut % (Auto) Lymph % (Auto) Angelina % (Auto) Eos % (Auto) Baso % (Auto) Lymph # (Auto) Angelina # (Auto) Eos # (Auto) Baso # (Auto) Abs Immat Gran (auto) Absolute Neuts (auto) Absolute Nucleated RBC Nucleated RBC % (auto) Neutrophils % (Manual) Band Neutrophils % Lymphocytes % (Manual) Monocytes % (Manual) Eosinophils % (Manual) Metamyelocytes % Myelocytes % Abs Neuts (Manual) Lymphocytes # (Manual) Monocytes # (Manual) Eosinophils # (Manual) Metamyelocytes # Myelocytes # Toxic Granulation Toxic Vacuolation Dohle Bodies Platelet Estimate Plt Morphology Comment RBC Morphology PT INR APTT aPTT Heparin Protocol 34.1 L 43.7 L D D-Dimer High Sensitivty Sodium 136 Potassium 4.0 Chloride 101 Carbon Dioxide 21 L Anion Gap 18 BUN 50 H Creatinine 1.62 H Estim Creat Clear Calc 60.2 Estimated GFR 43 Random Glucose 121 H Fasting Glucose Lactic Acid Lactic Acid F/U @ 2Hr Calcium 8.3 L Magnesium Total Bilirubin Direct Bilirubin AST ALT Alkaline Phosphatase Total Creatine Kinase Troponin I High Sens B-Natriuretic Peptide Total Protein Albumin Triglycerides Cholesterol LDL Cholesterol, Calc HDL Cholesterol TSH Urine Color Urine Appearance Urine pH Ur Specific [place] Urine Protein Urine Glucose (UA) Urine Ketones Urine Blood Urine Nitrite Ur Leukocyte Esterase Urine RBC Urine WBC Ur Squamous Epith Cells Amorphous Sediment Urine Bacteria Urine Mucus COVID-19 ([place]) COVID-19 Clin Com 04/03/22 04/03/22 04/03/22 22:03 22:03 22:03 WBC 16.3 H RBC 4.52 L Hgb 12.2 L Hct 36.9 L MCV 81.6 MCH 27.0 MCHC 33.1 RDW 15.3 Plt Count 184 MPV 9.7 Immature Gran % (Auto) Cancelled Neut % (Auto) Cancelled Lymph % (Auto) Cancelled Angelina % (Auto) Cancelled Eos % (Auto) Cancelled Baso % (Auto) Cancelled Lymph # (Auto) Cancelled Angelina # (Auto) Cancelled Eos # (Auto) Cancelled Baso # (Auto) Cancelled Abs Immat Gran (auto) Cancelled Absolute Neuts (auto) Cancelled Absolute Nucleated RBC 0.020 H Nucleated RBC % (auto) 0.1 Neutrophils % (Manual) 72 Band Neutrophils % 8 H Lymphocytes % (Manual) 7 L Monocytes % (Manual) 5 Eosinophils % (Manual) 2 Metamyelocytes % 5 Myelocytes % 1 Abs Neuts (Manual) 13.0 H Lymphocytes # (Manual) 1.1 L Monocytes # (Manual) 0.8 Eosinophils # (Manual) 0.3 Metamyelocytes # 0.8 Myelocytes # 0.2 Toxic Granulation Toxic Vacuolation PRESENT Dohle Bodies PRESENT Platelet Estimate NORMAL Plt Morphology Comment NORMAL RBC Morphology NORMAL PT INR APTT aPTT Heparin Protocol 50.3 L D-Dimer High Sensitivty Sodium 133 L Potassium 3.6 Chloride 99 Carbon Dioxide 19 L Anion Gap 19 BUN 40 H Creatinine 1.63 H Estim Creat Clear Calc 74.8 Estimated GFR 43 Random Glucose 148 H Fasting Glucose Lactic Acid Lactic Acid F/U @ 2Hr Calcium 7.6 L D Magnesium 1.4 L* Total Bilirubin Direct Bilirubin AST ALT Alkaline Phosphatase Total Creatine Kinase Troponin I High Sens B-Natriuretic Peptide Total Protein Albumin Triglycerides Cholesterol LDL Cholesterol, Calc HDL Cholesterol TSH 7.32 H Urine Color Urine Appearance Urine pH Ur Specific [place] Urine Protein Urine Glucose (UA) Urine Ketones Urine Blood Urine Nitrite Ur Leukocyte Esterase Urine RBC Urine WBC Ur Squamous Epith Cells Amorphous Sediment Urine Bacteria Urine Mucus COVID-19 ([place]) COVID-19 [employer] Com 04/03/22 04/03/22 04/04/22 22:03 22:03 00:49 WBC RBC Hgb Hct MCV MCH MCHC RDW Plt Count MPV Immature Gran % (Auto) Neut % (Auto) Lymph % (Auto) Angelina % (Auto) Eos % (Auto) Baso % (Auto) Lymph # (Auto) Angelina # (Auto) Eos # (Auto) Baso # (Auto) Abs Immat Gran (auto) Absolute Neuts (auto) Absolute Nucleated RBC Nucleated RBC % (auto) Neutrophils % (Manual) Band Neutrophils % Lymphocytes % (Manual) Monocytes % (Manual) Eosinophils % (Manual) Metamyelocytes % Myelocytes % Abs Neuts (Manual) Lymphocytes # (Manual) Monocytes # (Manual) Eosinophils # (Manual) Metamyelocytes # Myelocytes # Toxic Granulation Toxic Vacuolation Dohle Bodies Platelet Estimate Plt Morphology Comment RBC Morphology PT INR APTT aPTT Heparin Protocol D-Dimer High Sensitivty Sodium Potassium Chloride Carbon Dioxide Anion Gap BUN Creatinine Estim Creat Clear Calc Estimated GFR Random Glucose Fasting Glucose Lactic Acid 2.1 H* Lactic Acid F/U @ 2Hr 1.8 Calcium Magnesium Total Bilirubin Direct Bilirubin AST ALT Alkaline Phosphatase Total Creatine Kinase Troponin I High Sens 360.9 H* B-Natriuretic Peptide 192 H Total Protein Albumin Triglycerides Cholesterol LDL Cholesterol, Calc HDL Cholesterol TSH Urine Color Urine Appearance Urine pH Ur Specific [place] Urine Protein Urine Glucose (UA) Urine Ketones Urine Blood Urine Nitrite Ur Leukocyte Esterase Urine RBC Urine WBC Ur Squamous Epith Cells Amorphous Sediment Urine Bacteria Urine Mucus COVID-19 ([place]) COVID-19 Clin Com 04/04/22 04/04/22 04/04/22 05:10 05:10 05:10 WBC 18.2 H RBC 4.23 L Hgb 11.3 L Hct 34.4 L MCV 81.3 MCH 26.7 L MCHC 32.8 RDW 15.3 Plt Count 172 MPV 9.6 Immature Gran % (Auto) Neut % (Auto) Lymph % (Auto) Angelina % (Auto) Eos % (Auto) Baso % (Auto) Lymph # (Auto) Angelina # (Auto) Eos # (Auto) Baso # (Auto) Abs Immat Gran (auto) Absolute Neuts (auto) Absolute Nucleated RBC 0.020 H Nucleated RBC % (auto) 0.1 Neutrophils % (Manual) Band Neutrophils % Lymphocytes % (Manual) Monocytes % (Manual) Eosinophils % (Manual) Metamyelocytes % Myelocytes % Abs Neuts (Manual) Lymphocytes # (Manual) Monocytes # (Manual) Eosinophils # (Manual) Metamyelocytes # Myelocytes # Toxic Granulation Toxic Vacuolation Dohle Bodies Platelet Estimate Plt Morphology Comment RBC Morphology PT 17.2 H INR 1.5 H APTT aPTT Heparin Protocol D-Dimer High Sensitivty Sodium 132 L Potassium 3.9 Chloride 100 Carbon Dioxide 19 L Anion Gap 17 BUN 37 H Creatinine 1.49 H Estim Creat Clear Calc 81.8 Estimated GFR 48 Random Glucose Fasting Glucose 134 H Lactic Acid Lactic Acid F/U @ 2Hr Calcium 7.7 L Magnesium 1.8 Total Bilirubin 1.6 H Direct Bilirubin 0.9 H AST 55 H ALT 48 H Alkaline Phosphatase 83 Total Creatine Kinase Troponin I High Sens B-Natriuretic Peptide Total Protein 5.9 L Albumin 2.8 L Triglycerides 155 Cholesterol 110 LDL Cholesterol, Calc 68 HDL Cholesterol 11 TSH Urine Color Urine Appearance Urine pH Ur Specific [place] Urine Protein Urine Glucose (UA) Urine Ketones Urine Blood Urine Nitrite Ur Leukocyte Esterase Urine RBC Urine WBC Ur Squamous Epith Cells Amorphous Sediment Urine Bacteria Urine Mucus COVID-19 ([place]) COVID-19 Clin Com 04/04/22 04/05/22 04/05/22 05:10 06:11 06:11 WBC 14.7 H RBC 4.11 L Hgb 11.2 L Hct 33.6 L MCV 81.8 MCH 27.3 MCHC 33.3 RDW 15.3 Plt Count 182 MPV 9.5 Immature Gran % (Auto) Neut % (Auto) Lymph % (Auto) Angelina % (Auto) Eos % (Auto) Baso % (Auto) Lymph # (Auto) Angelina # (Auto) Eos # (Auto) Baso # (Auto) Abs Immat Gran (auto) Absolute Neuts (auto) Absolute Nucleated RBC 0.000 Nucleated RBC % (auto) 0.0 Neutrophils % (Manual) Band Neutrophils % Lymphocytes % (Manual) Monocytes % (Manual) Eosinophils % (Manual) Metamyelocytes % Myelocytes % Abs Neuts (Manual) Lymphocytes # (Manual) Monocytes # (Manual) Eosinophils # (Manual) Metamyelocytes # Myelocytes # Toxic Granulation Toxic Vacuolation Dohle Bodies Platelet Estimate Plt Morphology Comment RBC Morphology PT INR APTT aPTT Heparin Protocol 76.6 D D-Dimer High Sensitivty Sodium 137 Potassium 3.7 Chloride 103 Carbon Dioxide 21 L Anion Gap 17 BUN 31 H Creatinine 1.11 Estim Creat Clear Calc 109.8 Estimated GFR > 60 Random Glucose Fasting Glucose 113 H Lactic Acid Lactic Acid F/U @ 2Hr Calcium 7.8 L Magnesium Total Bilirubin Direct Bilirubin AST ALT Alkaline Phosphatase Total Creatine Kinase Troponin I High Sens B-Natriuretic Peptide Total Protein Albumin Triglycerides Cholesterol LDL Cholesterol, Calc HDL Cholesterol TSH Urine Color Urine Appearance Urine pH Ur Specific [place] Urine Protein Urine Glucose (UA) Urine Ketones Urine Blood Urine Nitrite Ur Leukocyte Esterase Urine RBC Urine WBC Ur Squamous Epith Cells Amorphous Sediment Urine Bacteria Urine Mucus COVID-19 ([place]) COVID-19 Clin Com Airway Mallampati Class: II TM Dist: >3cm Neck ROM: Full Loose/Missing/Broken Teeth: Yes Assessment and Plan Assessment Anesthesia Assessment: Anesthesia Plan Discussed Final Anesthetic Review Family History of Problems with Anesthesia: No History of Problems with Anesthesia: No NPO: Yes ASA Class: III Final Preanesthetic Review: No Changes in Pt Med Stat, Meds/Allgs Chart Reviewed, Consent Obtained/Reviewed and Anes Risks/Benef Reviewed Patient Risk: High Procedure Risk: Low Anesthetic Plan Anesthetic Plan: MAC: Disposition: Standard PACU
--- NOTE | 2022-04-05 15:10 | P.DS_ITS ---
DS: Providers Provider Date of Service: 04/05/22 Date of admission: 04/03/22 03:11 Primary care physician: Unknown Physician Consults: 04/03/22 03:11 Consult to Neurology Routine Consulting Provider: [facility] Reason for consultation: stroke 04/03/22 06:44 Consult to Cardiology Routine Consulting Provider: Caleb Macias Reason for consultation: elevated trop Has provider been notified: No 04/03/22 09:56 Consult to Infectious Diseases Routine Consulting Provider: Kristen Martinez Reason for consultation: gpc 2/ DS: Diagnosis Discharge Diagnosis (1) NSTEMI (non-ST elevated myocardial infarction): Status: Acute (2) Atrial fibrillation with rapid ventricular response: Status: Acute (3) Bacteremia: Status: Acute (4) CVA (cerebral vascular accident): Status: Acute (5) JACY (acute kidney injury): Status: Acute (6) DVT (deep venous thrombosis): Status: Acute (7) Cellulitis: Status: Acute DS: Summary Hospital Course Hospital Course: Admission note HPI ?this is a 62-year-old male with 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 on his shoulder from a standing position while at a 26 of February [facility].? Patient reports that since then he has had constant worsening pain of his ? Right shoulder. his is also concerned that since last week he has become more forgetful, his family of noticed some change in his speech as he has difficulty finding words.? He has also had unusual behavior like forgetting to take his medications although pain is shunt denies any of this, he is completely alert oriented to self place and time, he is able to give sore history, he tells me that he forgot his medications at? work and that was the reason why he forget to take them, he also reports that he? Noticed redness of his left lower extremity over the weekend. ? He denies having any numbness, tingling, or weakness in his arms or lower extremities.? He reports no slurred speech, no change in vision or headache. ?He denies any chest pain at this time? Or in previous days. ?he denies any fever or chills, no chest pain, no palpitations, no abdominal pain nausea or vomiting, no diarrhea constipation. ? On arrival to the ED patient was found to be hemodynamically stable no significant abnormal vitals Labs are significant for WBC count of 11.9, hemoglobin of 13.3, hematocrit 40.6, PT of 16, INR of 1.4, D-dimer 2079, sodium of 134, BUN of 55, creatinine of 1.90 with a baseline around 18 and 0.83 respectively,? bili of 2.4, AST of 68, ALT of 71, troponin of 632 with a repeat of 627, BNP of 78, UA negative, EKG shows normal sinus rate with? no significant ST T-wave elevation or depression, with ?possible CT Q-waves in V5 and V6 ?venous duplex of lower extremities also showed right occlusive thrombus within the femoral vein at the mid to distal aspect through the popliteal vein, on the left partially occlusive thrombus in the femoral vein chronic appearing. ?head CT also shows area of hypoattenuation with loss of robertson to white matter differentiation involving the right parietal lobe suggesting of an infarct of uncertain chronicity this could be acute/subacute ? Patient is started on heparin drip and will be admitted for further management Hospital course The patient was evaluated for presentation with confusion and erythema and lower extremities. Ultrasound the emergency confirmed in evidence of bilateral DVT secondary to stoppage taking Eliquis at home. Was restarted on blood thinners. Noted to have confusion. CT scan of the head was concerning for subacute CVA. Unable to get MRI due to the size of the patient. Neurology evaluated and recommended starting aspirin and statin along with Eliquis. Seen by Physical therapy who recommended home PT. Noted to have acute kidney injury which improved back to his normal baseline with IV fluids. Had sepsis due to Streptococcus bacteremia from left lower extremity cellulitis. Evaluated by infectious disease as PETRA was done to rule out any endocarditis and came back negative. Treated with IV vancomycin as final blood cultures showed an evidence of Streptococcus Aga bacteremia. Id recommended Ceftin at time of discharge. Developed new onset atrial fibrillation with rapid ventricular response. Converted back to sinus rhythm using metoprolol. Will be on Eliquis lifelong. Advised to do an outpatient EMIGDIO screening with his sleep study. Continue Eliquis as prescribed. Do not stop it again. Continue aspirin, statin as prescribed for secondary prevention of stroke. Continue metoprolol for rate control of atrial fibrillation. Finished 12 more days of Ceftin as an antibiotic for bacteremia. To follow up with Cardiology as outpatient. To follow-up with PCP to arrange for a sleep study as outpatient. Time Spent with Patient Time attestation: Total time spent providing and/or coordinating discharge services: Discharge coordination time: Greater than 30 minutes Quality: Safe Use of Opioids Does Pt have an Active Cancer Diagnosis on the Problem List?: No Quality: Stroke Does the patient have a stroke diagnosis?: Yes Reason for No Anti-thrombotic at DC: N/A - Med Ordered Reason for No Anticoagulant at DC: N/A - Med Ordered Reason Not Initiating IV-Tpa: Not indicated Reason for No Anti-thrombotic by Day Two: N/A - Med Ordered Reason for No Statin at DC: N/A - Med Ordered Physical Exam Vital Signs: Vital Signs: Last Vital Signs Temp 98.6 F 04/05/22 11:55 Pulse 71 04/05/22 11:55 Resp 17 04/05/22 11:55 BP 97/65 04/05/22 11:55 Pulse Ox 95 04/05/22 11:55 O2 Del Method 04/05/22 11:55 O2 Flow Rate 6 04/05/22 11:40 BMI result Body Mass Index 49.4 DS: Data Data Completed and Pending Labs on day of discharge: Laboratory Results - last 24 hr 04/05/22 04/05/22 06:11 06:11 WBC 14.7 H RBC 4.11 L Hgb 11.2 L Hct 33.6 L MCV 81.8 MCH 27.3 MCHC 33.3 RDW 15.3 Plt Count 182 MPV 9.5 Absolute Nucleated RBC 0.000 Nucleated RBC % (auto) 0.0 Sodium 137 Potassium 3.7 Chloride 103 Carbon Dioxide 21 L Anion Gap 17 BUN 31 H Creatinine 1.11 Estim Creat Clear Calc 109.8 Estimated GFR > 60 Fasting Glucose 113 H Calcium 7.8 L Preliminary micro results at discharge 04/02/22 22:28 Blood Culture - Preliminary Blood - Venous Strep agalactiae (Grp B) 04/04/22 05:10 Blood Culture - Preliminary Blood - Venous No growth after 24 hours. 04/04/22 05:10 Blood Culture - Preliminary Blood - Venous No growth after [address] scan - head: Radiologist's impression: ITS Impressions Venous Duplex 04/02/22 23:03 IMPRESSION: On the right, occlusive thrombus within the femoral vein at the mid to distal aspect through the popliteal vein. On the left, partially occlusive thrombus in the femoral vein, chronic appearing. This critical result was discussed with Merline Mock MD by telephone at 04/02/2022 11:24 PM and it was ascertained that the content and urgency of the report was understood at the time of direct communication. Head CT 04/03/22 00:10 IMPRESSION: No intracranial hemorrhage. Area of hypoattenuation with loss of robertson to white matter differentiation involving the right parietal lobe, suggestive of infarct of uncertain chronicity. This could be acute/subacute. No prior for comparison. Pulmonary Perfusion Imaging 04/03/22 09:30 IMPRESSION: Very low probability of pulmonary embolism. Dilated cardiomediastinal silhouette. Abdomen Ultrasound 04/03/22 11:05 IMPRESSION: Enlarged echogenic liver and enlarged spleen. Limited visualization of the pancreas, aorta and IVC Carotid Doppler Study 04/03/22 11:27 IMPRESSION: Limited exam. 1. RIGHT: Calcified plaque and mild 0-49% right ICA stenosis. Right vertebral artery not seen. 2. LEFT: Calcified plaque and mild 0-49% left ICA stenosis. Left vertebral artery not seen. Discharge Plan Discharge Patient Disposition: Home Health Service Discharge Diagnosis: Streptococcus bacteremia NSTEMI DVT Referrals: Physician,Unknown J [Primary Care Provider] - 1 Week Discharge Medications: New atorvastatin 80 mg Tablet 80 mg PO DAILY 30 Days Qty: 30 0RF lidocaine [Lidocaine Pain Relief] 4 % Adhesive Patch,Medicated 2 patch transdermal DAILY Qty: 15 0RF Protocol: Apply to: Apply to: back aspirin 81 mg Tablet,Delayed Release (Dr/Ec) 81 mg PO DAILY 30 Days Qty: 30 0RF metoprolol tartrate 50 mg Tablet 50 mg PO BID 30 Days Qty: 60 0RF Protocol: Hold for SBP/HR < HOLD for SBP < : 90 HOLD for HR < : 60 cefuroxime axetil 500 mg tablet 500 mg PO BID Qty: 24 0RF Continued oxycodone-acetaminophen 5-325 mg tablet 1 tab PO QID PRN (Reason: Pain) levothyroxine 50 mcg tablet 1 tab PO DAILY lisinopril-hydrochlorothiazide 20-25 mg tablet 1 tab PO DAILY methocarbamol 750 mg tablet 1 tab PO Q6H PRN (Reason: muscle spasm) Changed Eliquis 5 mg tablet 5 mg PO BID 30 Days Qty: 60 0RF Discharge Orders: Discharge Order (Routine); Ordered 04/05/22 Ordered By: Kasey Haynes Diet: Advance to usual diet Activity on Discharge: As tolerated Stand Alone Forms: Patient Portal Discharge page Care Plan Goals: Read below Health Concerns: Read below Plan of Treatment: Read below Assessment: You were admitted to the hospital for evaluation of confusion, erythema in lower extremity. You were found to have an evidence of deep vein thrombosis in your lower extremities. Treated with blood thinners with good response. CT scan of the head was concerning for subacute stroke that was evaluated by Neurology who recommended treatment with aspirin, statin as you were evaluated by Physical therapy who recommended home physical therapy. Blood cultures grew Streptococcus. Believed to be secondary to cellulitis of lower extremity. Evaluated by infectious disease specialist who recommended to finish total of 2 weeks of antibiotics. Developed a new onset atrial fibrillation. Rate controlled and returned back to sinus rhythm as you were seen by cardiology team. Started on metoprolol. Continue Eliquis as prescribed. Do not stop it again. Continue aspirin, statin as prescribed for secondary prevention of stroke. Continue metoprolol for rate control of atrial fibrillation. Finished 12 more days of Ceftin as an antibiotic for bacteremia. To follow up with Cardiology as outpatient. To follow-up with PCP to arrange for a sleep study as outpatient.
--- NOTE | 2022-04-05 18:23 | P.PNIM_ITS ---
Subjective Subjective Date of Service: 04/05/22 Interval History: Having back pain Review of Systems Review of Systems: Yes all other systems are reviewed and are negative Physical Exam Vital Signs: Vital Signs: Last Vital Signs Temp 97.8 F 04/05/22 15:51 Pulse 80 04/05/22 15:51 Resp 17 04/05/22 15:51 BP 126/60 04/05/22 15:51 Pulse Ox 93 04/05/22 15:51 O2 Del Method 04/05/22 15:51 O2 Flow Rate 6 04/05/22 11:40 BMI result Body Mass Index 49.4 Const: Other: Constitutional : Alert, oriented, not in distress Neck : Normal inspection, Supple Cardiovascular : RRR, no JVP, no lower extremity edema Respiratory : fair bilateral air entry, no crackles, wheezes or rhonchi Gastrointestinal: soft, lax, Normal bowel sounds, Non tender Skin : Warm, Dry Neurological : Alert & oriented x3, No focal deficit , CN 2-12 within normal Objective Data Active Medications Acetaminophen (Acetaminophen 325 Mg Tablet) 650 mg PO Q6H PRN PRN Reason: Pain, Mild (Pain Scale 1-3) Last Admin: 04/03/22 15:23 Dose: 650 mg Documented By: ESPERANZA Apixaban (Apixaban 5 Mg Tablet) 5 mg PO BID ON LICENSE OF [facility] Last Admin: 04/05/22 09:40 Dose: 5 mg Documented By: TY Aspirin (Aspirin Enteric Coated 81 Mg Tablet.) 81 mg PO DAILY ON LICENSE OF [facility] Last Admin: 04/05/22 09:40 Dose: 81 mg Documented By: TY Atorvastatin Calcium (Atorvastatin Calcium 80 Mg Tablet) 80 mg PO DAILY ON LICENSE OF [facility] Last Admin: 04/05/22 09:40 Dose: 80 mg Documented By: TY Docusate Sodium (Docusate Sodium 100 Mg Capsule) 100 mg PO DAILY PRN PRN Reason: Constipation Ceftriaxone Sodium 2 gm/ (Sodium Chloride) 50 mls @ 100 mls/hr IV Q12H ON LICENSE OF [facility] Last Infusion: 04/05/22 15:21 Dose: 100 mls/hr Documented By: TY Levothyroxine Sodium (Levothyroxine Sodium 50 Mcg Tablet) 50 mcg PO DAILY@0600 ON LICENSE OF [facility] Last Admin: 04/05/22 06:11 Dose: Not Given Documented By: PATY Non-Admin Reason: NPO Lidocaine (Lidocaine 4 % Patch Adh..Patch) 2 patch TRANSDERMA DAILY ON LICENSE OF [facility]; Protocol Last Admin: 04/05/22 12:50 Dose: 2 patch Documented By: TY Metoprolol Tartrate (Metoprolol Tartrate 50 Mg Tablet) 50 mg PO BID ON LICENSE OF [facility]; Protocol Last Admin: 04/05/22 09:40 Dose: 50 mg Documented By: TY Ondansetron HCl (Ondansetron Hcl 4 Mg/2 Ml Vial) 4 mg IVPUSH Q8H PRN PRN Reason: Nausea and Vomiting Oxycodone HCl (Oxycodone Hcl Immed Release 5 Mg Tablet) 5 mg PO QID PRN PRN Reason: Pain, Moderate (Pain Scale 4-6 Last Admin: 04/04/22 16:50 Dose: 5 mg Documented By: MELITON Pharmacy Consult (Consult Rx Vancomycin Dosing) 1 each MISCELLANE DAILY PRN PRN Reason: Consult order Labs CBC & Chem 7: 04/05/22 06:11 04/05/22 06:11 Labs: Laboratory Results - last 24 hr 04/05/22 04/05/22 06:11 06:11 MCV 81.8 MCH 27.3 MCHC 33.3 RDW 15.3 Plt Count 182 MPV 9.5 Absolute Nucleated RBC 0.000 Nucleated RBC % (auto) 0.0 Anion Gap 17 Estim Creat Clear Calc 109.8 Estimated GFR > 60 Fasting Glucose 113 H Calcium 7.8 L Microbiology Microbiology Results: Microbiology 04/02/22 22:28 Blood Culture - Preliminary Blood - Venous Strep agalactiae (Grp B) 04/02/22 22:28 Blood Culture - Final Blood - Venous Strep agalactiae (Grp B) 04/04/22 05:10 Blood Culture - Preliminary Blood - Venous No growth after 24 hours. 04/04/22 05:10 Blood Culture - Preliminary Blood - Venous No growth after 24 hours. Assessment and Plan (1) Atrial fibrillation with rapid ventricular response: Status: Acute (2) Bacteremia: Status: Acute Plan The patient was evaluated for presentation with confusion and erythema and lower extremities.? Ultrasound the emergency confirmed in evidence of bilateral DVT secondary to stoppage taking Eliquis at home.? Was restarted on blood thinners.? Noted to have confusion.? CT scan of the head was concerning for subacute CVA.? Unable to get MRI due to the size of the patient.? Neurology evaluated and recommended starting aspirin and statin along with Eliquis.? Seen by Physical therapy who recommended home PT.? Noted to have acute kidney injury which improved back to his normal baseline with IV fluids.? Had sepsis due to Streptococcus bacteremia from left lower extremity cellulitis.? Evaluated by infectious disease as PETRA was done to rule out any endocarditis and came back negative.? Treated with IV vancomycin as final blood cultures showed an evidence of Streptococcus Aga bacteremia.? Id recommended Ceftin at time of discharge. Developed new onset atrial fibrillation with rapid ventricular response.? Converted back to sinus rhythm using metoprolol.? Will be on Eliquis lifelong. Advised to do an outpatient EMIGDIO screening with his sleep study. Had PETRA which was negative for any vegetations Finalized with culture growing Streptococcus Antibiotics changed to Ceftin. The patient could not be discharged as he reports feeling unsafe to go home tonight as he will some supported by tomorrow. Will keep him overnight with plan to discharge in the morning. Quality Stroke Does the patient have a stroke diagnosis?: Yes Reason for No Anti-thrombotic by Day Two: N/A - Med Ordered VTE Prior VTE?: Yes VTE Risk Level:: Medical - moderate - high VTE Device Contraindication: Treatment Not Indicated VTE Drug Contraindication: N/A - Med Ordered
[2022-04-05] MEDS: oxyCODONE HCl Immed Release 5 MG TABLET PO (18:37)
[2022-04-06] VITALS: BP 130/62; PULSE 77; RESP 18; TEMP 37; O2SAT 95
[2022-04-06] MEDS: cefTRIAXone sodium 2 GM in 0.9 % Sodium Chloride 50 ML IV (01:05)
[2022-04-06 04:00] VITALS: BP 134/62; PULSE 77; RESP 18; TEMP 36.4; O2SAT 94
[2022-04-06] MEDS: Levothyroxine Sodium 50 MCG TABLET PO (06:08)
[2022-04-06 06:39] LABS: Estimated Glomerular Filt Rate > 60
[2022-04-06 07:44] VITALS: BP 130/81; PULSE 83; RESP 16; TEMP 36.8; O2SAT 93
[2022-04-06] MEDS: Aspirin Enteric Coated 81 MG TABLET.DR PO (08:31)
[2022-04-06] MEDS: Lidocaine 4 % Patch ADH..PATCH 2 PATCH TRANSDERMA (08:31)
[2022-04-06] MEDS: Apixaban 5 MG TABLET PO (08:31)
[2022-04-06] MEDS: Atorvastatin Calcium 80 MG TABLET PO (08:31)
[2022-04-06] MEDS: Metoprolol Tartrate 50 MG TABLET PO (08:32)
--- NOTE | 2022-04-06 10:11 | MHC.CM.PN ---
pt dcd today hvns notied of same pt has own transport home
--- NOTE | 2022-04-06 10:31 | MHC.STROKE ---
PATIENT WALK-IN TO ED 04/02/22 AT 1433, SEE ED PROVIDER NOTES, CT REVEALED SUB-ACUTE STROKE, SEEN BY DR RUSSELL SEE HIS NOTE. [place] [facility] [place]. DIAGNOSED WITH NEW AFIB, HE WILL REMAIN ON ELIQUIS. STROKE EDUCATION PROVIDED, HE WILL RECEIVE REHAB AT HOME. ALL STROKE MEASURES MET. PREPARING FOR DISCHARGE HOME.
--- NOTE | 2022-04-06 10:31 | HO.POSTANES ---
Post Anesthesia Evaluation Post Anesthesia Evaluation Vital Signs: Vital Signs Temp Pulse Resp BP Pulse Ox O2 Del Method 04/06/22 07:44 98.2 F 83 16 130/81 93 Room Air 04/06/22 04:00 97.5 F 77 18 134/62 94 Room Air 04/06/22 00:00 98.6 F 77 18 130/62 95 Room Air Anesthesia: Monitored Mental Status: Awake Pain Control: Satisfactory Nausea/Vomiting: None Hydration: Adequate Anesthesia-Related Issues: No Anes. Related Issues
--- NOTE | 2022-04-06 10:52 | PM.PNCARD ---
Subjective Subjective Date of Service: 04/06/22 Interval history: He states that he feels good. No specific complaints. Review of Systems Review of Systems Yes all other systems are reviewed and are negative Constitutional: Reports as per HPI Eyes: Reports as per HPI Reports as per HPI Cardiovascular: Reports as per HPI, Denies acrocyanosis, Denies cool extremities, Denies chest pain, Denies leg edema, Denies lightheadedness, Denies palpitations and Denies dyspnea Respiratory: Reports as per HPI, Reports no additional respiratory complaints and Denies dyspnea Gastrointestinal: Reports as per HPI and Reports no additional gastrointestinal complaints Genitourinary: Reports no additional male genitourinary complaints and Reports as per HPI Musculoskeletal: Reports no additional musculoskeletal complaints and Reports as per HPI Skin/Breast: Reports system reviewed and no additional complaints, except as docu Reports system reviewed and no additional complaints, except as documented and Reports as per HPI Psychiatric: Reports no additional psychiatric complaints and Reports as per HPI Endocrine: Reports no additional endocrine complaints, Reports as per HPI and Denies palpitations Hematologic/Lymphatic: Reports no additional hematologic/lymphatic complaints and Reports as per HPI Allergic/Immunologic: Reports no additional allergic/immunologic complaints and Reports as per HPI Physical Exam Vital Signs: Last Vital Signs Temp 98.2 F 04/06/22 07:44 Pulse 83 04/06/22 07:44 Resp 16 04/06/22 07:44 BP 130/81 04/06/22 07:44 Pulse Ox 93 04/06/22 07:44 O2 Del Method 04/06/22 07:44 O2 Flow Rate 6 04/05/22 11:40 BMI result Body Mass Index 49.4 Const General: comfortable and no acute distress Orientation/consciousness: patient oriented x3 HEENT Other: Unremarkable Head: Yes normal to inspection Neck Neck: Yes normal visual inspection Chest Chest palpation & inspection: normal inspection of the chest Resp Auscultation: clear to auscultation bilaterally Cardio Palpation: normal PMI Heart sounds: S1 normal heart sound present, S2 normal heart sound present, no gallops, no murmurs and no rubs GI Palpation (GI): Soft to palpation Back/Spine/Pelvis Other: unremarkable Skin General skin exam: no rashes or lesions noted Neuro General: patient oriented x3 Extrem Other: 2-3+ edema; left leg redness General: Yes normal to inspection Psych Mental Status: mental status grossly normal Objective Labs and Meds Result diagrams: 04/05/22 06:11 04/06/22 05:57 Lab results: Laboratory Results - last 24 hr 04/06/22 05:57 Creatinine 0.96 Estim Creat Clear Calc 127.0 Estimated GFR > 60 Progress Note: A&P Assessment and plan (1) NSTEMI (non-ST elevated myocardial infarction): Status: Acute Assessment and Plan: Clinically, he has no symptoms at all. Continue medical therapy as currently on. Will arrange outpatient follow-up and testing. (2) Atrial fibrillation with rapid ventricular response: Status: Acute Assessment and Plan: He did have a brief episode of atrial fibrillation but back in sinus. Continue beta-blockers. Already on anticoagulation. (3) Bacteremia: Status: Acute Assessment and Plan: PETRA does not show any evidence of endocarditis. (4) CVA (cerebral vascular accident): Status: Acute Assessment and Plan: Head CT reported to have right parietal infarct of uncertain chronicity. Carotid ultrasound shows low-grade stenosis. No evidence of PFO on PETRA. No clear cardiac source of embolus identified. Could be related to atrial fibrillation. Plan Discussed with Dr. Haynes. Had a long discussion with his as well. Time Spent With Patient Time: Total time spent is greater than 50% in coordination of care (as documented) at patient's floor/unit and/or counseling patient: 35min. Progress Note: Quality Stroke Does the patient have a stroke diagnosis?: Yes Reason for No Anti-thrombotic by Day Two: N/A - Med Ordered Procedures Date of Service Date of Service: 04/06/22
== END 2022-04-06 11:35 | disposition home health service (06) | DRG 720 ==
LOC: HO.ED 04-03 00:07 → HO.EDOVER 04-03 03:19 → HO.IMC 04-03 04:20
PROVIDERS: Internal Medicine; Admitting Provider Internal Medicine; Emergency Provider Emergency Medicine; PCP Physician Assistant; Visit Provider Student in an Organized Health Care Education/Training Program
PROC: B24BZZ4 Ultrasonography of Heart with Aorta, Transesophageal (ICD-10-PCS; CPT 93312; principal; 2022-04-05 10:30)
DX: A41.9 Sepsis, unspecified organism (principal); I63.9 Cerebral infarction, unspecified; I21.4 Non-ST elevation (NSTEMI) myocardial infarction; G93.41 Metabolic encephalopathy; N17.9 Acute kidney failure, unspecified; I82.411 Acute embolism and thrombosis of right femoral vein; Z68.42 Body mass index [BMI] 45.0-49.9, adult; L03.116 Cellulitis of left lower limb; I47.1 Supraventricular tachycardia; E66.01 Morbid (severe) obesity due to excess calories; I82.512 Chronic embolism and thrombosis of left femoral vein; I48.91 Unspecified atrial fibrillation; K75.81 Nonalcoholic steatohepatitis (NASH); E03.9 Hypothyroidism, unspecified; B95.1 Streptococcus, group B, as the cause of diseases classified elsewhere; I10 Essential (primary) hypertension; M19.90 Unspecified osteoarthritis, unspecified site; Z91.14 Patient's other noncompliance with medication regimen; Z79.01 Long term (current) use of anticoagulants; Z79.890 Hormone replacement therapy; Z79.899 Other long term (current) drug therapy
CPT/HCPCS: 36415; 70450; 76700; 78580; 80048; 80053; 80061; 80076; 81001; 82550; 82565; 83605; 83735; 83880; 84443; 84484; 85007; 85025; 85027; 85379; 85610; 85730; 87040; 87077; 87147; 87186; 87205; 87635; 93005; 93306; 93880; 93970; 97116; 97163; 97167; 97530; 99285; A9540; J0690; J0696; J2543; J3370; J3475; Q9957

== ENCOUNTER → 2022-07-30 08:09 | Outpatient (REF) | payer BC, SELFPAY ==
--- NOTE | ~2022-07-30 | NM_ITS ---
Myocardial perfusion study Indication: Non-ST elevation myocardial infarction to evaluate for myocardial ischemia Technique: The patient was brought in for a Lexiscan perfusion study on 07/30/2022. Patient performed low-level exercise and was injected 0.4 mg of Lexiscan intravenously. Within a minute of injection, 45 mCi of sestamibi was given intravenously. Images were obtained using the SPECT gamma camera interlaced with the gating device. Images were obtained in supine position. Resting perfusion study was performed on 07/31/2022. Patient was administered 45 mCi of sestamibi intravenously at rest. Images were then obtained in supine position. Images obtained with and without CT attenuation. Total DLP 151 mGy-cm. Images were processed with the software and compared side to side in short axis, horizontal long axis and vertical long axis views. Findings: The stress perfusion study showed non attenuated images show some thinning of the distal inferolateral wall of the LV myocardium. Remainder of the LV myocardium is normally perfused. Attenuation corrected images appear suboptimal due to intense subdiaphragmatic uptake. There is reduced uptake in the inferior anterior wall, apex and the anterolateral wall which is not seen on non attenuated images.. The gated study shows normal LV systolic function with calculated LVEF of 60%. LV cavity is mildly dilated size. The gated study shows normal systolic wall thickening and contraction of segments. Resting study shows non attenuated images show mildly to moderately reduced uptake in the basal inferior wall of the LV myocardium thinning of the rest of the inferior wall otherwise normal uptake in all other segments.. Gating at rest reveals normal systolic wall motion with ejection fraction at 59%. The findings are consistent with likely normal myocardial perfusion. NM/NM cardiolite stress test Impression: 1. Myocardial perfusion imaging study shows likely normal myocardial perfusion with suboptimal attenuated corrected images 2. Gated LVEF is 60% 3. Transient ischemic dilatation not present EKG nondiagnostic for ischemia
--- NOTE | 2022-07-30 08:14 | CA_ITS ---
Acquisition Time: 2022-07-30 08:17:57 Total Exercise Time: 00:02:00 Test Indications: Screening for CAD AFIB Medications: ELIQUIS ASA GABAPENTIN LEVOTHYROXINE LISINOPRIL/HCTZ METOPROLOL PREDNISONE Protocol: LEXISCAN Max HR: 098 BPM 62% of Pred: 158 BPM Max BP: 118/078 mmHG Max Work Load: 1.0 METS Pharmacological stress test with Lexiscan injection, while sitting and kicking his legs, without anginal symptoms, with isolated PVC, with normotensive response to injection, with nondiagnostic EKG for ischemia. In recovery he reported feeling off and was treated with Aminophylline 75mg IVP to reverse Lexiscan with resolution of symptom. Nuclear images pending. Test reviewed with Dr Guzman Referred By: Caleb Macias Overread By: FLOYD TO
== END ==
LOC: HO.CARD 08:09
PROVIDERS: PCP Physician Assistant; Visit Provider Internal Medicine
DX: I21.4 Non-ST elevation (NSTEMI) myocardial infarction (principal)
CPT/HCPCS: 78452; 93017; A9500; J0280; J2785

== ENCOUNTER → 2022-09-12 14:26 | Outpatient (BNVA) | payer BC, SELFPAY | PROVIDERS: PCP Physician Assistant; Visit Provider Internal Medicine | DX: I48.0 Paroxysmal atrial fibrillation (principal) ==